=== PATIENT | female | born 1960 | race Caucasian/White ===

== ENCOUNTER 2016-10-05 22:02 | Inpatient (IN) ==
[2016-10-06] MEDS ORDERED: Naloxone 0.4 MG/ML INJ IVP PRN ×2 (00:07→14:40)
[2016-10-06] MEDS ORDERED: Pantoprazole 40 MG VIAL IVP ONE (00:10)
--- NOTE | 2016-10-06 00:15 | Internal Med History&Physical ---
Date of Encounter: 10/06/16 Time of Encounter: 00:14 Assessment and Plan (1) Acute and chronic respiratory failure Current visit: Yes Status: Acute Possibly due to COPD exacerbation versus post PRBC transfusion. Patient is on BiPAP therapy with improvement in clinical status. Monitor her in the ICU. Consider intubation mechanical ventilation, if there is deterioration in the clinical status (Pt is agreeable for intubation in case of deterioration in clinical status. Qualifiers: Respiratory failure complication: hypoxia and hypercapnia Qualified Code(s) : J96.21 - Acute and chronic respiratory failure with hypoxia; J96.22 - Acute and chronic respiratory failure with hypercapnia (2) Respiratory acidosis Current visit: Yes Status: Acute COntinue BIPAP Therepy - pt is improving (3) Acute exacerbation of chronic obstructive airways disease Current visit: Yes Status: Acute Treatment Bronchodilators. We will be cautious with steroids, in view of suspected upper GI bleed. (4) Upper GI bleed Current visit: Yes Status: Acute Pt reported coffee ground emesis (pt is on anticoagulation with xarelto). Uncertain if this is due to upper GI bleed versus epistaxis. Patient is started on pantoprazole infusion. Gastroenterology consultation (5) CAD (coronary artery disease) Current visit: Yes Status: Acute COntinue home medications Qualifiers: Coronary Disease-Associated Artery/Lesion type: [place] artery [place] vs. transplanted heart: [place] heart Associated angina: without angina Qualified Code(s): I25.10 - Atherosclerotic heart disease of [place] coronary artery without angina pectoris (6) Hypertension Current visit: Yes Status: Acute Monitor BP - consider restarting home meds Qualifiers: Hypertension type: essential hypertension Qualified Code(s): I10 - Essential (primary) hypertension (7) Anemia Current visit: No Status: Chronic Reviewed labs from Aug 2016 - Iron studies show iron deficiency; vitamin B12 and folate levels - normal Qualifiers: Anemia type: iron deficiency Iron deficiency anemia type: unspecified iron deficiency Qualified Code(s): D50.9 - Iron deficiency anemia, unspecified (8) Nicotine dependence Current visit: Yes Status: Acute Pt apparently stopped smoking about 4 days ago. Does not want nicotine patches. Qualifiers: Nicotine product type: cigarettes Substance use status: other nicotine- induced disorder Qualified Code(s): F17.218 - Nicotine dependence, cigarettes , with other nicotine-induced disorders Internal Medicine - H&P: HPI Chief complaint: Coffee-ground emesis Admitted From: Hospital to Hospital Transfer Plans for Post Hospital Care: Transfer Half-Way Facility History of present illness: Ms. De Oliveira is a 56 year old female with Past mental history significant for COPD , coronary artery disease, hyperlipidemia, hypertension, pulmonary nodule. She is on chronic anticoagulation with xarelto, but she does not know why. She was recently admitted to [facility], in Aug 2016 and was discharged to SNF for rehabilitation. She apparently had an episode of coffee-ground emesis, and was taken to the emergency department at [facility]. She was noted to have hemoglobin of 6.8. She was given 1 unit of PRBC transfusion. She apparently was hypoxic on ABG showed CO2 retention and respiratory acidosis. She was started on BiPAP therapy and repeat ABG was worsening. She did not want to be intubated. She is transferred to the hospitalist service at [facility]. Pt reports an episode of coffee-ground emesis and blood. Reports dark stool but she cannot confirm if that is black in color. Reports shortness of breath and cough and whitish sputum. She denies chest pain, fever, chills, abdominal pain, dysuria, hematuria. Denies dizziness or loss of consciousness. Past Med Surg Social Fam HX - Past Medical History Medical history: COPD, coronary artery disease, hyperlipidemia, hypertension, myocardial infarction Psychiatric history: anxiety, depression - Past Surgical History Surgical History: angioplasty/stent - Social History Smoking Status: Current every day smoker Smokeless Tobacco Status: No Alcohol use: none Drug use: none - Family History Father Living Status: Hx Family Cardiac Disorders: No Hx Family Respiratory Disorders: No Hx Family Cancer: Yes (Colon) Hx Family GI Disorders: No Hx Family Endocrine Disorder: No Hx Family Neuromuscular Disorders: No Hx Family Neurologic Disorders: No Hx Family HEENT Disorders: No Hx Family Autoimmune Disorders: No Mother Living Status: Hx Family Cardiac Disorders: Yes (bradycardia) Hx Family Respiratory Disorders: Yes (copd, emphysema) Hx Family Cancer: Yes (lung cancer) Hx Family GI Disorders: No Hx Family Endocrine Disorder: Yes (Diabetes) Hx Family Neuromuscular Disorders: No Hx Family Neurologic Disorders: No Hx Family HEENT Disorders: No Hx Family Autoimmune Disorders: No Internal Medicine - H&P: Meds Atorvastatin Calcium [Lipitor] 80 mg PO DAILY 04/28/15 [History] Budesonide/Formoterol 160/4.5 [Symbicort] 2 puff IH BIDR 04/28/15 [History] Ticagrelor [Brilinta] 90 mg PO BID 04/28/15 [History] Rivaroxaban [Xarelto] 15 mg PO DAILY 08/29/15 [History] Roflumilast [Daliresp] 500 mcg PO DAILY 08/29/15 [History] Albuterol Sulfate [Ventolin Hfa] 18 gm IH BID 08/24/16 [History] Calcium Carbonate [Calcium] 600 mg PO BID 09/24/16 [History] Guaifenesin [Mucinex] 600 mg PO BID 09/24/16 [History] Phos-NaK [Neutra-Phos] 1 each PO AD 09/24/16 [History] Aspirin [Lo-Dose Aspirin EC] 81 mg PO DAILY 10/05/16 [History] Allergies codeine Allergy (Verified 08/24/16 14:49) unknown All Systems PM: A 10-system review of systems was performed and is negative for pertinent findings except as documented above in the HPI. - Constitutional Vitals: Temp Pulse Resp BP Pulse Ox 97.5 F L 85 20 99/57 100 10/05/16 23:40 10/05/16 23:41 10/05/16 23:41 10/05/16 23:41 10/05/16 23:41 Exam: General: Not in acute distress at the time of my evaluation HEENT: BiPAP in place. No scleral icterus. conjunctival palor present Neck: No obvious neck swellings Lungs: Diminished breath sounds bilaterally Cardiac: Regular rate and rhythm. No significant murmurs Abdomen: Soft, non tender. Bowel sounds present Neurological: Alert and oriented. No gross localizing deficits Psych: Not aggressive or agitated Extremities: no significant leg edema Skin: No generalized rash Internal Med - H&P Results - Labs CBC & Chem 7: 10/06/16 00:40 10/06/16 00:40 - VTE Reasons for not Prescribing Prophylaxis: Not indicated-Anticoagulated or INR therapeutic
[2016-10-06] MEDS: Ipratropium/Albuterol Neb 3 ML IH SCH ×6 (00:21→22:42)
[2016-10-06 00:25] LABS: ABG Base Excess 22.5 mEq/L (-2.0 to 3.0); ABG HCO3 52.4 mEQ/L (21-27); ABG Oxygen Saturation 98 % (95-98); ABG PH 7.31 pH Units (7.32-7.45); ABG PO2 112 mmHg (85-104); ABG TCO2 55.6 mEq/L (20-26)
[2016-10-06 00:26] LABS: Blood Gas FiO2 50 %
[2016-10-06 00:27] LABS: ABG PCO2 104 mmHg (35-45)
[2016-10-06] MEDS: Pantoprazole 40 MG in 0.9 % Sodium Chloride Mini Bag 100 ML IVC SCH ×3 (00:31→10:08)
[2016-10-06 01:06] LABS: Hemoglobin 8.3 g/dL (11.5-15.4); Red Cell Distribution Width 20.1 % (11.5-14.5)
[2016-10-06 01:08] LABS: Hematocrit 28.9 % (35.3-44.9); Mean Corpuscular HGB Conc 28.7 g/dL (31.6-35.5); Mean Corpuscular Hemoglobin 27.2 pg (28.0-33.3); Mean Corpuscular Volume 94.8 fL (83.0-100.0); Platelet Count 201 K/mcL (140-400); Red Blood Count 3.05 M/mcL (3.82-4.97)
[2016-10-06 01:23] LABS: BUN/Creatinine Ratio 21 (6-26); Blood Urea Nitrogen 10 mg/dL (7-20); Calcium 8.7 mg/dL (8.6-10.8); Chloride 94 mEq/L (98-109); Glucose 128 mg/dL (70-99); Magnesium 1.5 mg/dL (1.6-2.6); Osmolality,Calculated 289 (280-300); Sodium 139 mEq/L (136-145); eGFR For African Americans > 60 (> 60); eGFR For Non-African Americans > 60 (> 60)
[2016-10-06 01:25] LABS: Potassium 5.1 mEq/L (3.5-4.5)
[2016-10-06 01:26] LABS: Carbon Dioxide 41 mEq/L (19-29)
[2016-10-06] MEDS ORDERED: Furosemide 20 MG/2 ML VIAL IVP ONE ×3 (07:12→08:01)
[2016-10-06] MEDS ORDERED: Magnesium Sulfate 2 GM in D5% in Water 100 ML IVPB ONE (07:13)
--- NOTE | 2016-10-06 07:20 | Pulmonology Consult Note ---
<Oskar Kay W - Last Filed: 10/06/16 12:04> Medications and Allergies Atorvastatin Calcium [Lipitor] 80 mg PO DAILY 04/28/15 [History] Budesonide/Formoterol 160/4.5 [Symbicort] 2 puff IH BIDR 04/28/15 [History] Ticagrelor [Brilinta] 90 mg PO BID 04/28/15 [History] Rivaroxaban [Xarelto] 15 mg PO DAILY 08/29/15 [History] Roflumilast [Daliresp] 500 mcg PO DAILY 08/29/15 [History] Albuterol Sulfate [Ventolin Hfa] 18 gm IH BID 08/24/16 [History] Calcium Carbonate [Calcium] 600 mg PO BID 09/24/16 [History] Guaifenesin [Mucinex] 600 mg PO BID 09/24/16 [History] Phos-NaK [Neutra-Phos] 1 each PO AD 09/24/16 [History] Aspirin [Lo-Dose Aspirin EC] 81 mg PO DAILY 10/05/16 [History] Allergies codeine Allergy (Verified 08/24/16 14:49) unknown All Systems: A 10-system review of systems was performed and is negative for pertinent findings except as documented above in the HPI. Physical Examination Vital Signs: Vital Signs, Last 4 Hours Temp Pulse Resp BP Pulse Ox 10/06/16 07:59 97.7 F 10/06/16 07:00 97.7 F 86 19 90/59 97 10/06/16 05:56 78 30 94/59 94 L Results - Laboratory Findings CBC and BMP: 10/06/16 10:40 10/06/16 10:40 ABG ABG pH 7.31 pH Units (7.32-7.45) L D 10/06/16 00:17 ABG pCO2 104 mmHg (35-45) H* D 10/06/16 00:17 ABG pO2 112 mmHg (85-104) H 10/06/16 00:17 ABG O2 Saturation 98 % (95-98) 10/06/16 00:17 Abnormal lab findings: Abnormal lab results WBC 3.9 K/mcL (4.3-11.1) L 10/06/16 00:40 RBC 3.05 M/mcL (3.82-4.97) L 10/06/16 00:40 Hgb 8.3 g/dL (11.5-15.4) L 10/06/16 00:40 Hct 28.9 % (35.3-44.9) L 10/06/16 00:40 MCH 27.2 pg (28.0-33.3) L 10/06/16 00:40 MCHC 28.7 g/dL (31.6-35.5) L 10/06/16 00:40 RDW 20.1 % (11.5-14.5) H 10/06/16 00:40 ABG pH 7.31 pH Units (7.32-7.45) L D 10/06/16 00:17 ABG pCO2 104 mmHg (35-45) H* D 10/06/16 00:17 ABG pO2 112 mmHg (85-104) H 10/06/16 00:17 ABG HCO3 52.4 mEQ/L (21-27) H 10/06/16 00:17 ABG Total CO2 55.6 mEq/L (20-26) H 10/06/16 00:17 ABG Base Excess 22.5 mEq/L (-2.0 to 3.0) H 10/06/16 00:17 Potassium 5.1 mEq/L (3.5-4.5) H D 10/06/16 00:40 Chloride 94 mEq/L (98-109) L 10/06/16 00:40 Carbon Dioxide 41 mEq/L (19-29) H* 10/06/16 00:40 Creatinine 0.47 mg/dL (0.57-1.11) L 10/06/16 00:40 Glucose 128 mg/dL (70-99) H 10/06/16 00:40 POC Glucose 147 (58-89) H 10/05/16 23:45 Magnesium 1.5 mg/dL (1.6-2.6) L 10/06/16 00:40 - Clinical Findings Intake & Output: Intake & Output 10/05/16 10/06/16 10/06/16 23:59 07:59 15:59 Intake Total 0 / 0 100 / 100 Output Total 900 / 900 Balance 0 / 0 -800 / -800 Weight 47 kg Consult Discharge Plan - Plan Referrals: Larry Chanel MD [Primary Care Provider] - - Attending Attestation I examined this patient and my medical decision-making was reviewed with the [employer] SUPERVISOR/PA/Advanced Practice Nurse/Resident Physician. I agree with the documented findings, disposition and treatment plan as described except to the extent set forth below. Patient seen and examined at bedside Labs, radiology, chart personally reviewed. All lines examined without evidence of infection. Neuropsych: Alert an Oriented follows all commands Pulm: Acute on chronic hypoxic and hypercarbic respiratory failure likely secondary to pulmonary edema with severe underlying COPD continue diuresis bilevel positive airway pressure support recheck ABG Cards: ECG without STEMI Trope within normal limits with atrial fibrillation on Plavix, ASA and NOAC being held for concern of GI hemorrhage FEN-GI: Possible upper GI be bleed was considered for coffee-ground emesis no H& H is stable no further evidence of bleeding today continue twice a day dosing of PPI -GI consulted. Cont NPO status Renal: No AK continue to monitor urine output checked twice daily renal function panel while actively diuresing ID: No evidence of acute infection continue to monitor Heme/Onc: Mechanical SCDs for DVT prophylaxis Endo: Glucose monitor Integ/MSK: Skin Care Per ICU protocol CODE: Full code <Kevin Wyatt - Last Filed: 10/06/16 12:22> Date of Encounter: 10/06/16 Time of Encounter: 07:20 Assessment and Plan (1) Upper GI bleed Current Visit: Yes Status: Suspected Patient with subjective melena admittedly over the last few months one episode of coffee ground emesis she is currently anticoagulated on Xarelto, Brilinta, and aspirin for a fib and coronary artery disease with a stent in the RCA her hemoglobin was 6.8 on arrival at [facility]. She received 1 unit packed PRBC with appropriate response of increase hemoglobin to 8.3. Repeat hemoglobin this morning was 7.6. plan -hold anticoagulation -type and screen -Protonix IV BID -PRBC transfusions to maintain hemoglobin greater than 7 -Doroteo has been consulted, appreciate the recommendations. Spoke with Doroteo CHAPA this morning and they were planned to do and EGD Sunday. -Blood cultures and sputum cultures pending -CBC, BMP BID (2) Acute and chronic respiratory failure Current Visit: Yes Status: Acute Patient with history of COPD, lifelong smoker, still smoking she currently uses 4 L of oxygen at home all the time she is currently oxygenating appropriately on noninvasive bilevel ventilation set to 35% FI02 with saturations in the mid-90s she may require intubation if her clinical status deteriorates initially she had a significant respiratory acidosis while at [facility]. pH was 7.17, PCO2 125, HCO3 45.1 most recent ABG shows pH of 7.49, PCO2 of 68, HCO3 of 51.8 plan -one-time dose of Diamox -noninvasive ventilation with bilevel -maintain oxygen saturations greater than 88% -bronchodilators -Solu-Medrol 40 mg BID -serial ABGs Qualifiers: Respiratory failure complication: hypoxia and hypercapnia Qualified Code(s) : J96.21 - Acute and chronic respiratory failure with hypoxia; J96.22 - Acute and chronic respiratory failure with hypercapnia (3) Hyperkalemia Current Visit: Yes Status: Acute Initial potassium of 5.1. Patient received 1 dose of Kayexelate repeat potassium 4.0. Recheck chemistry panel this afternoon and in the morning. (4) CAD (coronary artery disease) Current Visit: Yes Status: Chronic History of an NSTEMI in 2013. Had one stent placed in the RCA. On Brilinta and aspirin. Hold For now due to possible G.I. bleed patient not complaining of any chest pain. Initial troponins 0.[address] wave abnormality Qualifiers: Coronary Disease-Associated Artery/Lesion type: [place] artery [place] vs. transplanted heart: [place] heart Associated angina: without angina Qualified Code(s): I25.10 - Atherosclerotic heart disease of [place] coronary artery without angina pectoris (5) Anemia Current Visit: No Status: Suspected Hemoglobin of 6.7 on admission to [facility]. Transfused 1 unit PRBC, repeat hemoglobin 8.3 hemoglobin this morning 7.6 her hemoglobin the last 2 years baselines about 10. G.I. on board, plan for EGD on Sunday. Transfuse as necessary to keep hemoglobin above 7 Qualifiers: Anemia type: iron deficiency Iron deficiency anemia type: unspecified iron deficiency Qualified Code(s): D50.9 - Iron deficiency anemia, unspecified (6) Afib Current Visit: Yes Status: Chronic Medical records search revealed history of a fib. Currently she is a normal sinus rhythm She does not take any rate control medication, or antiarrhythmic's. Anticoagulated on Xarelto. Will hold at this time due to possible G.I. bleed. Consider adding IV beta simon for rate control if she becomes tachycardic Qualifiers: Atrial fibrillation type: paroxysmal Qualified Code(s): I48.0 - Paroxysmal atrial fibrillation History of Present Illness Consult date: 10/06/16 Requesting physician: Param Cheng Reason for consult: hypoxemia Chief complaint: coffee ground emesis History of present illness: Ms. De Oliveira is a 56 year old female with Past mental history significant for COPD , coronary artery disease, ischemic cardiomyopathy S/P stent in RCA in 2013 (on Brilinta and ASA), PVD, hyperlipidemia, hypertension, pulmonary nodule, paroxysmal a fib anticoagulated on Xarelto. She lives in a [place] and had one episode of coffee ground emesis. Nursing staff at the facility sent her to the emergency room at [facility]. She also states that she has had occasional dark tarry stools. She was noted to have hemoglobin of 6.8. She was given 1 unit of PRBC transfusion. She was hypoxic on ABG showed CO2 retention and respiratory acidosis. She was started on BiPAP therapy and repeat ABG was worsening. Pt reports an episode of coffee-ground emesis and blood. Reports dark stool but she cannot confirm if that is black in color. Reports shortness of breath and cough and whitish sputum. She denies chest pain, fever, chills, abdominal pain, dysuria, hematuria. Denies dizziness or loss of consciousnes Past Med Surg Social Fam HX - Past Medical History Medical history: COPD, coronary artery disease, hyperlipidemia, hypertension, myocardial infarction Psychiatric history: anxiety, depression - Past Surgical History Surgical History: angioplasty/stent - Social History Smoking Status: Current every day smoker Smokeless Tobacco Status: No Alcohol use: none Drug use: none - Family History Father Living Status: Hx Family Cardiac Disorders: No Hx Family Respiratory Disorders: No Hx Family Cancer: Yes (Colon) Hx Family GI Disorders: No Hx Family Endocrine Disorder: No Hx Family Neuromuscular Disorders: No Hx Family Neurologic Disorders: No Hx Family HEENT Disorders: No Hx Family Autoimmune Disorders: No Mother Living Status: Hx Family Cardiac Disorders: Yes (bradycardia) Hx Family Respiratory Disorders: Yes (copd, emphysema) Hx Family Cancer: Yes (lung cancer) Hx Family GI Disorders: No Hx Family Endocrine Disorder: Yes (Diabetes) Hx Family Neuromuscular Disorders: No Hx Family Neurologic Disorders: No Hx Family HEENT Disorders: No Hx Family Autoimmune Disorders: No All Systems: A 10-system review of systems was performed and is negative for pertinent findings except as documented above in the HPI. - Constitutional Constitutional: fatigue, lethargy - EENT Nose, mouth and throat: epistaxis - Cardiovascular Cardiovascular: dyspnea, dyspnea on exertion, no chest pain, no diaphoresis, no radiating jaw, neck or arm pain - Respiratory Respiratory: cough, dyspnea, dyspnea on exertion, no hemoptysis - Gastrointestinal Gastrointestinal: melena, nausea, vomiting, no abdominal pain, no cramping, no diarrhea, no hematemesis, no hematochezia - Neurological Neurological: no confusion, no convulsions, no focal weakness, no headache(s), no syncope - Psychiatric Psychiatric: anxiety Physical Examination Vital Signs: Vital Signs, Last 4 Hours Temp Pulse Resp BP Pulse Ox 10/06/16 05:56 78 30 94/59 94 L 10/06/16 05:00 77 30 90/59 94 L 10/06/16 04:49 97.3 F L 10/06/16 04:30 26 94 L 10/06/16 04:01 79 27 87/50 93 L General appearance: appears uncomfortable Eyes: nonicteric ENT: oropharynx dry Neck: supple Effort: mildly labored Auscultation: bilateral: wheezes, rhonchi Cardiovascular: regular rate and rhythm Gastrointestinal: normoactive bowel sounds, tender, non-distended, guarding Extremities: no cyanosis, no edema, no clubbing normal mental status, non-focal exam Results - Laboratory Findings CBC and BMP: 10/06/16 10:40 10/06/16 10:40 ABG ABG pH 7.31 pH Units (7.32-7.45) L D 10/06/16 00:17 ABG pCO2 104 mmHg (35-45) H* D 10/06/16 00:17 ABG pO2 112 mmHg (85-104) H 10/06/16 00:17 ABG O2 Saturation 98 % (95-98) 10/06/16 00:17 Abnormal lab findings: Abnormal lab results WBC 3.9 K/mcL (4.3-11.1) L 10/06/16 00:40 RBC 3.05 M/mcL (3.82-4.97) L 10/06/16 00:40 Hgb 8.3 g/dL (11.5-15.4) L 10/06/16 00:40 Hct 28.9 % (35.3-44.9) L 10/06/16 00:40 MCH 27.2 pg (28.0-33.3) L 10/06/16 00:40 MCHC 28.7 g/dL (31.6-35.5) L 10/06/16 00:40 RDW 20.1 % (11.5-14.5) H 10/06/16 00:40 ABG pH 7.31 pH Units (7.32-7.45) L D 10/06/16 00:17 ABG pCO2 104 mmHg (35-45) H* D 10/06/16 00:17 ABG pO2 112 mmHg (85-104) H 10/06/16 00:17 ABG HCO3 52.4 mEQ/L (21-27) H 10/06/16 00:17 ABG Total CO2 55.6 mEq/L (20-26) H 10/06/16 00:17 ABG Base Excess 22.5 mEq/L (-2.0 to 3.0) H 10/06/16 00:17 Potassium 5.1 mEq/L (3.5-4.5) H D 10/06/16 00:40 Chloride 94 mEq/L (98-109) L 10/06/16 00:40 Carbon Dioxide 41 mEq/L (19-29) H* 10/06/16 00:40 Creatinine 0.47 mg/dL (0.57-1.11) L 10/06/16 00:40 Glucose 128 mg/dL (70-99) H 10/06/16 00:40 POC Glucose 147 (58-89) H 10/05/16 23:45 Magnesium 1.5 mg/dL (1.6-2.6) L 10/06/16 00:40 - Clinical Findings Intake & Output: Intake & Output 10/05/16 10/05/16 10/06/16 15:59 23:59 07:59 Intake Total 0 / 0 100 / 100 Output Total 900 / 900 Balance 0 / 0 -800 / -800 Weight 47 kg
[2016-10-06 10:55] LABS: Hematocrit 25.9 % (35.3-44.9); Hemoglobin 7.6 g/dL (11.5-15.4); Mean Corpuscular HGB Conc 29.3 g/dL (31.6-35.5); Mean Corpuscular Hemoglobin 27.2 pg (28.0-33.3); Mean Corpuscular Volume 92.8 fL (83.0-100.0); Mean Platelet Volume 11.6 fL (9.4-12.4); Platelet Count 208 K/mcL (140-400); Red Blood Count 2.79 M/mcL (3.82-4.97)
--- NOTE | 2016-10-06 10:55 | Gastroenterology Consult Note ---
<CarsonJose Baez - Last Filed: 10/06/16 11:10> Date of Encounter: 10/06/16 Time of Encounter: 09:50 - Assessment and plan (1) Acute and chronic respiratory failure Current Visit: Yes Status: Acute Assessment and plan: Likely secondary to COPD exacerbation. Pt currently on BiPAP. ABG pH 7.31, CO2 104, O2 112, HCO3 52.4. Management per ICU team Qualifiers: Respiratory failure complication: hypoxia and hypercapnia Qualified Code(s) : J96.21 - Acute and chronic respiratory failure with hypoxia; J96.22 - Acute and chronic respiratory failure with hypercapnia (2) Upper GI bleed Current Visit: Yes Status: Acute Assessment and plan: Pt with coffee-ground emesis and bright red blood. She is on Xarelto. Continue Protonix drip. Plan for EGD once respiratory status is stabilized. (3) Anemia Current Visit: No Status: Chronic Assessment and plan: Iron 8 with ferritin 8 on 09/19/2016. Continue to monitor CBC and transfuse PRBC as indicated. Plan for EGD once respiratory status is stabilized. Qualifiers: Anemia type: iron deficiency Iron deficiency anemia type: unspecified iron deficiency Qualified Code(s): D50.9 - Iron deficiency anemia, unspecified - Time Spent With Patient Total time spent is greater than 50% in coordination of care (as documented) at patient's floor/unit and/or counseling patient: GI History of Present Illness - Data of Consult Patient: new to practice Consult date: 10/06/16 Requesting Physician: Gavino Lancaster MD - Consult Narrative Reason for consult: hematemesis History of present illness: Ms. De Oliveira is a 56 year old female with PMHx of COPD, CAD, HLD, HTN, [place] who presented to [facility] ED with episode of coffee-ground emesis and bright red blood. She also reports dark stool, but unsure if it was black. She c/o shortness of breath. She denies chest pain, fever, abdominal pain, hematuria, dizziness, or loss of consciousness. On presentation to the ED, Hgb was 6.8 and was transfused 1 unit PRBC. Pt was also hypoxic with CO2 retention and was placed on BiPAP. Procedures: None NSAIDs: ASA Anticoagulation: Xarelto Past Med Surg Social Fam HX - Past Medical History Medical history: COPD, coronary artery disease, hyperlipidemia, hypertension, myocardial infarction Psychiatric history: anxiety, depression - Past Surgical History Surgical History: angioplasty/stent - Social History Smoking Status: Current every day smoker Smokeless Tobacco Status: No Alcohol use: none Drug use: none - Family History Father Living Status: Hx Family Cardiac Disorders: No Hx Family Respiratory Disorders: No Hx Family Cancer: Yes (Colon) Hx Family GI Disorders: No Hx Family Endocrine Disorder: No Hx Family Neuromuscular Disorders: No Hx Family Neurologic Disorders: No Hx Family HEENT Disorders: No Hx Family Autoimmune Disorders: No Mother Living Status: Hx Family Cardiac Disorders: Yes (bradycardia) Hx Family Respiratory Disorders: Yes (copd, emphysema) Hx Family Cancer: Yes (lung cancer) Hx Family GI Disorders: No Hx Family Endocrine Disorder: Yes (Diabetes) Hx Family Neuromuscular Disorders: No Hx Family Neurologic Disorders: No Hx Family HEENT Disorders: No Hx Family Autoimmune Disorders: No - Gastrointestinal Gastrointestinal: Present: as per HPI - Constitutional Constitutional: as per HPI - EENT Eyes: as per HPI Ears: Present: as per HPI Nose, mouth and throat: Present: as per HPI - Cardiovascular Cardiovascular ROS: Present: as per HPI - Respiratory Respiratory IM: Present: as per HPI - Genitourinary Genitourinary: Absent: change in color, Urinary frequency - Neurological ROS Neurological GI: Present: as per HPI - Hematologic/Lymphatic Hematologic/Lymphatic pediatric: Present: as per HPI - Musculoskeletal Musculoskeletal ROS GI: Present: as per HPI - Integumentary Integumentary GI: Present: as per HPI - Psychiatric ROS Psychiatric GI: Present: as per HPI - Endocrine Endocrine IM: Present: as per HPI - Constitutional Vitals: Temp Pulse Resp BP Pulse Ox 97.7 F 93 23 101/70 95 10/06/16 07:59 10/06/16 10:01 10/06/16 10:01 10/06/16 10:01 10/06/16 10:01 General appearance: Present: cooperative, A&O X 3, no acute distress, answers questions appropriately - Head Head exam: Present: atraumatic, normocephalic - Eye Eye exam: Present: normal appearance, sclera anicteric - ENT ENT exam: Present: mucous membranes dry - Neck Neck exam general surgery: Present: normal inspection, trachea midline - Respiratory Respiratory exam: Present: decreased breath sounds, CTAB. Absent: rales, rhonchi - Cardiovascular Cardiovascular exam: Present: RRR, +S1, +S2 - GI/Abdominal GI/Abdominal exam: Present: soft, no peritoneal signs. Absent: distended, firm , guarding, tenderness - Rectal Rectal exam: Present: deferred - Extremities Exam Extremities exam: Present: warm - Neurological Exam Neurological exam: Present: no focal deficits - Psychiatric Psychiatric exam: Present: normal affect, normal mood - Skin Skin exam: Present: dry, intact, normal color, warm Results - Labs CBC & Chem 7: 10/06/16 10:40 10/06/16 00:40 Labs: Last Result Calcium 8.7 mg/dL (8.6-10.8) 10/06/16 00:40 Entire Visit Hgb 8.3 g/dL (11.5-15.4) L 10/06/16 00:40 Hct 28.9 % (35.3-44.9) L 10/06/16 00:40 - ABG ABG results: ABG ABG pH 7.31 pH Units (7.32-7.45) L D 10/06/16 00:17 ABG pCO2 104 mmHg (35-45) H* D 10/06/16 00:17 ABG pO2 112 mmHg (85-104) H 10/06/16 00:17 ABG O2 Saturation 98 % (95-98) 10/06/16 00:17 Consult Discharge Plan - Plan Referrals: Larry Chanel MD [Primary Care Provider] - <Tk Anthony - Last Filed: 10/06/16 12:41> Time of Encounter: 13:00 - Time Spent With Patient Total time spent is greater than 50% in coordination of care (as documented) at patient's floor/unit and/or counseling patient: GI History of Present Illness - Data of Consult Requesting Physician: Gavino Lancaster MD - Consult Narrative History of present illness: Ms. De Oliveira is a 56 year old female - Constitutional Vitals: Temp Pulse Resp BP Pulse Ox 97.7 F 93 23 101/70 95 10/06/16 07:59 10/06/16 10:01 10/06/16 10:01 10/06/16 10:01 10/06/16 10:01 Results - Labs CBC & Chem 7: 10/06/16 10:40 10/06/16 10:40 Labs: Last Result Calcium 8.5 mg/dL (8.6-10.8) L 10/06/16 10:40 Troponin I 0.00 ng/mL (0-0.03) 10/06/16 10:40 Entire Visit Hgb 7.6 g/dL (11.5-15.4) L 10/06/16 10:40 Hct 25.9 % (35.3-44.9) L 10/06/16 10:40 PT 12.3 Seconds (9.4-12.1) H 10/06/16 10:40 - ABG ABG results: ABG ABG pH 7.49 pH Units (7.32-7.45) H 10/06/16 11:20 ABG pCO2 68 mmHg (35-45) H 10/06/16 11:20 ABG pO2 58 mmHg (85-104) L 10/06/16 11:20 ABG O2 Saturation 92 % (95-98) L 10/06/16 11:20 PT/INR, D-dimer PT 12.3 Seconds (9.4-12.1) H 10/06/16 10:40 - Attending Attestation I examined this patient and my medical decision-making was reviewed with the CATTLE ALLEY WORKER/PA/Advanced Practice Nurse/Resident Physician. I agree with the documented findings, disposition and treatment plan as described except to the extent set forth below. Patient seen coffee-ground emesis is most probably due to some gastritis. Patient does has bad lungs and there is no active GI bleed there is no acute indication for scope at this point
[2016-10-06 10:59] LABS: INR 1.1; Prothrombin Time 12.3 Seconds (9.4-12.1)
[2016-10-06 11:01] LABS: Activated Partial Thrombo Time 24.2 Seconds (26.0-36.0)
[2016-10-06 11:04] LABS: BUN/Creatinine Ratio 26 (6-26); Blood Urea Nitrogen 13 mg/dL (7-20); Calcium 8.5 mg/dL (8.6-10.8); Chloride 93 mEq/L (98-109); Glucose 110 mg/dL (70-99); Osmolality,Calculated 297 (280-300); Sodium 143 mEq/L (136-145); eGFR For African Americans > 60 (> 60); eGFR For Non-African Americans > 60 (> 60)
[2016-10-06 11:18] LABS: Carbon Dioxide 43 mEq/L (19-29)
[2016-10-06 11:25] LABS: ABG Base Excess 25.5 mEq/L (-2.0 to 3.0); ABG HCO3 51.8 mEQ/L (21-27); ABG Oxygen Saturation 92 % (95-98); ABG PCO2 68 mmHg (35-45); ABG PH 7.49 pH Units (7.32-7.45); ABG PO2 58 mmHg (85-104); ABG TCO2 53.9 mEq/L (20-26)
[2016-10-06 11:31] LABS: Blood Gas FiO2 35 %
[2016-10-06 11:34] LABS: Lymphocytes # 0.6 K/mcL (0.6-4.6); Monocytes # 0.6 K/mcL (0.0-1.3); Neutrophils # 3.2 K/mcL (1.6-8.9)
[2016-10-06 11:35] LABS: Anisocytosis 1+ (Not Present); Polychromasia 1+ (Not Present)
[2016-10-06] MEDS: MethylPREDNISolone 40 MG/ML VIAL IVP SCH (17:46)
[2016-10-06] MEDS ORDERED: MethylPREDNISolone 40 MG/ML VIAL IVP SCH (18:00)
[2016-10-06 18:07] LABS: Hemoglobin 7.7 g/dL (11.5-15.4)
[2016-10-06] MEDS: Pantoprazole 40 MG VIAL IVP SCH (20:32)
[2016-10-06] MEDS ORDERED: Pantoprazole 40 MG VIAL IVP SCH (21:00)
[2016-10-07] MEDS: Ipratropium/Albuterol Neb 3 ML IH SCH ×7 (00:21→23:30)
[2016-10-07] MEDS: Budesonide/Formoterol 160/4.5 MDI IH SCH ×3 (00:22→19:54)
[2016-10-07 01:04] LABS: Hematocrit 26.3 % (35.3-44.9)
[2016-10-07 04:50] LABS: Hematocrit 26.4 % (35.3-44.9); Hemoglobin 8.1 g/dL (11.5-15.4); Immature Granulocytes % 0.5 % (0-4); Lymphocytes # 0.6 K/mcL (0.6-4.6); Lymphocytes % 7.2 %; Mean Corpuscular HGB Conc 30.7 g/dL (31.6-35.5); Mean Corpuscular Hemoglobin 27.6 pg (28.0-33.3); Mean Corpuscular Volume 90.1 fL (83.0-100.0); Mean Platelet Volume 11.3 fL (9.4-12.4); Monocytes # 0.3 K/mcL (0.0-1.3); Neutrophils # 7.3 K/mcL (1.6-8.9); Platelet Count 256 K/mcL (140-400); Red Blood Count 2.93 M/mcL (3.82-4.97); Red Cell Distribution Width 20.9 % (11.5-14.5); Segmented Neutrophils % 88.3 %
[2016-10-07 04:59] LABS: BUN/Creatinine Ratio 34 (6-26); Blood Urea Nitrogen 18 mg/dL (7-20); Calcium 8.2 mg/dL (8.6-10.8); Carbon Dioxide 38 mEq/L (19-29); Chloride 90 mEq/L (98-109); Glucose 115 mg/dL (70-99); Magnesium 1.3 mg/dL (1.6-2.6); Osmolality,Calculated 287 (280-300); Potassium 3.2 mEq/L (3.5-4.5); Sodium 137 mEq/L (136-145); eGFR For African Americans > 60 (> 60); eGFR For Non-African Americans > 60 (> 60)
[2016-10-07] MEDS: MethylPREDNISolone 40 MG/ML VIAL IVP SCH ×2 (05:52→17:11)
[2016-10-07] MEDS ORDERED: Potassium Chloride 20 MEQ, Lidocaine 1% 2 ML in D5% in Water 250 ML IVPB ONE (07:45)
[2016-10-07] MEDS ORDERED: Magnesium Sulfate 2 GM in D5% in Water 100 ML IVPB ONE (07:45)
[2016-10-07] MEDS: Pantoprazole 40 MG VIAL IVP SCH ×2 (08:47→20:05)
[2016-10-07] MEDS: DALIRESP 500 MCG PO SCH (09:09)
[2016-10-07] MEDS ORDERED: Ipratropium/Albuterol Neb 3 ML IH PRN (10:31)
--- NOTE | 2016-10-07 10:36 | Internal Med Progress Note ---
Date of Encounter: 10/07/16 Time of Encounter: 10:34 - Assessment and plan (1) Anemia Current Visit: No Status: Suspected Assessment and plan: Acute blood loss anemia secondary to UGIB No acute episodes reported since hospitalization H&H low but acceptable Will continue to closely monitor and will transfuse to maintain hgb>7 GI on board, awaiting follow up for EGD as patient's respiratory status is improved continue to hold anticoagulation Qualifiers: Anemia type: iron deficiency Iron deficiency anemia type: unspecified iron deficiency Qualified Code(s): D50.9 - Iron deficiency anemia, unspecified (2) Upper GI bleed Current Visit: Yes Status: Suspected Assessment and plan: Plan as listed above Continue PPI BID (3) Acute and chronic respiratory failure Current Visit: Yes Status: Acute Assessment and plan: History of COPD and an everyday smoker. On home oxygen History of chronic respiratory failure with hypercapnia Currently saturating well on nasal cannula will continue systemic steroids and bronchodilator support O2 supplementation Bipap at bedtime serial ABG as needed continue to monitor O2 sat, goal O2 sat: 89-92% GI ppx for high steroid therapy Qualifiers: Respiratory failure complication: hypoxia and hypercapnia Qualified Code(s) : J96.21 - Acute and chronic respiratory failure with hypoxia; J96.22 - Acute and chronic respiratory failure with hypercapnia (4) Acute exacerbation of chronic obstructive airways disease Current Visit: Yes Status: Acute Assessment and plan: Plan as listed above (5) Electrolyte abnormality Current Visit: Yes Status: Acute Assessment and plan: Hypomagnesemia and Hypophosphatemia Mg and Phos supplemented continue to monitor electrolytes and replace as needed (6) Afib Current Visit: Yes Status: Chronic Assessment and plan: Reported history of Afib but not on any rate control medications Currently rate controlled and in sinus rhythm Holding anticoagulation due to GI bleed continue to closely monitor Add BB if needed for rate control Qualifiers: Atrial fibrillation type: paroxysmal Qualified Code(s): I48.0 - Paroxysmal atrial fibrillation (7) Tobacco abuse Current Visit: Yes Status: Acute Assessment and plan: Smoking cessation counseling provided patient not ready to quit at this time refused nicotine replacement therapy (8) DVT prophylaxis Current Visit: Yes Status: Acute Assessment and plan: IPCD - Subjective Interval history: Patient is a 56y/o female who was admitted to the ICU for acute respiratory distress and Upper GI bleed. Patient was transferred to overnight. Patient seen and examined at bedside. Resting in bed. Denies any episodes of hemetemesis since hospitalization. Breathing comfortably on nasal cannula. Denies any discomfort at this time. - Constitutional Vitals: Temp Pulse Resp BP Pulse Ox 97.7 F 90 19 113/63 97 10/07/16 06:49 10/07/16 08:50 10/07/16 07:56 10/07/16 06:49 10/07/16 07:58 General appearance: Present: A&O X 3, no acute distress - Head Head exam: Present: atraumatic, normocephalic - Eye Eye exam: Present: normal appearance, conjuntiva pink, sclera anicteric - Respiratory Respiratory exam: Present: CTAB. Absent: respiratory distress, wheezes - Cardiovascular Cardiovascular exam: Present: RRR, +S1, +S2 - GI/Abdominal GI/Abdominal exam: Present: normal bowel sounds, soft. Absent: distended, tenderness - Extremities Exam Extremities exam: Present: warm, radial pulses palpable and symetrical. Absent : calf tenderness, pedal edema, tenderness - Neurological Exam Neurological exam: Present: alert, oriented X3 - Psychiatric Psychiatric exam: Present: normal affect, normal mood Internal Medicine: Result - Labs CBC & Chem 7: 10/07/16 04:40 10/07/16 04:40 Labs: Short CBC 10/06/16 10/06/16 10/07/16 Range/Units 10:40 17:40 00:50 WBC 4.4 (4.3-11.1) K/mcL Hgb 7.6 L 7.7 L 8.0 L (11.5-15.4) g/dL Hct 25.9 L 26.0 L 26.3 L (35.3-44.9) % Plt Count 208 (140-400) K/mcL Neutrophils # 3.2 (1.6-8.9) K/mcL 10/07/16 Range/Units 04:40 WBC 8.3 D (4.3-11.1) K/mcL Hgb 8.1 L (11.5-15.4) g/dL Hct 26.4 L (35.3-44.9) % Plt Count 256 (140-400) K/mcL Neutrophils # 7.3 (1.6-8.9) K/mcL BMP 10/06/16 10/07/16 10:40 04:40 Sodium 143 137 Potassium 4.0 D 3.2 L Chloride 93 L 90 L Carbon Dioxide 43 H* 38 H BUN 13 18 Creatinine 0.50 L 0.53 L Glucose 110 H 115 H Calcium 8.5 L 8.2 L Cardiac Enzymes 10/06/16 Range/Units 10:40 Troponin I 0.00 (0-0.03) ng/mL - ABG Interpretation ABG results: ABG ABG pH 7.49 pH Units (7.32-7.45) H 10/06/16 11:20 ABG pCO2 68 mmHg (35-45) H 10/06/16 11:20 ABG pO2 58 mmHg (85-104) L 10/06/16 11:20 ABG O2 Saturation 92 % (95-98) L 10/06/16 11:20 PT/INR, D-dimer PT 12.3 Seconds (9.4-12.1) H 10/06/16 10:40 - VTE Reasons for not Prescribing Prophylaxis: Not indicated-Anticoagulated or INR therapeutic Documentation of Mechanical Device: Intermittent pneumatic compression device Consult Discharge Plan - Plan Referrals: Larry Chanel MD [Primary Care Provider] -
[2016-10-08] MEDS: Ipratropium/Albuterol Neb 3 ML IH SCH ×6 (04:18→23:34)
[2016-10-08 04:50] LABS: Basophils % 0.1 %; Hematocrit 25.8 % (35.3-44.9); Hemoglobin 7.9 g/dL (11.5-15.4); Immature Granulocytes % 0.6 % (0-4); Lymphocytes # 0.6 K/mcL (0.6-4.6); Lymphocytes % 5.1 %; Mean Corpuscular HGB Conc 30.6 g/dL (31.6-35.5); Mean Corpuscular Hemoglobin 27.7 pg (28.0-33.3); Mean Corpuscular Volume 90.5 fL (83.0-100.0); Mean Platelet Volume 11.3 fL (9.4-12.4); Monocytes # 0.4 K/mcL (0.0-1.3); Monocytes % 3.8 %; Neutrophils # 9.7 K/mcL (1.6-8.9); Platelet Count 279 K/mcL (140-400); Red Blood Count 2.85 M/mcL (3.82-4.97); Red Cell Distribution Width 20.7 % (11.5-14.5); Segmented Neutrophils % 90.4 %
[2016-10-08 05:00] LABS: BUN/Creatinine Ratio 24 (6-26); Blood Urea Nitrogen 12 mg/dL (7-20); Calcium 8.2 mg/dL (8.6-10.8); Carbon Dioxide 37 mEq/L (19-29); Chloride 92 mEq/L (98-109); Glucose 132 mg/dL (70-99); Magnesium 1.6 mg/dL (1.6-2.6); Osmolality,Calculated 288 (280-300); Phosphorous 3.2 mg/dL (2.3-4.7); Potassium 3.7 mEq/L (3.5-4.5); Sodium 138 mEq/L (136-145); eGFR For African Americans > 60 (> 60); eGFR For Non-African Americans > 60 (> 60)
[2016-10-08] MEDS: MethylPREDNISolone 40 MG/ML VIAL IVP SCH ×2 (06:27→18:23)
[2016-10-08] MEDS: Pantoprazole 40 MG VIAL IVP SCH ×2 (08:48→20:32)
[2016-10-08] MEDS: DALIRESP 500 MCG PO SCH (09:08)
[2016-10-08] MEDS: Budesonide/Formoterol 160/4.5 MDI IH SCH ×2 (09:22→19:45)
--- NOTE | 2016-10-08 09:26 | Internal Med Progress Note ---
Date of Encounter: 10/08/16 Time of Encounter: 09:17 - Assessment and plan (1) Anemia Current Visit: No Status: Suspected Assessment and plan: Acute blood loss anemia secondary to UGIB No acute episodes reported since hospitalization H&H low but acceptable Will continue to closely monitor and will transfuse to maintain hgb>7. Repeat H& H this evening. GI on board, awaiting follow up for EGD as patient's respiratory status has improved Message left with 's office for possible EGD in am(10/09/16) NPO after midnight continue to hold anticoagulation Qualifiers: Anemia type: iron deficiency Iron deficiency anemia type: unspecified iron deficiency Qualified Code(s): D50.9 - Iron deficiency anemia, unspecified (2) Upper GI bleed Current Visit: Yes Status: Suspected Assessment and plan: Plan as listed above Continue PPI BID (3) Acute and chronic respiratory failure Current Visit: Yes Status: Acute Assessment and plan: History of COPD and an everyday smoker. On home oxygen History of chronic respiratory failure with hypercapnia Currently saturating well on nasal cannula will continue systemic steroids and bronchodilator support O2 supplementation Bipap at bedtime serial ABG as needed continue to monitor O2 sat, goal O2 sat: 89-92% GI ppx for high steroid therapy Qualifiers: Respiratory failure complication: hypoxia and hypercapnia Qualified Code(s) : J96.21 - Acute and chronic respiratory failure with hypoxia; J96.22 - Acute and chronic respiratory failure with hypercapnia (4) Acute exacerbation of chronic obstructive airways disease Current Visit: Yes Status: Acute Assessment and plan: Plan as listed above (5) Electrolyte abnormality Current Visit: Yes Status: Resolved Assessment and plan: continue to monitor electrolytes and replace as needed (6) Afib Current Visit: Yes Status: Chronic Assessment and plan: Reported history of Afib but not on any rate control medications Currently rate controlled and in sinus rhythm Holding anticoagulation due to GI bleed continue to closely monitor Add BB if needed for rate control Qualifiers: Atrial fibrillation type: paroxysmal Qualified Code(s): I48.0 - Paroxysmal atrial fibrillation (7) Tobacco abuse Current Visit: Yes Status: Acute Assessment and plan: Smoking cessation counseling provided patient not ready to quit at this time refused nicotine replacement therapy (8) DVT prophylaxis Current Visit: Yes Status: Acute Assessment and plan: IPCD - Subjective Interval history: Patient is a 56y/o female who was admitted to the ICU for acute respiratory distress and Upper GI bleed. Patient was transferred to on 10/07/16. Patient seen and examined at bedside. Resting in bed. Denies any episodes of hemetemesis since hospitalization. Breathing comfortably on nasal cannula. Denies any discomfort at this time. Drop in H&H noted but no acute bleeding reported. Will closely monitor Awaiting GI follow up. patient will need EGD, message left with Dr. Anthony's office for EGD in am. Will keep patient NPO after midnight. - Constitutional Vitals: Temp Pulse Resp BP Pulse Ox 98.3 F 85 20 113/56 93 L 10/08/16 04:41 10/08/16 05:49 10/08/16 05:49 10/08/16 04:41 10/08/16 05:49 General appearance: Present: A&O X 3, no acute distress, answers questions appropriately - Head Head exam: Present: atraumatic, normocephalic - Eye Eye exam: Present: conjuntiva pink, sclera anicteric - Respiratory Respiratory exam: Present: CTAB. Absent: respiratory distress, wheezes - Cardiovascular Cardiovascular exam: Present: RRR, +S1, +S2 - GI/Abdominal GI/Abdominal exam: Present: normal bowel sounds, soft. Absent: distended, tenderness - Extremities Exam Extremities exam: Present: warm, radial pulses palpable and symetrical. Absent : calf tenderness, pedal edema - Neurological Exam Neurological exam: Present: alert, oriented X3 - Psychiatric Psychiatric exam: Present: normal affect, normal mood Internal Medicine: Result - Labs CBC & Chem 7: 10/08/16 04:40 10/08/16 04:40 Labs: Short CBC 10/08/16 Range/Units 04:40 WBC 10.7 (4.3-11.1) K/mcL Hgb 7.9 L (11.5-15.4) g/dL Hct 25.8 L (35.3-44.9) % Plt Count 279 (140-400) K/mcL Neutrophils # 9.7 H (1.6-8.9) K/mcL BMP 10/08/16 04:40 Sodium 138 Potassium 3.7 Chloride 92 L Carbon Dioxide 37 H BUN 12 Creatinine 0.51 L Glucose 132 H Calcium 8.2 L - ABG Interpretation ABG results: ABG ABG pH 7.49 pH Units (7.32-7.45) H 10/06/16 11:20 ABG pCO2 68 mmHg (35-45) H 10/06/16 11:20 ABG pO2 58 mmHg (85-104) L 10/06/16 11:20 ABG O2 Saturation 92 % (95-98) L 10/06/16 11:20 PT/INR, D-dimer PT 12.3 Seconds (9.4-12.1) H 10/06/16 10:40 - VTE Reasons for not Prescribing Prophylaxis: Not indicated-Anticoagulated or INR therapeutic Documentation of Mechanical Device: Intermittent pneumatic compression device Consult Discharge Plan - Plan Referrals: Larry Chanel MD [Primary Care Provider] -
[2016-10-08 18:42] LABS: Hematocrit 25.5 % (35.3-44.9); Hemoglobin 7.6 g/dL (11.5-15.4); Immature Granulocytes % 0.6 % (0-4); Immature Platelets 6.3 % (1.1-6.1); Lymphocytes # 0.5 K/mcL (0.6-4.6); Lymphocytes % 4.1 %; Mean Corpuscular HGB Conc 29.8 g/dL (31.6-35.5); Mean Corpuscular Hemoglobin 27.2 pg (28.0-33.3); Mean Corpuscular Volume 91.4 fL (83.0-100.0); Mean Platelet Volume 10.7 fL (9.4-12.4); Monocytes # 0.5 K/mcL (0.0-1.3); Monocytes % 4.2 %; Neutrophils # 9.9 K/mcL (1.6-8.9); Platelet Count 278 K/mcL (140-400); Red Blood Count 2.79 M/mcL (3.82-4.97); Red Cell Distribution Width 20.8 % (11.5-14.5); Segmented Neutrophils % 91.1 %
[2016-10-08 19:09] LABS: Hypochromasia Present (Not Present); Polychromasia 1+ (Not Present)
[2016-10-09] MEDS: Ipratropium/Albuterol Neb 3 ML IH SCH ×5 (03:55→19:33)
[2016-10-09 05:22] LABS: Hematocrit 25.1 % (35.3-44.9); Hemoglobin 7.5 g/dL (11.5-15.4); Immature Granulocytes % 0.9 % (0-4); Lymphocytes # 0.5 K/mcL (0.6-4.6); Lymphocytes % 5.7 %; Mean Corpuscular HGB Conc 29.9 g/dL (31.6-35.5); Mean Corpuscular Hemoglobin 27.5 pg (28.0-33.3); Mean Corpuscular Volume 91.9 fL (83.0-100.0); Mean Platelet Volume 10.9 fL (9.4-12.4); Monocytes # 0.4 K/mcL (0.0-1.3); Monocytes % 4.2 %; Neutrophils # 7.9 K/mcL (1.6-8.9); Platelet Count 278 K/mcL (140-400); Red Blood Count 2.73 M/mcL (3.82-4.97); Red Cell Distribution Width 20.9 % (11.5-14.5); Segmented Neutrophils % 89.2 %
[2016-10-09 05:39] LABS: BUN/Creatinine Ratio 21 (6-26); Blood Urea Nitrogen 10 mg/dL (7-20); Calcium 8.4 mg/dL (8.6-10.8); Chloride 93 mEq/L (98-109); Glucose 123 mg/dL (70-99); Magnesium 1.7 mg/dL (1.6-2.6); Osmolality,Calculated 292 (280-300); Phosphorous 3.6 mg/dL (2.3-4.7); Potassium 3.2 mEq/L (3.5-4.5); Sodium 141 mEq/L (136-145); eGFR For African Americans > 60 (> 60); eGFR For Non-African Americans > 60 (> 60)
[2016-10-09 05:49] LABS: Carbon Dioxide 41 mEq/L (19-29)
[2016-10-09] MEDS: MethylPREDNISolone 40 MG/ML VIAL IVP SCH ×2 (06:00→17:46)
[2016-10-09] MEDS: Pantoprazole 40 MG VIAL IVP SCH ×2 (07:29→21:16)
[2016-10-09] MEDS: DALIRESP 500 MCG PO SCH (07:29)
[2016-10-09] MEDS: Budesonide/Formoterol 160/4.5 MDI IH SCH ×2 (08:02→19:33)
--- NOTE | 2016-10-09 08:40 | Internal Med Progress Note ---
Date of Encounter: 10/09/16 Time of Encounter: 08:50 - Constitutional Vitals: Temp Pulse Resp BP Pulse Ox 98.2 F 73 16 100/53 92 L 10/09/16 07:26 10/09/16 07:26 10/09/16 08:05 10/09/16 07:26 10/09/16 08:05 General appearance: Present: A&O X 3, no acute distress, answers questions appropriately Internal Medicine: Result - Labs CBC & Chem 7: 10/09/16 05:10 10/09/16 05:10 Labs: Short CBC 10/08/16 10/09/16 Range/Units 18:28 05:10 WBC 10.9 8.8 (4.3-11.1) K/mcL Hgb 7.6 L 7.5 L (11.5-15.4) g/dL Hct 25.5 L 25.1 L (35.3-44.9) % Plt Count 278 278 (140-400) K/mcL Neutrophils # 9.9 H 7.9 (1.6-8.9) K/mcL BMP 10/09/16 05:10 Sodium 141 Potassium 3.2 L Chloride 93 L Carbon Dioxide 41 H* BUN 10 Creatinine 0.48 L Glucose 123 H Calcium 8.4 L - ABG Interpretation ABG results: ABG ABG pH 7.49 pH Units (7.32-7.45) H 10/06/16 11:20 ABG pCO2 68 mmHg (35-45) H 10/06/16 11:20 ABG pO2 58 mmHg (85-104) L 10/06/16 11:20 ABG O2 Saturation 92 % (95-98) L 10/06/16 11:20 PT/INR, D-dimer PT 12.3 Seconds (9.4-12.1) H 10/06/16 10:40 - VTE Reasons for not Prescribing Prophylaxis: Not indicated-Anticoagulated or INR therapeutic Documentation of Mechanical Device: Intermittent pneumatic compression device Consult Discharge Plan - Plan Referrals: Larry Chanel MD [Primary Care Provider] -
[2016-10-09] MEDS ORDERED: *HR* Propofol 200 MG/20 ML VIAL IVP ONE (10:49)
[2016-10-09] MEDS ORDERED: Lidocaine -MPF 2% 5 ML VIAL INFILT ONE (10:49)
--- NOTE | 2016-10-09 12:59 | Anesthesia Evaluation PreOp ---
Date of Encounter: 10/09/16 Time of Encounter: 12:57 - Past History Planned Operation: EGD Cardiac History: CA (multiple), HTN, Arrhythmia (hx chronic Afib), Cardiac Stent (x1 3 years ago), Other (anemia) Pulmonary History: Smoker, COPD (Severe COPD), Other (acute and Chronic Resp. Failure, Resp acidosis) ALARM SIGNAL OPERATOR History: Denies Any Significant HX Other Medical History: Other (Hematemasis) Anesthesia History: No Prior Anesthetic Complications : No Alcohol Use: none Drug use: none Medications and Allergies Atorvastatin Calcium [Lipitor] 80 mg PO DAILY 04/28/15 [History] Budesonide/Formoterol 160/4.5 [Symbicort] 2 puff IH BIDR 04/28/15 [History] Ticagrelor [Brilinta] 90 mg PO BID 04/28/15 [History] Rivaroxaban [Xarelto] 15 mg PO DAILY 08/29/15 [History] Roflumilast [Daliresp] 500 mcg PO DAILY 08/29/15 [History] Albuterol Sulfate [Ventolin Hfa] 1 puff IH BID 08/24/16 [History] Calcium Carbonate [Calcium] 600 mg PO BID 09/24/16 [History] Guaifenesin [Mucinex] 600 mg PO BID 09/24/16 [History] Phos-NaK [Neutra-Phos] 1 each PO DAILY 09/24/16 [History] Ipratropium/Albuterol Neb [Duoneb] 3 ml IH Q4HR 10/06/16 [History] Allergies codeine Allergy (Verified 10/06/16 14:34) Hives - Meds/Allergy Pre-op Review Medications Reviewed: Yes Allergies Reviewed: Yes Beta Blockers on Current Med List: No Anesthesia Results - Labs 10/09/16 05:10 10/09/16 05:10 Echo 06/11/14 EF - 45% Apical inf and mid inf wall hypokinetic Mod diastolic dysfunction - Imaging EKG: image reviewed (ST, short SD interval, occasional premature ectopic complexes) Anesthesia Exam O2 Sat Weight 48.8 kg O2 Sat by Pulse Oximetry 98 O2 Sat by Pulse Oximetry 95 O2 Sat by Pulse Oximetry 92 O2 Sat by Pulse Oximetry 96 O2 Sat by Pulse Oximetry 97 O2 Sat by Pulse Oximetry 100 O2 Sat by Pulse Oximetry 95 O2 Sat by Pulse Oximetry 95 O2 Sat by Pulse Oximetry 98 O2 Sat by Pulse Oximetry 95 O2 Sat by Pulse Oximetry 95 O2 Sat by Pulse Oximetry 93 O2 Sat by Pulse Oximetry 98 O2 Sat by Pulse Oximetry 99 Vital Signs Resp Pulse Ox 22 100 10/05/16 23:30 10/05/16 23:30 Vital Signs/O2 Sat, Most Current Temp Pulse Resp BP Pulse Ox 98.3 F 83 16 102/55 98 10/09/16 11:17 10/09/16 11:20 10/09/16 11:17 10/09/16 11:17 10/09/16 11:17 Height: 5'3'' Weight: 107# NPO (# of Hours): > 8 hrs Pain Scale: 0 Pain Scale Used: Numeric (1 - 10) - HEENT Pupil (Motor): Pupils equal, EOMI - ALARM SIGNAL OPERATOR LOC: Oriented ALARM SIGNAL OPERATOR Motor: Normal RUE, Normal LUE, Normal RLE, Normal LLE, Normal Face ALARM SIGNAL OPERATOR Sensory: Normal: RUE, LUE, RLE, LLE, Face - Cardiac Rhythm: Regular Murmur: None JVD: No Carotid Bruit: No - Pulmonary Breath Sounds: bilateral Clear Respiratory Effort: Symmetrical Anesthesia Assess/Plan ASA Score: 4 Modified Elmore Scale for Level of Consciousness: Cooperative, oriented, and tranquil Anesthetic Plan: MAC Autologous Blood: Yes Monitoring Plan: Standard Monitors Recovery Plan: Other
--- NOTE | 2016-10-09 13:40 | Electrocardiograph Report ---
[place] [id number] Test Date: 2016-10-06 Pat Name: Tatum De Oliveira Department: 109 Room: 2N05 Gender: F [employer] Tester: : [id number] Requested By: Gavino Lancaster Order Number: [id number] Reading MD: Félix Chavez MD Measurements Intervals [place] Rate: 105 P: 72 [place]: 126 QRS: 81 QRSD: 86 T: 75 QT: 332 QTc: 393 Interpretive Statements SINUS TACHYCARDIA WITH OCCASIONAL SUPRAVENTRICULAR PREMATURE COMPLEXES Poor R wave progression Electronically Signed On 10-09-2016 13:38:55 EDT by Félix Chavez MD
--- NOTE | 2016-10-09 14:04 | Anesthesia Evaluation Post Op ---
Date of Encounter: 10/09/16 Time of Encounter: 14:02 - Vital Signs Vital Signs: 113/65, HR 82, RR18, SpO2 95% - Lungs Lungs: Rhonchi - Airway Airway: Non-obstructed - Cardiovascular Regular Rate - Mental Status Mental Status: Alert & Oriented, Answers Appropriately - Pain Pain Scale: 0 Pain Scale used: Numeric (1 - 10) - Nausea Vomiting Nausea Vomiting: Not Present - Hydration Hydration: NPO, Has not voided - Discharge PostOp Status: Transfer Patient to floor
[2016-10-10] MEDS: Ipratropium/Albuterol Neb 3 ML IH SCH ×7 (00:02→22:57)
[2016-10-10] MEDS: MethylPREDNISolone 40 MG/ML VIAL IVP SCH (05:00)
[2016-10-10 05:05] LABS: Hematocrit 25.5 % (35.3-44.9); Hemoglobin 7.4 g/dL (11.5-15.4); Immature Granulocytes % 0.9 % (0-4); Lymphocytes # 0.7 K/mcL (0.6-4.6); Lymphocytes % 8.8 %; Mean Corpuscular Hemoglobin 27.4 pg (28.0-33.3); Mean Corpuscular Volume 94.4 fL (83.0-100.0); Monocytes # 0.4 K/mcL (0.0-1.3); Monocytes % 5.2 %; Neutrophils # 6.7 K/mcL (1.6-8.9); Platelet Count 312 K/mcL (140-400); Red Cell Distribution Width 20.8 % (11.5-14.5); Segmented Neutrophils % 85.1 %
[2016-10-10 05:16] LABS: BUN/Creatinine Ratio 31 (6-26); Blood Urea Nitrogen 16 mg/dL (7-20); Calcium 8.3 mg/dL (8.6-10.8); Carbon Dioxide 39 mEq/L (19-29); Chloride 98 mEq/L (98-109); Glucose 116 mg/dL (70-99); Magnesium 1.5 mg/dL (1.6-2.6); Osmolality,Calculated 296 (280-300); Phosphorous 3.5 mg/dL (2.3-4.7); Sodium 142 mEq/L (136-145); eGFR For African Americans > 60 (> 60); eGFR For Non-African Americans > 60 (> 60)
[2016-10-10] MEDS: Budesonide/Formoterol 160/4.5 MDI IH SCH ×2 (08:03→20:40)
[2016-10-10] MEDS ORDERED: Magnesium Sulfate 2 GM in D5% in Water 100 ML IVPB ONE (08:31)
--- NOTE | 2016-10-10 08:47 | Internal Med Progress Note ---
Date of Encounter: 10/10/16 Time of Encounter: 08:43 - Assessment and plan (1) Anemia Current Visit: Yes Status: Chronic Assessment and plan: Review of previous lab values show that patient has had hemoglobin at around 8 for the last few months and is noted to be on ferrous sulfate supplements. Iron profile from August 2016 shows extremely low iron stores. Continue to monitor hemoglobin as it is noted to be dropping during this hospitalization with goal to transfuse if hemoglobin is less than 7. Qualifiers: Anemia type: iron deficiency Iron deficiency anemia type: unspecified iron deficiency Qualified Code(s): D50.9 - Iron deficiency anemia, unspecified (2) Upper GI bleed Current Visit: Yes Status: Suspected Assessment and plan: Also patient presented with reported hematemesis, EGD from yesterday showed no evidence of active bleeding/gastritis/peptic ulcers. Follow-up biopsies as outpatient. Change PPI to oral omeprazole. Continue diet as tolerated. Continue to hold anticoagulation until hemoglobin stabilizes. (3) Acute exacerbation of chronic obstructive airways disease Current Visit: Yes Status: Acute Assessment and plan: Improving. Continue bronchodilators. Oxygen requirements currently at baseline , at 4 L/m via nasal cannula. Change steroids to oral prednisone 40 mg daily. Continue home medications. (4) Hypertension Current Visit: Yes Status: Chronic Qualifiers: Hypertension type: essential hypertension Qualified Code(s): I10 - Essential (primary) hypertension (5) Nicotine dependence Current Visit: Yes Status: Chronic Assessment and plan: Continue nicotine transdermal patch. Patient is not motivated to stop smoking at this time. Qualifiers: Nicotine product type: cigarettes Substance use status: other nicotine- induced disorder Qualified Code(s): F17.218 - Nicotine dependence, cigarettes , with other nicotine-induced disorders (6) Respiratory acidosis Current Visit: Yes Status: Resolved (7) Afib Current Visit: Yes Status: Chronic Assessment and plan: Rate controlled. Noted to be on long-term anticoagulation with Xarelto, which is currently on hold due to acute on chronic anemia. Will restart tomorrow if hemoglobin stabilizes. Qualifiers: Atrial fibrillation type: paroxysmal Qualified Code(s): I48.0 - Paroxysmal atrial fibrillation (8) CAD (coronary artery disease) Current Visit: Yes Status: Chronic Assessment and plan: Patient reportedly is on aspirin and Brilinta for the last 3 years, which will be stopped at this time. Continue remaining home medications. Qualifiers: Coronary Disease-Associated Artery/Lesion type: [place] artery [place] vs. transplanted heart: [place] heart Associated angina: without angina Qualified Code(s): I25.10 - Atherosclerotic heart disease of [place] coronary artery without angina pectoris - Subjective Interval history: Reports feeling better. No vomiting or diarrhea. No hematemesis, hematochezia or melena. No chest pain or shortness of breath. - Constitutional Vitals: Temp Pulse Resp BP Pulse Ox 98 F 79 16 100/53 99 10/10/16 07:51 10/10/16 07:51 10/10/16 08:03 10/10/16 07:51 10/10/16 08:03 General appearance: Present: cachectic, A&O X 3, answers questions appropriately - Respiratory Respiratory exam: Present: decreased breath sounds (Decreased air entry bilaterally, no active wheezing or rhonchi). Absent: accessory muscle use, rales, rhonchi, wheezes - Cardiovascular Cardiovascular exam: Present: RRR, +S1, +S2. Absent: diastolic murmur, gallop, rubs, systolic murmur - GI/Abdominal GI/Abdominal exam: Present: normal bowel sounds, soft, no peritoneal signs. Absent: distended, tenderness - Extremities Exam Extremities exam: Present: warm, radial pulses palpable and symetrical. Absent : calf tenderness, cyanotic, pedal edema Internal Medicine: Result - Labs CBC & Chem 7: 10/10/16 04:55 10/10/16 04:55 Labs: Short CBC 10/10/16 Range/Units 04:55 WBC 7.9 (4.3-11.1) K/mcL Hgb 7.4 L (11.5-15.4) g/dL Hct 25.5 L (35.3-44.9) % Plt Count 312 (140-400) K/mcL Neutrophils # 6.7 (1.6-8.9) K/mcL BMP 10/10/16 04:55 Sodium 142 Potassium 4.0 Chloride 98 Carbon Dioxide 39 H BUN 16 Creatinine 0.52 L Glucose 116 H Calcium 8.3 L - ABG Interpretation ABG results: ABG ABG pH 7.49 pH Units (7.32-7.45) H 10/06/16 11:20 ABG pCO2 68 mmHg (35-45) H 10/06/16 11:20 ABG pO2 58 mmHg (85-104) L 10/06/16 11:20 ABG O2 Saturation 92 % (95-98) L 10/06/16 11:20 PT/INR, D-dimer PT 12.3 Seconds (9.4-12.1) H 10/06/16 10:40 - VTE Reasons for not Prescribing Prophylaxis: Not indicated-Anticoagulated or INR therapeutic Documentation of Mechanical Device: Intermittent pneumatic compression device Consult Discharge Plan - Plan Referrals: Larry Chanel MD [Primary Care Provider] -
[2016-10-10] MEDS: DALIRESP 500 MCG PO SCH (08:48)
[2016-10-10] MEDS: predniSONE 20 MG TABLET PO SCH (08:50)
[2016-10-11] MEDS: Ipratropium/Albuterol Neb 3 ML IH SCH ×6 (03:47→23:16)
[2016-10-11 04:56] LABS: Basophils % 0.1 %; Eosinophils % 0.1 %; Hemoglobin 7.8 g/dL (11.5-15.4); Immature Granulocytes % 2.2 % (0-4); Nucleated Red Blood Cells 0.4 /100 WBC (0)
[2016-10-11 04:58] LABS: Hematocrit 27.3 % (35.3-44.9); Lymphocytes % 13.1 %; Mean Corpuscular HGB Conc 28.6 g/dL (31.6-35.5); Mean Corpuscular Hemoglobin 27.7 pg (28.0-33.3); Mean Corpuscular Volume 96.8 fL (83.0-100.0); Mean Platelet Volume 11.1 fL (9.4-12.4); Monocytes # 0.7 K/mcL (0.0-1.3); Neutrophils # 5.5 K/mcL (1.6-8.9); Platelet Count 348 K/mcL (140-400); Red Blood Count 2.82 M/mcL (3.82-4.97); Red Cell Distribution Width 20.8 % (11.5-14.5); Segmented Neutrophils % 75.5 %
[2016-10-11 06:02] LABS: Anisocytosis 2+ (Not Present); Hypochromasia Present (Not Present); Macrocytosis Present (Not Present); Microcytosis Present (Not Present); Platelet Estimate Normal (Normal); Polychromasia 1+ (Not Present); Reactive Lymphocytes Present (Not Present)
[2016-10-11] MEDS: Budesonide/Formoterol 160/4.5 MDI IH SCH ×2 (07:44→20:08)
[2016-10-11] MEDS: predniSONE 20 MG TABLET PO SCH (08:24)
[2016-10-11] MEDS: DALIRESP 500 MCG PO SCH (08:25)
--- NOTE | 2016-10-11 12:44 | Discharge Summary ---
Date of Encounter: 10/11/16 Time of Encounter: 08:45 - Discharge Diagnosis (1) Anemia Priority: Secondary Status: Chronic Qualifiers: Anemia type: iron deficiency Iron deficiency anemia type: unspecified iron deficiency Qualified Code(s): D50.9 - Iron deficiency anemia, unspecified (2) Upper GI bleed Priority: Primary Status: Ruled-out (3) Acute exacerbation of chronic obstructive airways disease Priority: Primary Status: Acute (4) Hypertension Priority: Secondary Status: Chronic Qualifiers: Hypertension type: essential hypertension Qualified Code(s): I10 - Essential (primary) hypertension (5) Nicotine dependence Priority: Secondary Status: Chronic Qualifiers: Nicotine product type: cigarettes Substance use status: other nicotine- induced disorder Qualified Code(s): F17.218 - Nicotine dependence, cigarettes , with other nicotine-induced disorders (6) Respiratory acidosis Priority: Primary Status: Resolved (7) Afib Priority: Secondary Status: Chronic Qualifiers: Atrial fibrillation type: paroxysmal Qualified Code(s): I48.0 - Paroxysmal atrial fibrillation (8) CAD (coronary artery disease) Priority: Secondary Status: Chronic Qualifiers: Coronary Disease-Associated Artery/Lesion type: [place] artery [place] vs. transplanted heart: [place] heart Associated angina: without angina Qualified Code(s): I25.10 - Atherosclerotic heart disease of [place] coronary artery without angina pectoris - Discharge Medications Prescriptions: PredniSONE 40 mg PO DAILY #10 tablet Home Medications: Atorvastatin Calcium [Lipitor] 80 mg PO DAILY 04/28/15 [History] Budesonide/Formoterol 160/4.5 [Symbicort] 2 puff IH BIDR 04/28/15 [History] Rivaroxaban [Xarelto] 15 mg PO DAILY 08/29/15 [History] Roflumilast [Daliresp] 500 mcg PO DAILY 08/29/15 [History] Albuterol Sulfate [Ventolin Hfa] 1 puff IH BID 08/24/16 [History] Calcium Carbonate [Calcium] 600 mg PO BID 09/24/16 [History] Guaifenesin [Mucinex] 600 mg PO BID 09/24/16 [History] Phos-NaK [Neutra-Phos] 1 each PO DAILY 09/24/16 [History] Ipratropium/Albuterol Neb [Duoneb] 3 ml IH Q4HR 10/06/16 [History] PredniSONE 40 mg PO DAILY #10 tablet 10/11/16 [Rx] Allergies/Adverse Reactions: Allergies codeine Allergy (Verified 10/06/16 14:34) Hives Date of admission: 10/06/16 00:07 Primary care physician: Larry Chanel MD Consults: 10/06/16 07:10 Consult to Gastroenterology [CONS] Routine Consulting Provider: Trinh Bautista Reason for Consult: Hematemesis Call Completed: No 10/06/16 09:28 Consult to Invasive Line Access Team [CONS] Routine Reason for Consult: poor access Line Type: EPIV 10/09/16 09:24 Consult to Occupational Therapy [CONS] Routine Comment: Evaluate, develop and implement POC Consult to Physical Therapy [CONS] Routine Comment: Evaluate, develop and implement POC Discharging clinician: Meche Carolina Anticipated date of discharge: 10/11/16 - Patient Status Disposition: Transfer SNF Condition: Fair Functional capacity at discharge: uses cane/walker Overall status at discharge: patient is progressing back to baseline - Discharge Instructions Follow Up With: Larry Chanel MD [Primary Care Provider] - - Diet and Activity Activity: as per physical therapy, wear oxygen at all times Diet: low fat, low cholesterol, low salt diet Hospital course: Ms. De Oliveira is a 56 year old female with the above medical problems, admitted with worsening shortness of breath with suspected coffee-ground emesis/upper GI bleed. She was noted to have respiratory acidosis with elevated PCO2 along with an acute exacerbation of COPD. She initially required noninvasive positive pressure ventilation along with IV steroids, bronchodilators and her respiratory status gradually improved. She is currently at her baseline oxygen requirement of 4 L/m nasal cannula oxygen and oral steroids. Blood cultures remain negative and sputum culture did grow pseudomonas, however questionable if this is colonization given her severe COPD. Patient has not been started on antibiotics until my evaluation, at which time she was doing well and so antibiotics were held. GI was consulted and she underwent EGD for upper GI bleed. EGD showed a 1 cm area of salmon-colored mucosa, suggestive of Francois's esophagitis but no evidence of active bleeding/gastritis/peptic ulcers. Physical and occupational therapy evaluation was done and patient is recommended to be placed in extended care facility for continued rehabilitation and she would benefit from just given her severe cardiopulmonary symptoms. She is medically stable for discharge today. Time spent discussing smoking cessation with patient: 3 to 10 minutes - Time Spent with Patient Total time spent providing and/or coordinating discharge services: Greater than 30 minutes (50 min) - Constitutional Vitals: Temp Pulse Resp BP Pulse Ox 98.3 F 88 18 94/55 95 10/11/16 11:55 10/11/16 11:55 10/11/16 11:55 10/11/16 11:55 10/11/16 11:55 General appearance: Present: cachectic, A&O X 3, answers questions appropriately - Respiratory Respiratory exam: Present: decreased breath sounds (B/L), CTAB. Absent: accessory muscle use, rales, rhonchi, wheezes - Cardiovascular Cardiovascular exam: Present: RRR, +S1, +S2. Absent: diastolic murmur, gallop, rubs, systolic murmur - VTE Reasons for not Prescribing Prophylaxis: Not indicated-Anticoagulated or INR therapeutic Documentation of Mechanical Device: Intermittent pneumatic compression device
--- NOTE | 2016-10-11 12:46 | Physician Discharge Referral ---
ExtendedCare Referral Info Transfer To: Early Provider in Charge: Meche Carolnia Provider in Charge after Transfer: PCP Institutional Level of Care: Intermediate - MR - Diagnosis (1) Anemia Priority: Secondary Status: Chronic (2) Upper GI bleed Priority: Primary Status: Ruled-out (3) Acute exacerbation of chronic obstructive airways disease Priority: Primary Status: Acute (4) Hypertension Priority: Secondary Status: Chronic (5) Nicotine dependence Priority: Secondary Status: Chronic (6) Respiratory acidosis Priority: Primary Status: Resolved (7) Afib Priority: Secondary Status: Chronic (8) CAD (coronary artery disease) Priority: Secondary Status: Chronic Expected Duration of Placement: 3 weeks Prognosis: Fair Aware of Diagnosis: Patient Aware of Prognosis: Patient - Transfer Medications Prescriptions: PredniSONE 40 mg PO DAILY #10 tablet Home Medications: Atorvastatin Calcium [Lipitor] 80 mg PO DAILY 04/28/15 [History] Budesonide/Formoterol 160/4.5 [Symbicort] 2 puff IH BIDR 04/28/15 [History] Rivaroxaban [Xarelto] 15 mg PO DAILY 08/29/15 [History] Roflumilast [Daliresp] 500 mcg PO DAILY 08/29/15 [History] Albuterol Sulfate [Ventolin Hfa] 1 puff IH BID 08/24/16 [History] Calcium Carbonate [Calcium] 600 mg PO BID 09/24/16 [History] Guaifenesin [Mucinex] 600 mg PO BID 09/24/16 [History] Phos-NaK [Neutra-Phos] 1 each PO DAILY 09/24/16 [History] Ipratropium/Albuterol Neb [Duoneb] 3 ml IH Q4HR 10/06/16 [History] PredniSONE 40 mg PO DAILY #10 tablet 10/11/16 [Rx] Allergies/Adverse Reactions: Allergies codeine Allergy (Verified 10/06/16 14:34) Hives - Respiratory Orders Oxygen / L per min (4L/min) Smoking Cessation: Smoking cessation has been advised. For more information, call the [place] Tobacco Quit Line at 7-207-TXGG-NOW. - Advance Directives Code Status: Full Code - Mobility Orders Ambulate - Rehabiliation Orders Rehab Potential: Fair Rehab Orders: ROM Exercises, Evaluation for Physical Therapy, Evaluation for Occupational Therapy - Diet Orders Cardiac CERTIFICATION: I certify that the transfer of the above named patient to an Extended Care Facility is necessary for the continuing treatment of the diagnosis listed. The above information is true and accurate reflection of patient's current condition. Confidential - Redisclosure prohibited without a patient's written consent.
[2016-10-12] MEDS: Ipratropium/Albuterol Neb 3 ML IH SCH ×3 (05:26→11:08)
[2016-10-12] MEDS: Budesonide/Formoterol 160/4.5 MDI IH SCH (07:38)
[2016-10-12] MEDS: predniSONE 20 MG TABLET PO SCH (08:37)
--- NOTE | 2016-10-12 09:08 | Internal Med Progress Note ---
Date of Encounter: 10/12/16 Time of Encounter: 09:06 - Assessment and plan (1) Anemia Current Visit: Yes Status: Chronic Qualifiers: Anemia type: iron deficiency Iron deficiency anemia type: unspecified iron deficiency Qualified Code(s): D50.9 - Iron deficiency anemia, unspecified (2) Upper GI bleed Current Visit: Yes Status: Ruled-out (3) Acute exacerbation of chronic obstructive airways disease Current Visit: Yes Status: Acute Assessment and plan: Improving. Continue bronchodilators. Oxygen requirements currently at baseline , at 4 L/m via nasal cannula. Continue oral prednisone for 10 days. Continue home medications. Pending placement. Medically stable for discharge today. (4) Hypertension Current Visit: Yes Status: Chronic Assessment and plan: Blood pressure well controlled. Continue current medications. Qualifiers: Hypertension type: essential hypertension Qualified Code(s): I10 - Essential (primary) hypertension (5) Nicotine dependence Current Visit: Yes Status: Chronic Qualifiers: Nicotine product type: cigarettes Substance use status: other nicotine- induced disorder Qualified Code(s): F17.218 - Nicotine dependence, cigarettes , with other nicotine-induced disorders (6) Respiratory acidosis Current Visit: Yes Status: Resolved (7) Afib Current Visit: Yes Status: Chronic Qualifiers: Atrial fibrillation type: paroxysmal Qualified Code(s): I48.0 - Paroxysmal atrial fibrillation (8) CAD (coronary artery disease) Current Visit: Yes Status: Chronic Qualifiers: Coronary Disease-Associated Artery/Lesion type: [place] artery [place] vs. transplanted heart: [place] heart Associated angina: without angina Qualified Code(s): I25.10 - Atherosclerotic heart disease of [place] coronary artery without angina pectoris - Subjective Interval history: No new complaints. No chest pain or shortness of breath. Awaiting placement in rehabilitation. - Constitutional Vitals: Temp Pulse Resp BP Pulse Ox 98.5 F 79 16 95/53 99 10/12/16 00:05 10/12/16 07:50 10/12/16 07:50 10/12/16 07:50 10/12/16 07:50 General appearance: Present: cachectic, A&O X 3, answers questions appropriately - Respiratory Respiratory exam: Present: CTAB. Absent: accessory muscle use, rales, rhonchi, wheezes - Cardiovascular Cardiovascular exam: Present: RRR, +S1, +S2. Absent: diastolic murmur, gallop, rubs, systolic murmur Internal Medicine: Result - Labs CBC & Chem 7: 10/11/16 04:25 10/10/16 04:55 - ABG Interpretation ABG results: ABG ABG pH 7.49 pH Units (7.32-7.45) H 10/06/16 11:20 ABG pCO2 68 mmHg (35-45) H 10/06/16 11:20 ABG pO2 58 mmHg (85-104) L 10/06/16 11:20 ABG O2 Saturation 92 % (95-98) L 10/06/16 11:20 PT/INR, D-dimer PT 12.3 Seconds (9.4-12.1) H 10/06/16 10:40 - VTE Reasons for not Prescribing Prophylaxis: Not indicated-Anticoagulated or INR therapeutic Documentation of Mechanical Device: Intermittent pneumatic compression device Consult Discharge Plan - Plan Referrals: Larry Chanel MD [Primary Care Provider] - Prescriptions: PredniSONE 40 mg PO DAILY #10 tablet
[2016-10-12] MEDS: DALIRESP 500 MCG PO SCH (10:52)
[2016-10-12 11:58] VITALS: BP 104/61
== END 2016-10-12 12:25 | DRG 133 ==
LOC: ICNU → SUATTDRO 10-06 00:07 → 2NNU 10-06 15:52
PROVIDERS: ADMIT Hospitalist; ATTEND Internal Medicine
PROC: ENDOEBX (2016-10-09 13:00)

== ENCOUNTER 2017-06-20 01:44 | Inpatient (IN) ==
[2017-06-20] MEDS ORDERED: Ondansetron 4 MG/2 ML VIAL IVP PRN (03:43)
[2017-06-20] MEDS ORDERED: Naloxone 0.4 MG/ML INJ IVP PRN (03:43)
[2017-06-20] MEDS ORDERED: *HR* Morphine 2 MG/ML SYRINGE IVP PRN (03:43)
[2017-06-20] MEDS ORDERED: Acetaminophen 325 MG TABLET PO PRN (03:43)
[2017-06-20 04:18] LABS: ABG Base Excess 17 mEq/L (-2 to 3); ABG HCO3 48 mEq/L (21-27); ABG Oxygen Saturation 82 % (95-98); ABG PCO2 99 mmHg (35-45); ABG PO2 56 mmHg (85-104); ABG TCO2 51 mEq/L (20-26)
[2017-06-20] MEDS ORDERED: *HR* LORazepam 2 MG/ML VIAL IVP PRN (04:21)
--- NOTE | 2017-06-20 04:24 | Internal Med History&Physical ---
Date of Encounter: 06/20/17 Time of Encounter: 04:00 Assessment and Plan (1) Acute on chronic respiratory failure with hypoxia and hypercapnia Current visit: Yes Status: Acute Acute on chronic hypoxic and hypercapnic respiratory failure - secondary to acute exacerbation of end stage COPD, with acute encephalopathy likely due to CO2 narcosis Continue BiPAP 16/03 at 40% DuoNeb breathing treatment, Solu-Medrol, empiric IV Rocephin, Symbicort, Spiriva , O2 Chest x-ray - severe emphysema, no acute cardiopulmonary process Troponin - 0.14, cycle troponin EKG - sinus tachycardia, repeat in a.m. BNP - pending Pulmonology consult Palliative care consult as patient has been on hospice at the nursing facility - patient agrees with intubation and mechanical ventilation if required at this time Continuous pulse ox, cardiac telemetry, labs in a.m., monitor closely, guarded condition (2) CAD (coronary artery disease) Current visit: Yes Status: Chronic Coronary artery disease status post stent - no anginal symptoms at present Continue Lipitor, Xarelto Troponin - 0.14, cycle troponin EKG - sinus tachycardia BNP - pending Qualifiers: Coronary Disease-Associated Artery/Lesion type: [place] artery [place] vs. transplanted heart: [place] heart Associated angina: without angina Qualified Code(s): I25.10 - Atherosclerotic heart disease of [place] coronary artery without angina pectoris (3) Hypertension Current visit: No Status: Chronic Essential hypertension, controlled, monitor Qualifiers: Hypertension type: essential hypertension Qualified Code(s): I10 - Essential (primary) hypertension (4) Afib Current visit: Yes Status: Chronic Chronic A. fib, with tachycardia Continue anticoagulation with Xarelto Patient is not on any medication at home for rate control Qualifiers: Atrial fibrillation type: paroxysmal Qualified Code(s): I48.0 - Paroxysmal atrial fibrillation (5) DVT prophylaxis Current visit: Yes Status: Acute Continue dose of Xarelto Internal Medicine - H&P: HPI Chief complaint: Altered mental status Admitted From: Emergency Dept Plans for Post Hospital Care: Home History of present illness: Ms. De Oliveira is a 57 year old female with past medical history of end-stage COPD, atrial fibrillation, coronary artery disease, hyperlipidemia, hypertension, history of GI bleed, anxiety and depression. She presents as a transfer from [facility]. [facility] for altered mental status. Examined in the ICU. Patient is awake and alert. She is able to answer some questions. It is difficult to obtain history from her due to medical condition. She is able to verbalize and follows simple verbal commands. ER physician requested transfer due to COPD exacerbation and elevated troponin. Patient was initially found to be hypoxic on arrival to the ED. She was placed on BiPAP, and her sats had improved. Patient does have a history of end-stage COPD and has been on hospice at the nursing facility. She initially did not want intubation in the ED, but now states she wants everything to be done. Patient is a full code. She denies chest pain or palpitations. Patient does complain of shortness of breath, which seems to be improving. Patient does seem to be confused, which is likely due to hypercapnia. No family members present at the time of admission. No other pertinent history can be obtained at this time. Initial workup in the ED is significant for hypoxic hypercapnic respiratory failure. Patient also has severe emphysema seen on chest x-ray with no acute disease. Troponin is elevated. We will trend troponins. EKG shows sinus tachycardia with no acute changes. patient is being admitted for respiratory failure secondary to exacerbation of end-stage COPD. CODE STATUS full code. Past Med Surg Social Fam HX - Past Medical History Medical history: atrial fibrillation, COPD, coronary artery disease, GI bleed, hyperlipidemia, hypertension, myocardial infarction, other (History of encephalopathy, "cognitive communication deficit", anemia) Psychiatric history: anxiety, depression - Past Surgical History Surgical History: angioplasty/stent - Social History Smoking Status: Current every day smoker Smokeless Tobacco Status: No Alcohol use: none Drug use: none - Family History Father Living Status: Hx Family Cardiac Disorders: No Hx Family Respiratory Disorders: No Hx Family Cancer: Yes (Colon) Hx Family GI Disorders: No Hx Family Endocrine Disorder: No Hx Family Neuromuscular Disorders: No Hx Family Neurologic Disorders: No Hx Family HEENT Disorders: No Hx Family Autoimmune Disorders: No Mother Living Status: Hx Family Cardiac Disorders: Yes (bradycardia) Hx Family Respiratory Disorders: Yes (copd, emphysema) Hx Family Cancer: Yes (lung cancer) Hx Family GI Disorders: No Hx Family Endocrine Disorder: Yes (Diabetes) Hx Family Neuromuscular Disorders: No Hx Family Neurologic Disorders: No Hx Family HEENT Disorders: No Hx Family Autoimmune Disorders: No Internal Medicine - H&P: Meds Albuterol Sulfate 2.5 mg IH Q2H PRN 06/19/17 [History] Atorvastatin [Lipitor] 80 mg PO HS 06/19/17 [History] Fluticasone/Vilanterol [Breo Ellipta 100-25 Mcg INH] 1 each IH DAILY 06/19/17 [ History] Guaifenesin [Mucinex] 600 mg PO BID 06/19/17 [History] Haloperidol Lactate [Haldol] 2 mg SL Q2H PRN 06/19/17 [History] Hyoscyamine SL [Levsin SL] 0.125 mg SL Q2H PRN 06/19/17 [History] LORazepam [Lorazepam] 4 mg PO Q4H PRN 06/19/17 [History] Oxycodone HCl [Oxaydo] 5 mg PO Q4H PRN 06/19/17 [History] Promethazine HCl 25 mg PO Q6H PRN 06/19/17 [History] Promethazine HCl [Phenadoz] 25 mg RC Q6H PRN 06/19/17 [History] Rivaroxaban [Xarelto] 20 mg PO DAILY 06/19/17 [History] Tiotropium [Spiriva] 18 mcg IH DAILY 06/19/17 [History] Ventolin Hfa 1 puff IH Q6H PRN 06/19/17 [History] predniSONE [PredniSONE] 10 mg PO DAILY 06/19/17 [History] 3 Allergy/AdvReac Type Severity Reaction Status Date / Time codeine Allergy Hives Verified 10/06/16 14:34 All Systems PM: A 10-system review of systems was performed and is negative for pertinent findings except as documented above in the HPI. - Constitutional Constitutional: fatigue, weakness - Cardiovascular Cardiovascular ROS IM: dyspnea, orthopnea, no chest pain, no syncope - Respiratory Respiratory: cough, dyspnea - Gastrointestinal Gastrointestinal: no abdominal pain, no cramping, no loose stools, no vomiting - Neurological Neurological ROS: confusion, no convulsions - Constitutional Vitals: Temp Pulse Resp BP Pulse Ox 99.9 F H 114 34 103/67 88 06/20/17 03:43 06/20/17 03:54 06/20/17 03:43 06/20/17 03:43 06/20/17 03:43 General appearance: Present: cachectic, A&O X 1, mild distress, underweight Exam: Patient is awake and alert. Able to answer some questions. She is able to verbalize and follow simple verbal commands. Unable to obtain good history from her. - Head Head exam: Present: atraumatic - Eye Eye exam: Present: EOMI - ENT ENT exam: Present: mucous membranes dry - Respiratory Respiratory exam: Present: accessory muscle use, respiratory distress, tachypnea Additional comments: Bilateral diminished breath sounds. - Cardiovascular Cardiovascular exam: Present: +S1, +S2, tachycardia - GI/Abdominal GI/Abdominal exam: Present: soft. Absent: distended, firm, guarding, tenderness - Extremities Exam Extremities exam: Present: radial pulses palpable and symmetrical. Absent: calf tenderness, cyanotic, pedal edema - Neurological Exam Neurological exam: Present: no focal deficits. Absent: facial droop Additional comments: Awake and alert. Able to answer some questions. Follows simple verbal commands and able to verbalize. No focal neurological deficits. Internal Med - H&P Results - ABG Interpretation ABG results: 06/20/17 04:12 ABG pH 7.30 L D ABG pCO2 99 H* D ABG pO2 56 L ABG HCO3 48 H ABG Total CO2 51 H ABG O2 Saturation 82 L ABG Base Excess 17 H
[2017-06-20] MEDS: Ipratropium/Albuterol Neb 3 ML IH SCH ×5 (04:25→19:59)
[2017-06-20] MEDS: cefTRIAXone 1,000 MG in Water for inj. (sterile) 10 ML IVP SCH (05:17)
[2017-06-20] MEDS: Famotidine 20 MG/2 ML VIAL IVP SCH ×2 (05:18→18:11)
[2017-06-20 05:58] LABS: Hemoglobin 9.9 g/dL (11.5-15.4)
[2017-06-20 05:59] LABS: Hematocrit 34.8 % (35.3-44.9); Immature Granulocytes % 0.5 % (0-4); Lymphocytes # 0.3 K/mcL (0.6-4.6); Lymphocytes % 6.6 %; Mean Corpuscular HGB Conc 28.4 g/dL (31.6-35.5); Mean Corpuscular Hemoglobin 28.3 pg (28.0-33.3); Mean Corpuscular Volume 99.4 fL (83.0-100.0); Mean Platelet Volume 10.6 fL (9.4-12.4); Monocytes # 0.1 K/mcL (0.0-1.3); Monocytes % 2.2 %; Neutrophils # 3.7 K/mcL (1.6-8.9); Platelet Count 156 K/mcL (140-400); Segmented Neutrophils % 90.7 %
[2017-06-20] MEDS ORDERED: *HR* Heparin 5,000 UNIT/ML VIAL SQ SCH (06:00)
[2017-06-20 06:15] LABS: BUN/Creatinine Ratio 40 (6-26); Blood Urea Nitrogen 19 mg/dL (7-20); Calcium 8.7 mg/dL (8.6-10.8); Chloride 91 mEq/L (98-109); Glucose 126 mg/dL (70-99); Magnesium 1.5 mg/dL (1.6-2.6); Osmolality,Calculated 292 (280-300); Potassium 4.7 mEq/L (3.5-4.5); Sodium 139 mEq/L (136-145); eGFR For African Americans > 60 (> 60); eGFR For Non-African Americans > 60 (> 60)
[2017-06-20 06:22] LABS: Carbon Dioxide 42 mEq/L (19-29)
[2017-06-20 06:23] LABS: Platelet Estimate Normal (Normal)
[2017-06-20 06:25] LABS: Anisocytosis 1+ (Not Present); Hypochromasia Present (Not Present)
[2017-06-20] MEDS: methylPREDNISolone 125 MG/2 ML VIAL IVP SCH ×2 (07:53→16:15)
[2017-06-20] MEDS ORDERED: *HR* Rivaroxaban 10 MG TABLET PO SCH (09:00)
[2017-06-20] MEDS ORDERED: Tiotropium 18 MCG inhalation IH SCH (09:00)
--- NOTE | 2017-06-20 09:01 | Pulmonology Consult Note ---
<Lucien Garcia M - Last Filed: 06/20/17 11:23> Date of Encounter: 06/20/17 Medications and Allergies Albuterol Sulfate [Ventolin Hfa] 1 puff IH Q6H PRN 06/19/17 [History] Atorvastatin [Lipitor] 80 mg PO HS 06/19/17 [History] Fluticasone/Vilanterol [Breo Ellipta 100-25 Mcg INH] 1 each IH DAILY 06/19/17 [ History] Guaifenesin [Mucinex] 600 mg PO BID 06/19/17 [History] Hyoscyamine SL [Levsin SL] 0.125 mg SL Q2H PRN 06/19/17 [History] Oxycodone HCl [Oxaydo] 5 mg PO Q4H PRN 06/19/17 [History] Promethazine HCl 25 mg PO Q6H PRN 06/19/17 [History] Promethazine HCl [Phenadoz] 25 mg RC Q6H PRN 06/19/17 [History] Rivaroxaban [Xarelto] 20 mg PO DAILY 06/19/17 [History] Tiotropium [Spiriva] 18 mcg IH DAILY 06/19/17 [History] predniSONE [PredniSONE] 10 mg PO DAILY 06/19/17 [History] Acetaminophen [Tylenol 650mg SUPP] 650 mg RC Q4H PRN 06/20/17 [History] Ibuprofen [Motrin] 400 mg PO Q6HR PRN 06/20/17 [History] LORazepam [Ativan] 0.5 mg PO Q4HR PRN 06/20/17 [History] Lactobacillus Acidophilus [Acidophilus] 1 cap PO BID 06/20/17 [History] 3 Allergy/AdvReac Type Severity Reaction Status Date / Time codeine Allergy Hives Verified 06/20/17 08:23 All Systems: A 10-system review of systems was performed and is negative for pertinent findings except as documented above in the HPI. Physical Examination Vital Signs: Vital Signs, Last 4 Hours Temp Pulse Resp BP Pulse Ox 06/20/17 10:00 97 20 98/58 98 06/20/17 09:00 106 16 116/67 97 06/20/17 08:00 101 16 122/66 96 06/20/17 07:45 107 06/20/17 07:40 20 96 06/20/17 07:38 97.8 F Results - Laboratory Findings CBC and BMP: 06/20/17 05:51 06/20/17 05:51 ABG ABG pH 7.30 pH Units (7.32-7.45) L D 06/20/17 04:12 ABG pCO2 99 mmHg (35-45) H* D 06/20/17 04:12 ABG pO2 56 mmHg (85-104) L 06/20/17 04:12 ABG O2 Saturation 82 % (95-98) L 06/20/17 04:12 Abnormal lab findings: Abnormal lab results WBC 4.1 K/mcL (4.3-11.1) L 06/20/17 05:51 RBC 3.50 M/mcL (3.82-4.97) L 06/20/17 05:51 Hgb 9.9 g/dL (11.5-15.4) L 06/20/17 05:51 Hct 34.8 % (35.3-44.9) L 06/20/17 05:51 MCHC 28.4 g/dL (31.6-35.5) L 06/20/17 05:51 Lymphocytes # 0.3 K/mcL (0.6-4.6) L 06/20/17 05:51 Hypochromasia Present (Not Present) A 06/20/17 05:51 Anisocytosis 1+ (Not Present) A 06/20/17 05:51 ABG pH 7.30 pH Units (7.32-7.45) L D 06/20/17 04:12 ABG pCO2 99 mmHg (35-45) H* D 06/20/17 04:12 ABG pO2 56 mmHg (85-104) L 06/20/17 04:12 ABG HCO3 48 mEq/L (21-27) H 06/20/17 04:12 ABG Total CO2 51 mEq/L (20-26) H 06/20/17 04:12 ABG O2 Saturation 82 % (95-98) L 06/20/17 04:12 ABG Base Excess 17 mEq/L (-2 to 3) H 06/20/17 04:12 Potassium 4.7 mEq/L (3.5-4.5) H 06/20/17 05:51 Chloride 91 mEq/L (98-109) L 06/20/17 05:51 Carbon Dioxide 42 mEq/L (19-29) H* 06/20/17 05:51 Creatinine 0.48 mg/dL (0.57-1.11) L 06/20/17 05:51 BUN/Creatinine Ratio 40 (6-26) H 06/20/17 05:51 Glucose 126 mg/dL (70-99) H 06/20/17 05:51 POC Glucose 117 (58-89) H 06/20/17 03:34 Magnesium 1.5 mg/dL (1.6-2.6) L 06/20/17 05:51 Troponin I 0.20 ng/mL (0-0.03) H* 06/20/17 09:31 B-Natriuretic Peptide 257 pg/mL (0-100) H 06/20/17 05:51 - Clinical Findings Intake & Output: Intake & Output 06/19/17 06/20/17 06/20/17 23:59 07:59 15:59 Intake Total 60 / 60 Output Total 0 / 0 Balance 60 / 60 Weight 52.6 kg Consult Discharge Plan - Plan Referrals: Larry Chanel MD [Primary Care Provider] - - Attending Attestation I examined this patient and my medical decision-making was reviewed with the Resident Physician. I agree with the documented findings, disposition and treatment plan as described except to the extent set forth below. Patient seen and examined. Labs, radiology, chart personally reviewed. Agree with resident's history and physical, assessment, plan with following comments: [employer]: Patient follows commands, Pulmonary: Acceptable oxygenation and ventilation. Patient with advanced lung disease and due to her poor prognosis palliative was consulted. She is compensating more appropriately on noninvasive ventilation and to continue on and off as tolerated. Treat patient for COPD exacerbation Cardiovascular: stable GI: Nutrition per dietary and GI prophylaxis per routine Heme: DVT prophylaxis per routine ID: Continue antibiotics and plan to de-escalation Renal; urine out put and renal funtion reviewed Endorcine: blood glucose is monitored Lines: all lines checked and no evidence of infections Skin: skin care to prevent pressure ulcers per nursing routine care Overall prognosis is poor <Clarence Perales - Last Filed: 06/20/17 13:59> Date of Encounter: 06/20/17 Time of Encounter: 08:45 Assessment and Plan (1) Acute on chronic respiratory failure with hypoxia and hypercapnia Current Visit: Yes Status: Acute - Respiratory distress with first ABG showing pH 7.19, pCO2 123, pO2 88, HCO3 47. - Likely secondary to acute exacerbation of end-stage COPD. - Patient's respiratory status improves with BiPAP use as her latest ABG showing pH 7.30, pCO2 99, pO2 56, HCO3 48 on BiPAP. - Patient was weaned off from BiPAP and seems to tolerate 4L NC well this morning. - Continue Solu-Medrol, Symbicort, Duoneb, antibiotic and supplemental oxygen for AE COPD. - Continue to monitor patient's respiratory status closely. Possible transfer out of ICU once patient's goal of care is clarified. (2) Acute exacerbation of chronic obstructive airways disease Current Visit: No Status: Acute - Acute exacerbation of end-stage COPD - Continue Solu-Medrol, Symbicort, Duoneb, antibiotic and supplemental oxygen. (3) Acute encephalopathy Current Visit: Yes Status: Resolved - Patient was initially sent to [facility] ED for altered mental status. - Likely secondary to hypercapnia. - UA does not indicate UTI. UDS negative. - Improves as patient is aware and orient this morning. - Continue to monitor. (4) Elevated troponin Current Visit: Yes Status: Acute - Elevated troponin 0.14 initially, peaked at 0.23 but then stable at 0.20. - Patient reports no chest pain/discomfort. - No significant ischemic change on EKG. - Likely demand ischemia in the setting of acute respiratory failure, anemia and A-fib. - Continue to monitor. (5) Afib Current Visit: Yes Status: Chronic - Rate of 90s at this time. - Continue Xarelto. Qualifiers: Atrial fibrillation type: paroxysmal Qualified Code(s): I48.0 - Paroxysmal atrial fibrillation (6) Goals of care, counseling/discussion Current Visit: Yes Status: Acute - Patient was on [facility] for end-stage COPD. - Patient states she is okay to have intubation if it's medically necessary. - Palliative care is consulted and appreciate assistance regarding patient's goals of care at this time. (7) CAD (coronary artery disease) Current Visit: Yes Status: Chronic - Continue Lipitor and Xarelto. Qualifiers: Coronary Disease-Associated Artery/Lesion type: [place] artery [place] vs. transplanted heart: northway heart Associated angina: without angina Qualified Code(s): I25.10 - Atherosclerotic heart disease of [place] coronary artery without angina pectoris (8) DVT prophylaxis Current Visit: Yes Status: Acute - Continue Xarelto. History of Present Illness Consult date: 06/20/17 Requesting physician: Deniz Lewis Reason for consult: COPD (End-stage COPD) Chief complaint: Altered mental status and respiratory failure History of present illness: Ms. De Oliveira is a 57 yo female with PMH of A-fib, CAD, HTN, HLD and end-stage COPD , for which patient was on [facility]. Patient was sent from SNF to [facility] ED for altered mental status. In ED, patient was noted to have O2 sat drop to 86 % on 4L NC and ABG showed pH 7.19, pCO2 123, pO2 88, HCO3 47. Patient was started on BiPAP, steroid and antibiotic and then admitted to [facility] ICU for acute on chronic respiratory failure with hypoxia and hypercapnia. Critical care /pulmonology was consulted for end stage COPD. Patient was seen and examined this morning. Patient was weaned off from BiPAP to 4L NC which is her home oxygen dose. Patient still has some cough but reports breathing okay. Patient denies chest pain, abdomina pain, fever, chills. Past Med Surg Social Fam HX - Past Medical History Medical history: atrial fibrillation, COPD, coronary artery disease, GI bleed, hyperlipidemia, hypertension, myocardial infarction, other (History of encephalopathy, "cognitive communication deficit", anemia) Psychiatric history: anxiety, depression - Past Surgical History Surgical History: angioplasty/stent - Social History Smoking Status: Current every day smoker Smokeless Tobacco Status: No Alcohol use: none Drug use: none - Family History Father Living Status: Hx Family Cardiac Disorders: No Hx Family Respiratory Disorders: No Hx Family Cancer: Yes (Colon) Hx Family GI Disorders: No Hx Family Endocrine Disorder: No Hx Family Neuromuscular Disorders: No Hx Family Neurologic Disorders: No Hx Family HEENT Disorders: No Hx Family Autoimmune Disorders: No Mother History Unknown: Yes Living Status: Hx Family Cardiac Disorders: Yes (bradycardia) Hx Family Respiratory Disorders: Yes (copd, emphysema) Hx Family Cancer: Yes (lung cancer) Hx Family GI Disorders: No Hx Family Endocrine Disorder: Yes (Diabetes) Hx Family Neuromuscular Disorders: No Hx Family Neurologic Disorders: No Hx Family HEENT Disorders: No Hx Family Autoimmune Disorders: No All Systems: A 10-system review of systems was performed and is negative for pertinent findings except as documented above in the HPI. - Constitutional Constitutional: fatigue, weakness, no chills, no fever(s) - EENT Nose, mouth and throat: no dysphagia - Cardiovascular Cardiovascular: no chest pain - Respiratory Respiratory: cough, dyspnea - Gastrointestinal Gastrointestinal: no abdominal pain Physical Examination Vital Signs: Vital Signs, Last 4 Hours Temp Pulse Resp BP Pulse Ox 06/20/17 08:00 101 16 122/66 96 06/20/17 07:45 107 06/20/17 07:40 20 96 06/20/17 07:38 97.8 F 06/20/17 07:00 111 17 103/66 95 06/20/17 06:02 113 15 101/69 94 06/20/17 05:02 115 15 99/71 93 General appearance: no acute distress Eyes: nonicteric ENT: oropharynx moist Neck: supple Effort: normal Inspection: normal Cardiovascular: regular rate and rhythm Gastrointestinal: normoactive bowel sounds, soft, non-tender, non-distended Integumentary: normal Extremities: no cyanosis Musculoskeletal: no deformities normal mental status, non-focal exam Results - Laboratory Findings CBC and BMP: 06/20/17 05:51 06/20/17 05:51 ABG ABG pH 7.30 pH Units (7.32-7.45) L D 06/20/17 04:12 ABG pCO2 99 mmHg (35-45) H* D 06/20/17 04:12 ABG pO2 56 mmHg (85-104) L 06/20/17 04:12 ABG O2 Saturation 82 % (95-98) L 06/20/17 04:12 Abnormal lab findings: Abnormal lab results WBC 4.1 K/mcL (4.3-11.1) L 06/20/17 05:51 RBC 3.50 M/mcL (3.82-4.97) L 06/20/17 05:51 Hgb 9.9 g/dL (11.5-15.4) L 06/20/17 05:51 Hct 34.8 % (35.3-44.9) L 06/20/17 05:51 MCHC 28.4 g/dL (31.6-35.5) L 06/20/17 05:51 Lymphocytes # 0.3 K/mcL (0.6-4.6) L 06/20/17 05:51 Hypochromasia Present (Not Present) A 06/20/17 05:51 Anisocytosis 1+ (Not Present) A 06/20/17 05:51 ABG pH 7.30 pH Units (7.32-7.45) L D 06/20/17 04:12 ABG pCO2 99 mmHg (35-45) H* D 06/20/17 04:12 ABG pO2 56 mmHg (85-104) L 06/20/17 04:12 ABG HCO3 48 mEq/L (21-27) H 06/20/17 04:12 ABG Total CO2 51 mEq/L (20-26) H 06/20/17 04:12 ABG O2 Saturation 82 % (95-98) L 06/20/17 04:12 ABG Base Excess 17 mEq/L (-2 to 3) H 06/20/17 04:12 Potassium 4.7 mEq/L (3.5-4.5) H 06/20/17 05:51 Chloride 91 mEq/L (98-109) L 06/20/17 05:51 Carbon Dioxide 42 mEq/L (19-29) H* 06/20/17 05:51 Creatinine 0.48 mg/dL (0.57-1.11) L 06/20/17 05:51 BUN/Creatinine Ratio 40 (6-26) H 06/20/17 05:51 Glucose 126 mg/dL (70-99) H 06/20/17 05:51 POC Glucose 117 (58-89) H 06/20/17 03:34 Magnesium 1.5 mg/dL (1.6-2.6) L 06/20/17 05:51 Troponin I 0.23 ng/mL (0-0.03) H* 06/20/17 05:51 B-Natriuretic Peptide 257 pg/mL (0-100) H 06/20/17 05:51 - Diagnostic Findings Chest x-ray: report reviewed - Clinical Findings Intake & Output: Intake & Output 06/19/17 06/20/17 06/20/17 23:59 07:59 15:59 Intake Total 0 / 0 Balance 0 / 0 Weight 52.6 kg
[2017-06-20] MEDS: Budesonide/Formoterol 160/4.5 MDI IH SCH ×2 (11:38→19:59)
--- NOTE | 2017-06-20 13:59 | Palliative - Consult Note ---
Date of Encounter: 06/20/17 Time of Encounter: 11:00 - Assessment and Plan (1) Goals of care, counseling/discussion Current Visit: Yes Status: Acute Assessment and plan: Patient alert, calm and tolerating NC at 4L. Patient alone in the room. Discussed patients desires for intubation, mechanical ventilation and CPR. Patient states that she has always wanted everything done for her breathing. She agreed to intubation and CPR as well as vasopressors and ACLS protocols. She reports being enrolled in [facility]. I called the [facility] and obtained patients documents. Patient was transferred to [facility] from [facility] but forms never arrived with patient. ECF forms indicate that patient was FULL CODE and patient still desires this. Reviewed DPOA forms and Sister and niece are listed as agents. Called kassidy Mckenna and she reported that they were not notified of patients admit. I informed them of patients desires for FULL CODE and she stated that she was aware of it. Clarisa reports that they will attempt to visit later today. Code status clarified and we appreciate the consult and will sign-off for now. Please call with any additional needs. (2) Dyspnea Current Visit: No Status: Acute Assessment and plan: Tolerating NC 4L of O2. Bipap at bedside and being used PRN. Solumedrol, Symbicort, and Duonebs as needed. Position for comfort. Qualifiers: Dyspnea type: unspecified Qualified Code(s): R06.00 - Dyspnea, unspecified (3) Acute on chronic respiratory failure with hypoxia and hypercapnia Current Visit: Yes Status: Acute (4) Acute exacerbation of chronic obstructive airways disease Current Visit: No Status: Acute Palliative-CN HPI - Data of Consult Patient: new to practice Consult date: 06/20/17 Requesting Physician: Deniz Lewis Primary Care Provider: Larry Chanel MD - Consult Narrative Palliative Care/Comfort Measures: Palliative care Reason for consult: Code status clarification History of present illness: Ms. De Oliveira is a 57 year old female with past medical history of end-stage COPD, atrial fibrillation, coronary artery disease, hyperlipidemia, hypertension, history of GI bleed, anxiety and depression. She presents as a transfer from [facility]. Patient presented to the ED from [facility] for altered mental status. Upon this consult, the patient is awake but falls asleep easily. She is able to answer a few questions. It is difficult to obtain history from her due to medical condition. The patient is now on 4L NC oxygen. Patient was initially found to be hypoxic on arrival to the ED. She was placed on BiPAP, and her sats had improved. Patient does have a history of end-stage COPD and has been enrolled in [facility] at the [facility] with her terminal illness of end-stage COPD. This palliative care consult is for code status clarification. Current CODE STATUS full code. CC: Yolis Yap, ANICETO Past Med Surg Social Fam HX - Past Medical History Source: old records reviewed, obtained from family, nursing notes reviewed Medical history: atrial fibrillation, COPD, coronary artery disease, GI bleed, hyperlipidemia, hypertension, myocardial infarction, other (History of encephalopathy, "cognitive communication deficit", anemia) Psychiatric history: anxiety, depression - Past Surgical History Surgical History: angioplasty/stent - Social History Smoking Status: Current every day smoker Smokeless Tobacco Status: No Alcohol use: none Drug use: none Occupational status: unemployed Current living situation: [facility]) Activity Level: Mostly sedentary Recent Out of Country Travel Within the Last 8 Weeks: No Exposure or Possible Exposure to Illness During Travel: No - Family History Father Living Status: Hx Family Cardiac Disorders: No Hx Family Respiratory Disorders: No Hx Family Cancer: Yes (Colon) Hx Family GI Disorders: No Hx Family Endocrine Disorder: No Hx Family Neuromuscular Disorders: No Hx Family Neurologic Disorders: No Hx Family HEENT Disorders: No Hx Family Autoimmune Disorders: No Mother History Unknown: Yes Living Status: Hx Family Cardiac Disorders: Yes (bradycardia) Hx Family Respiratory Disorders: Yes (copd, emphysema) Hx Family Cancer: Yes (lung cancer) Hx Family GI Disorders: No Hx Family Endocrine Disorder: Yes (Diabetes) Hx Family Neuromuscular Disorders: No Hx Family Neurologic Disorders: No Hx Family HEENT Disorders: No Hx Family Autoimmune Disorders: No Medications and Allergies Albuterol Sulfate [Ventolin Hfa] 1 puff IH Q6H PRN 06/19/17 [History] Atorvastatin [Lipitor] 80 mg PO HS 06/19/17 [History] Fluticasone/Vilanterol [Breo Ellipta 100-25 Mcg INH] 1 each IH DAILY 06/19/17 [ History] Guaifenesin [Mucinex] 600 mg PO BID 06/19/17 [History] Hyoscyamine SL [Levsin SL] 0.125 mg SL Q2H PRN 06/19/17 [History] Oxycodone HCl [Oxaydo] 5 mg PO Q4H PRN 06/19/17 [History] Promethazine HCl 25 mg PO Q6H PRN 06/19/17 [History] Promethazine HCl [Phenadoz] 25 mg RC Q6H PRN 06/19/17 [History] Rivaroxaban [Xarelto] 20 mg PO DAILY 06/19/17 [History] Tiotropium [Spiriva] 18 mcg IH DAILY 06/19/17 [History] predniSONE [PredniSONE] 10 mg PO DAILY 06/19/17 [History] Acetaminophen [Tylenol 650mg SUPP] 650 mg RC Q4H PRN 06/20/17 [History] Ibuprofen [Motrin] 400 mg PO Q6HR PRN 06/20/17 [History] LORazepam [Ativan] 0.5 mg PO Q4HR PRN 06/20/17 [History] Lactobacillus Acidophilus [Acidophilus] 1 cap PO BID 06/20/17 [History] 3 Allergy/AdvReac Type Severity Reaction Status Date / Time codeine Allergy Hives Verified 06/20/17 08:23 ROS unobtainable: due to mental status (patient unable to provide detailed account of history) - Constitutional Constitutional ROS PAL: fatigue - Respiratory Respiratory: dyspnea - Musculoskeletal Musculoskeletal ROS IM: muscle weakness - Neurological Neurological ROS: weakness - Psychiatric Psychiatric general PM: anxiety Palliative Care-Exam - Constitutional Vitals: Temp Pulse Resp BP Pulse Ox 97.8 F 89 18 98/61 98 06/20/17 07:38 06/20/17 13:00 06/20/17 13:00 06/20/17 13:00 06/20/17 13:00 General appearance: Present: cooperative - Head Head Exam: Present: atraumatic - Eye Eye exam: Present: PERRL - ENT ENT exam: Present: mucous membranes moist - Expanded ENT Exam Mouth Exam: Present: moist - Respiratory Respiratory exam: Present: decreased breath sounds - Expanded Respiratory Exam Location: decreased breath sounds: Left, Right, Lower - Cardiovascular Cardiovascular exam: Present: RRR, +S1, +S2 - Expanded Cardiovascular Exam Peripheral pulses: 1+: Femoral (L) PM, Femoral (R) PM, Posterior Tibialis (L), Posterior Tibialis (R), 2+: Carotid (L) PM, Carotid (R) PM, Radial (L), Radial ( R), Dorsalis Pedis (L) PM, Dorsalis Pedis (R) PM - GI/Abdominal Exam GI/Abdominal exam: Present: normal bowel sounds, soft - Rectal Rectal exam: Present: deferred - Catheter Type: Urethral (Alanis) - Neurological Exam Neurological exam: Present: alert - Psychiatric Psychiatric exam: Present: normal affect - Skin Skin exam: Present: pallor, warm Internal Medicine - CN: Reslt - Labs CBC & Chem 7: 06/20/17 05:51 06/20/17 05:51 Labs: Short CBC 06/20/17 Range/Units 05:51 WBC 4.1 L (4.3-11.1) K/mcL Hgb 9.9 L (11.5-15.4) g/dL Hct 34.8 L (35.3-44.9) % Plt Count 156 (140-400) K/mcL Neutrophils # 3.7 (1.6-8.9) K/mcL BMP 06/20/17 05:51 Sodium 139 Potassium 4.7 H Chloride 91 L Carbon Dioxide 42 H* BUN 19 Creatinine 0.48 L Glucose 126 H Calcium 8.7 Cardiac Enzymes 06/20/17 06/20/17 Range/Units 05:51 09:31 Troponin I 0.23 H* 0.20 H* (0-0.03) ng/mL - ABG Interpretation ABG results: ABG ABG pH 7.30 pH Units (7.32-7.45) L D 06/20/17 04:12 ABG pCO2 99 mmHg (35-45) H* D 06/20/17 04:12 ABG pO2 56 mmHg (85-104) L 06/20/17 04:12 ABG O2 Saturation 82 % (95-98) L 06/20/17 04:12 Consult Discharge Plan - Plan Referrals: Larry Chanel MD [Primary Care Provider] - Palliative Quality Palliative Quality: Screen for Code Status: Yes, Screen for Goals of Care: Yes, Screen for Pain: Yes, If Pain Regimen Started, Initiate Bowel Regimen: Yes, Screen for Nausea/Vomitting: Yes Code Status: 06/20/17 03:43 Resuscitation Status: Active [RES] Routine Comment: Resuscitation Status: Full Code
--- NOTE | 2017-06-20 16:36 | Event Note ---
Date of Encounter: 06/20/17 Time of Encounter: 15:40 Patients sister and POA arrived and discussed DPOA forms. New advanced directive form sent from ECF via fax received and indicated that patient had changed daughter Rose Royal as DPOA. Formed reviewed with Giselle Ramos REGISTERED NURSE [employer]LEMETRY and Wayne BECKFORD and found to be not valid as it lacked a date and signature. Current document indicating DPOA Ijeoma patients sister is complete document and will be followed as contact DPOA. Documents filed in patients folder. Clarified with Ijeoma and patient verbalized understanding. Patient desires Full Code status.
[2017-06-21] MEDS: methylPREDNISolone 125 MG/2 ML VIAL IVP SCH ×3 (00:29→17:34)
[2017-06-21] MEDS: Ipratropium/Albuterol Neb 3 ML IH SCH ×6 (00:51→20:37)
[2017-06-21 03:32] LABS: Hematocrit 33.6 % (35.3-44.9); Hemoglobin 9.8 g/dL (11.5-15.4); Immature Granulocytes % 0.4 % (0-4); Lymphocytes # 0.3 K/mcL (0.6-4.6); Lymphocytes % 4.2 %; Mean Corpuscular HGB Conc 29.2 g/dL (31.6-35.5); Mean Corpuscular Hemoglobin 28.7 pg (28.0-33.3); Mean Corpuscular Volume 98.2 fL (83.0-100.0); Mean Platelet Volume 10.5 fL (9.4-12.4); Monocytes # 0.2 K/mcL (0.0-1.3); Monocytes % 2.5 %; Neutrophils # 7.2 K/mcL (1.6-8.9); Platelet Count 167 K/mcL (140-400); Red Blood Count 3.42 M/mcL (3.82-4.97); Red Cell Distribution Width 14.3 % (11.5-14.5); Segmented Neutrophils % 92.9 %
[2017-06-21 03:51] LABS: Alanine Aminotransferase 21 Units/L (0-55); Albumin 3.1 g/dL (3.5-5.0); Alkaline Phosphatase 72 Units/L (38-126); Aspartate Amino Transferase 21 Units/L (5-34); BUN/Creatinine Ratio 23 (6-26); Bilirubin,Total 0.3 mg/dL (0.2-1.2); Blood Urea Nitrogen 12 mg/dL (7-20); Chloride 90 mEq/L (98-109); Glucose 109 mg/dL (70-99); Osmolality,Calculated 290 (280-300); Phosphorous 2.2 mg/dL (2.3-4.7); Potassium 4.1 mEq/L (3.5-4.5); Sodium 140 mEq/L (136-145); Total Protein 6.1 g/dL (6.0-8.3); eGFR For African Americans > 60 (> 60); eGFR For Non-African Americans > 60 (> 60)
[2017-06-21 04:03] LABS: Carbon Dioxide 46 mEq/L (19-29)
[2017-06-21] MEDS: Famotidine 20 MG/2 ML VIAL IVP SCH ×2 (06:11→17:34)
[2017-06-21] MEDS: Budesonide/Formoterol 160/4.5 MDI IH SCH ×2 (07:34→20:37)
[2017-06-21] MEDS: cefTRIAXone 1,000 MG in Water for inj. (sterile) 10 ML IVP SCH (07:47)
--- NOTE | 2017-06-21 08:09 | Pulmonology Progress Note ---
<Lucien Garcia M - Last Filed: 06/21/17 10:48> Date of Encounter: 06/21/17 Objective PUL Vital signs: Last Vital Signs Temp 98.4 F 06/21/17 07:29 Pulse 114 06/21/17 08:00 Resp 26 06/21/17 08:00 BP 149/74 06/21/17 08:00 Pulse Ox 87 06/21/17 08:00 Results - Laboratory Findings CBC and BMP: 06/21/17 03:24 06/21/17 03:24 ABG ABG pH 7.30 pH Units (7.32-7.45) L D 06/20/17 04:12 ABG pCO2 99 mmHg (35-45) H* D 06/20/17 04:12 ABG pO2 56 mmHg (85-104) L 06/20/17 04:12 ABG O2 Saturation 82 % (95-98) L 06/20/17 04:12 Abnormal lab findings: Abnormal lab results RBC 3.42 M/mcL (3.82-4.97) L 06/21/17 03:24 Hgb 9.8 g/dL (11.5-15.4) L 06/21/17 03:24 Hct 33.6 % (35.3-44.9) L 06/21/17 03:24 MCHC 29.2 g/dL (31.6-35.5) L 06/21/17 03:24 Lymphocytes # 0.3 K/mcL (0.6-4.6) L 06/21/17 03:24 Hypochromasia Present (Not Present) A 06/20/17 05:51 Anisocytosis 1+ (Not Present) A 06/20/17 05:51 ABG pH 7.30 pH Units (7.32-7.45) L D 06/20/17 04:12 ABG pCO2 99 mmHg (35-45) H* D 06/20/17 04:12 ABG pO2 56 mmHg (85-104) L 06/20/17 04:12 ABG HCO3 48 mEq/L (21-27) H 06/20/17 04:12 ABG Total CO2 51 mEq/L (20-26) H 06/20/17 04:12 ABG O2 Saturation 82 % (95-98) L 06/20/17 04:12 ABG Base Excess 17 mEq/L (-2 to 3) H 06/20/17 04:12 Chloride 90 mEq/L (98-109) L 06/21/17 03:24 Carbon Dioxide 46 mEq/L (19-29) H* 06/21/17 03:24 Creatinine 0.52 mg/dL (0.57-1.11) L 06/21/17 03:24 Glucose 109 mg/dL (70-99) H 06/21/17 03:24 POC Glucose 117 (58-89) H 06/20/17 03:34 Phosphorus 2.2 mg/dL (2.3-4.7) L 06/21/17 03:24 Troponin I 0.14 ng/mL (0-0.03) H* 06/20/17 14:20 B-Natriuretic Peptide 257 pg/mL (0-100) H 06/20/17 05:51 Albumin 3.1 g/dL (3.5-5.0) L 06/21/17 03:24 Albumin/Globulin Ratio 1.0 (1.1-2.2) L 06/21/17 03:24 - Clinical Findings Intake & Output: Intake & Output 06/20/17 06/21/17 06/21/17 23:59 07:59 15:59 Intake Total 290 / 290 850 / 850 360 / 360 Output Total 1100 / 1100 1400 / 1400 Balance -810 / -810 -550 / -550 360 / 360 Weight 53.2 kg Consult Discharge Plan - Plan Referrals: Larry Chanel MD [Primary Care Provider] - - Attending Attestation I examined this patient and my medical decision-making was reviewed with the Resident Physician. I agree with the documented findings, disposition and treatment plan as described except to the extent set forth below. Patient seen and examined. Labs, radiology, chart personally reviewed. 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 Continue noninvasive ventilation. Patient has advance disease and expected her CO2 and bicarbonate to be intact range. Cardiovascular: stable GI: Nutrition per dietary and GI prophylaxis per routine Heme: DVT prophylaxis per routine Renal; urine out put and renal funtion reviewed Endorcine: blood glucose is monitored Lines: all lines checked and no evidence of infections Skin: skin care to prevent pressure ulcers per nursing routine care Patient can be transferred to the floor. <Maribel Daigle - Last Filed: 06/21/17 12:13> Date of Encounter: 06/21/17 Time of Encounter: 08:08 Assessment and Plan (1) Acute on chronic respiratory failure with hypoxia and hypercapnia Current Visit: Yes Status: Acute 57 yo female with PMH of A-fib, CAD, HTN, HLD and end-stage COPD, for which patient was on [facility], admitted to [place] ICU for acute on chronic respiratory failure with hypoxia and hypercapnia. Critical care/pulmonology was consulted for end stage COPD. - Adequate oxygenation this AM. Continue Solu-Medrol, Symbicort, Duoneb, antibiotic and supplemental oxygen for AE COPD. BIPAP overnight. -Palliative on consult and has clarified goals of care with patient's POA and patient, and clinically appropriate for transfer. (2) Acute exacerbation of chronic obstructive airways disease Current Visit: No Status: Acute Continue Solu-Medrol, Symbicort, Duoneb, antibiotic and supplemental oxygen, in line with GOLD guidelines (3) Acute encephalopathy Current Visit: Yes Status: Resolved Resolved. (4) CAD (coronary artery disease) Current Visit: Yes Status: Chronic Continue management Qualifiers: Coronary Disease-Associated Artery/Lesion type: [place] artery [place] vs. transplanted heart: [place] heart Associated angina: without angina Qualified Code(s): I25.10 - Atherosclerotic heart disease of [place] coronary artery without angina pectoris (5) Afib Current Visit: Yes Status: Chronic Continue management Qualifiers: Atrial fibrillation type: unspecified Qualified Code(s): I48.91 - Unspecified atrial fibrillation (6) DVT prophylaxis Current Visit: Yes Status: Acute will continue Xarelto (7) Goals of care, counseling/discussion Current Visit: Yes Status: Acute Palliative care on consult, appreciate recs Code Status: Full Code (8) Elevated troponin Current Visit: Yes Status: Acute -Likely secondary to demand ischemia d/t acute respiratory failure, anemia and A-fib. Pt on Tele. Continue to monitor. Subjective Principal diagnosis: AE of COPD Interval history: No acute events overnight. Pt exhibiting coherent speech and goal-directed thought, with no difficult in speech. No laboared respirations. Sitting comfortably and eating without difficulty. Objective PUL Vital signs: Last Vital Signs Temp 98.4 F 06/21/17 07:29 Pulse 114 06/21/17 08:00 Resp 26 06/21/17 08:00 BP 149/74 06/21/17 08:00 Pulse Ox 87 06/21/17 08:00 General appearance: no acute distress Eyes: nonicteric Neck: supple Effort: normal Auscultation: bilateral: wheezes Cardiovascular: irregular rhythm Gastrointestinal: normoactive bowel sounds, soft, non-tender Extremities: no edema pupils equal and round mood appropriate Results - Laboratory Findings CBC and BMP: 06/21/17 03:24 06/21/17 03:24 ABG ABG pH 7.30 pH Units (7.32-7.45) L D 06/20/17 04:12 ABG pCO2 99 mmHg (35-45) H* D 06/20/17 04:12 ABG pO2 56 mmHg (85-104) L 06/20/17 04:12 ABG O2 Saturation 82 % (95-98) L 06/20/17 04:12 Abnormal lab findings: Abnormal lab results RBC 3.42 M/mcL (3.82-4.97) L 06/21/17 03:24 Hgb 9.8 g/dL (11.5-15.4) L 06/21/17 03:24 Hct 33.6 % (35.3-44.9) L 06/21/17 03:24 MCHC 29.2 g/dL (31.6-35.5) L 06/21/17 03:24 Lymphocytes # 0.3 K/mcL (0.6-4.6) L 06/21/17 03:24 Hypochromasia Present (Not Present) A 06/20/17 05:51 Anisocytosis 1+ (Not Present) A 06/20/17 05:51 ABG pH 7.30 pH Units (7.32-7.45) L D 06/20/17 04:12 ABG pCO2 99 mmHg (35-45) H* D 06/20/17 04:12 ABG pO2 56 mmHg (85-104) L 06/20/17 04:12 ABG HCO3 48 mEq/L (21-27) H 06/20/17 04:12 ABG Total CO2 51 mEq/L (20-26) H 06/20/17 04:12 ABG O2 Saturation 82 % (95-98) L 06/20/17 04:12 ABG Base Excess 17 mEq/L (-2 to 3) H 06/20/17 04:12 Chloride 90 mEq/L (98-109) L 06/21/17 03:24 Carbon Dioxide 46 mEq/L (19-29) H* 06/21/17 03:24 Creatinine 0.52 mg/dL (0.57-1.11) L 06/21/17 03:24 Glucose 109 mg/dL (70-99) H 06/21/17 03:24 POC Glucose 117 (58-89) H 06/20/17 03:34 Phosphorus 2.2 mg/dL (2.3-4.7) L 06/21/17 03:24 Troponin I 0.14 ng/mL (0-0.03) H* 06/20/17 14:20 B-Natriuretic Peptide 257 pg/mL (0-100) H 06/20/17 05:51 Albumin 3.1 g/dL (3.5-5.0) L 06/21/17 03:24 Albumin/Globulin Ratio 1.0 (1.1-2.2) L 06/21/17 03:24 - Clinical Findings Intake & Output: Intake & Output 06/20/17 06/21/17 06/21/17 23:59 07:59 15:59 Intake Total 290 / 290 840 / 840 Output Total 1100 / 1100 1400 / 1400 Balance -810 / -810 -560 / -560 Weight 53.2 kg
[2017-06-21] MEDS ORDERED: *HR* LORazepam 2 MG/ML VIAL IVP PRN (12:34)
[2017-06-21] MEDS ORDERED: Acetaminophen 325 MG TABLET PO PRN (12:34)
[2017-06-21] MEDS ORDERED: Naloxone 0.4 MG/ML INJ IVP PRN (12:34)
[2017-06-21] MEDS ORDERED: Ondansetron 4 MG/2 ML VIAL IVP PRN (12:34)
--- NOTE | 2017-06-21 12:56 | Event Note ---
Date of Encounter: 06/21/17 Time of Encounter: 12:55 Sign out provided to admitting hospitalist Dr. Cao, who accepted the patient for transfer.
[2017-06-21] MEDS: *HR* Rivaroxaban 10 MG TABLET PO SCH (17:34)
[2017-06-21] MEDS ORDERED: *HR* Rivaroxaban 10 MG TABLET PO SCH (18:00)
[2017-06-22] MEDS: methylPREDNISolone 125 MG/2 ML VIAL IVP SCH ×3 (00:07→15:58)
[2017-06-22] MEDS: Ipratropium/Albuterol Neb 3 ML IH SCH ×8 (00:25→20:14)
[2017-06-22 06:14] LABS: Red Cell Distribution Width 14.4 % (11.5-14.5)
[2017-06-22 06:15] LABS: Hematocrit 32.8 % (35.3-44.9); Hemoglobin 9.3 g/dL (11.5-15.4); Immature Granulocytes % 0.3 % (0-4); Lymphocytes # 0.4 K/mcL (0.6-4.6); Lymphocytes % 7.5 %; Mean Corpuscular HGB Conc 28.4 g/dL (31.6-35.5); Mean Corpuscular Hemoglobin 28.3 pg (28.0-33.3); Mean Corpuscular Volume 99.7 fL (83.0-100.0); Mean Platelet Volume 10.4 fL (9.4-12.4); Monocytes # 0.2 K/mcL (0.0-1.3); Monocytes % 2.7 %; Neutrophils # 5.3 K/mcL (1.6-8.9); Platelet Count 168 K/mcL (140-400); Red Blood Count 3.29 M/mcL (3.82-4.97); Segmented Neutrophils % 89.5 %
[2017-06-22] MEDS: Famotidine 20 MG/2 ML VIAL IVP SCH ×2 (06:23→17:37)
[2017-06-22 06:34] LABS: BUN/Creatinine Ratio 31 (6-26); Blood Urea Nitrogen 15 mg/dL (7-20); Calcium 8.5 mg/dL (8.6-10.8); Chloride 93 mEq/L (98-109); Glucose 141 mg/dL (70-99); Osmolality,Calculated 297 (280-300); Potassium 4.6 mEq/L (3.5-4.5); Sodium 142 mEq/L (136-145); eGFR For African Americans > 60 (> 60); eGFR For Non-African Americans > 60 (> 60)
[2017-06-22 06:35] LABS: Carbon Dioxide 47 mEq/L (19-29)
[2017-06-22 06:46] LABS: Anisocytosis 1+ (Not Present); Hypochromasia Present (Not Present); Platelet Estimate Normal (Normal)
[2017-06-22] MEDS: Budesonide/Formoterol 160/4.5 MDI IH SCH ×2 (07:31→20:14)
[2017-06-22] MEDS: cefTRIAXone 1,000 MG in Water for inj. (sterile) 10 ML IVP SCH (08:34)
--- NOTE | 2017-06-22 10:20 | Internal Med Progress Note ---
Date of Encounter: 06/22/17 Time of Encounter: 10:15 - Assessment and plan (1) Acute exacerbation of chronic obstructive airways disease Current Visit: No Status: Acute Assessment and plan: Patient was admitted with the acute exacerbation of COPD. Presently on appropriate therapy for COPD exacerbation. She is on antibiotics: Ceftriaxone Steroids: Salmeterol bronchodilators: DuoNeb. Patient still has mild wheezing on examination. We will continue present treatment for now. We will follow the respiratory status (2) CAD (coronary artery disease) Current Visit: Yes Status: Chronic Assessment and plan: Presently patient denies any chest pain. We will continue home medications per Qualifiers: Coronary Disease-Associated Artery/Lesion type: [place] artery [place] vs. transplanted heart: [place] heart Associated angina: without angina Qualified Code(s): I25.10 - Atherosclerotic heart disease of [place] coronary artery without angina pectoris (3) Hypertension Current Visit: No Status: Chronic Assessment and plan: Patient blood pressure is within acceptable limits. will continue the same medications. Qualifiers: Hypertension type: essential hypertension Qualified Code(s): I10 - Essential (primary) hypertension (4) Nicotine dependence Current Visit: No Status: Chronic Assessment and plan: Discussed at length regarding smoking cessation Qualifiers: Nicotine product type: cigarettes Substance use status: other nicotine- induced disorder Qualified Code(s): F17.218 - Nicotine dependence, cigarettes , with other nicotine-induced disorders (5) Afib Current Visit: Yes Status: Chronic Assessment and plan: Patient is known to have a chronic atrial fibrillation. Anticoagulation:Xarelto Rate is well controlled. Qualifiers: Atrial fibrillation type: unspecified Qualified Code(s): I48.91 - Unspecified atrial fibrillation (6) DVT prophylaxis Current Visit: Yes Status: Acute Assessment and plan: Xarelto - Subjective Interval history: Patient seen and examined. Chart reviewed. Patient is comfortably lying in the bed. Patient denies any chest pain, nausea, vomiting, abdominal pain, dizziness or diarrhea. Patient does have occasional shortness of breath. Patient does have cough. Patient claims that her wheezing is much better as compared to the stay in the ICU. Patient is keen to go home. We had a long discussion regarding the plan of care. After the discussion patient agreed to participate in her care and would like to stay and cooperate in the workup. - Constitutional Vitals: Temp Pulse Resp BP Pulse Ox 97.5 F L 93 21 122/71 97 11/24/17 08:00 06/22/17 08:00 06/22/17 08:00 06/22/17 08:00 06/22/17 08:00 General appearance: Present: cachectic, A&O X 3, pleasant, no acute distress, underweight, answers questions appropriately - Head Head exam: Present: atraumatic, normocephalic - Eye Eye exam: Present: PERRL, conjuntiva pink, sclera anicteric Pupils: Present: PERRL - Neck Neck exam general surgery: Present: supple, trachea midline. Absent: lymphadenopathy - Respiratory Respiratory exam: Present: CTAB. Absent: accessory muscle use, rales, rhonchi, wheezes - Cardiovascular Cardiovascular exam: Present: RRR, +S1, +S2. Absent: diastolic murmur, gallop, rubs, systolic murmur - GI/Abdominal GI/Abdominal exam: Present: normal bowel sounds, soft, no peritoneal signs. Absent: distended, tenderness - Extremities Exam Extremities exam: Present: warm, radial pulses palpable and symmetrical. Absent : calf tenderness, cyanotic, pedal edema - Neurological Exam Neurological exam: Present: CN II-XII intact, oriented X3, no focal deficits. Absent: pronater drift, facial droop, speech deficit - Skin Skin exam: Present: dry, intact Internal Medicine: Result - Labs CBC & Chem 7: 06/22/17 06:04 06/22/17 06:04 Labs: Short CBC 06/22/17 Range/Units 06:04 WBC 5.9 (4.3-11.1) K/mcL Hgb 9.3 L (11.5-15.4) g/dL Hct 32.8 L (35.3-44.9) % Plt Count 168 (140-400) K/mcL Neutrophils # 5.3 (1.6-8.9) K/mcL BMP 06/22/17 06:04 Sodium 142 Potassium 4.6 H Chloride 93 L Carbon Dioxide 47 H* BUN 15 Creatinine 0.49 L Glucose 141 H Calcium 8.5 L - ABG Interpretation ABG results: ABG ABG pH 7.30 pH Units (7.32-7.45) L D 06/20/17 04:12 ABG pCO2 99 mmHg (35-45) H* D 06/20/17 04:12 ABG pO2 56 mmHg (85-104) L 06/20/17 04:12 ABG O2 Saturation 82 % (95-98) L 06/20/17 04:12 Consult Discharge Plan - Plan Referrals: Larry Chanel MD [Primary Care Provider] -
--- NOTE | 2017-06-22 13:58 | Electrocardiograph Report ---
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
[2017-06-22] MEDS: *HR* Rivaroxaban 10 MG TABLET PO SCH (17:37)
[2017-06-23] MEDS: methylPREDNISolone 125 MG/2 ML VIAL IVP SCH ×3 (00:06→16:48)
[2017-06-23] MEDS: Ipratropium/Albuterol Neb 3 ML IH SCH ×7 (00:20→23:11)
[2017-06-23] MEDS: Famotidine 20 MG/2 ML VIAL IVP SCH ×2 (07:25→16:48)
--- NOTE | 2017-06-23 08:00 | Internal Med Progress Note ---
Date of Encounter: 06/23/17 Time of Encounter: 07:58 - Assessment and plan (1) Acute exacerbation of chronic obstructive airways disease Current Visit: No Status: Acute Assessment and plan: Patient was admitted with the acute exacerbation of COPD. Presently on appropriate therapy for COPD exacerbation. She is on antibiotics: Ceftriaxone Steroids: Salmeterol bronchodilators: DuoNeb. Patient still has mild wheezing and diminished breath sounds on examination, continue IV ceftriaxone. We will continue present treatment for now. We will follow the respiratory status (2) CAD (coronary artery disease) Current Visit: Yes Status: Chronic Assessment and plan: Presently patient denies any chest pain. We will continue Lipitor Qualifiers: Coronary Disease-Associated Artery/Lesion type: [place] artery [place] vs. transplanted heart: [place] heart Associated angina: without angina Qualified Code(s): I25.10 - Atherosclerotic heart disease of [place] coronary artery without angina pectoris (3) Hypertension Current Visit: No Status: Chronic Assessment and plan: Patient blood pressure is within acceptable limits. She is not on any medications. Qualifiers: Hypertension type: essential hypertension Qualified Code(s): I10 - Essential (primary) hypertension (4) Nicotine dependence Current Visit: No Status: Chronic Assessment and plan: Discussed at length regarding smoking cessation Qualifiers: Nicotine product type: cigarettes Substance use status: other nicotine- induced disorder Qualified Code(s): F17.218 - Nicotine dependence, cigarettes , with other nicotine-induced disorders (5) Afib Current Visit: Yes Status: Chronic Assessment and plan: Patient is known to have a chronic atrial fibrillation. Anticoagulation:Xarelto Rate is well controlled. Qualifiers: Atrial fibrillation type: unspecified Qualified Code(s): I48.91 - Unspecified atrial fibrillation (6) DVT prophylaxis Current Visit: Yes Status: Acute Assessment and plan: Xarelto (7) Acute on chronic respiratory failure with hypoxia and hypercapnia Current Visit: Yes Status: Acute Assessment and plan: Patient was in the ICU improved and the moved out of ICU she was unable to tolerate the BiPAP at night currently she is alert and oriented 3 on 4 L nasal cannula. We will continue IV steroids - Time Spent With Patient 25 - 35 minutes - Subjective Interval history: Patient seen and examined. Chart reviewed. Patient is comfortably lying in the bed she reports still any shortness of breasts went up to the commode she was on 4 L nasal cannula at [facility], last night she was unable to tolerate the BiPAP. Patient denies any chest pain, nausea, vomiting, abdominal pain, dizziness or diarrhea. Patient does have cough. Patient is keen to go home. We had a long discussion regarding the plan of care. After the discussion patient agreed to participate in her care and would like to stay and cooperate in the workup. - Constitutional Vitals: Temp Pulse Resp BP Pulse Ox 98.5 F 81 16 110/54 94 06/23/17 03:51 06/23/17 03:51 06/23/17 04:35 06/23/17 03:51 06/23/17 04:35 CONSTITUTIONAL: patient appears as an age appropriate female in no acute distress. EYES Clear sclerae, bilateral pupils are equal, reactive to light. EMOI. RESPIRATORY: No accessory muscle use, bilateral deminished to auscultation, no wheezing, scant crackles/rales to right sided CARDIOVASCULAR: Regular heart rate, normal S1 and S2, no murmurs GASTROINTESTINAL: bowel sounds present, soft, no tenderness. MUSCULOSKELETAL: Joints in normal range of motion, no clubbing, no edema, no cyanosis. Bilateral peripheral pulses 2+. NEUROLOGIC: CN II to XII are grossly intact, no focal neurological deficit. General appearance: Present: cachectic, A&O X 3, pleasant, no acute distress, underweight, answers questions appropriately Internal Medicine: Result - Labs CBC & Chem 7: 06/22/17 06:04 06/22/17 06:04 - ABG Interpretation ABG results: ABG ABG pH 7.30 pH Units (7.32-7.45) L D 06/20/17 04:12 ABG pCO2 99 mmHg (35-45) H* D 06/20/17 04:12 ABG pO2 56 mmHg (85-104) L 06/20/17 04:12 ABG O2 Saturation 82 % (95-98) L 06/20/17 04:12 Consult Discharge Plan - Plan Referrals: Larry Chanel MD [Primary Care Provider] -
[2017-06-23] MEDS: Budesonide/Formoterol 160/4.5 MDI IH SCH ×2 (08:08→19:39)
[2017-06-23] MEDS: cefTRIAXone 1,000 MG in Water for inj. (sterile) 10 ML IVP SCH (09:14)
[2017-06-23] MEDS: *HR* Rivaroxaban 10 MG TABLET PO SCH (16:48)
[2017-06-24] MEDS: methylPREDNISolone 125 MG/2 ML VIAL IVP SCH ×2 (01:00→09:20)
[2017-06-24] MEDS: Ipratropium/Albuterol Neb 3 ML IH SCH ×6 (04:16→23:15)
[2017-06-24] MEDS: Famotidine 20 MG/2 ML VIAL IVP SCH ×2 (06:37→17:36)
[2017-06-24] MEDS: Budesonide/Formoterol 160/4.5 MDI IH SCH ×2 (07:47→20:11)
[2017-06-24] MEDS ORDERED: predniSONE 20 MG TABLET PO ONE (09:09)
--- NOTE | 2017-06-24 09:12 | Internal Med Progress Note ---
Date of Encounter: 06/24/17 Time of Encounter: 09:10 - Assessment and plan (1) Acute exacerbation of chronic obstructive airways disease Current Visit: No Status: Acute Assessment and plan: Patient was admitted with the acute exacerbation of COPD. Presently on appropriate therapy for COPD exacerbation. She is on antibiotics: Ceftriaxone Steroids: Salmeterol bronchodilators: DuoNeb. Patient still has mild wheezing and diminished breath sounds on examination, continue IV ceftriaxone. We will change IV steroids to oral prednisone, watch overnight Possible discharge tomorrow back to [facility], she was on 4 L nasal cannula at baseline (2) CAD (coronary artery disease) Current Visit: Yes Status: Chronic Assessment and plan: Presently patient denies any chest pain. We will continue Lipitor Qualifiers: Coronary Disease-Associated Artery/Lesion type: [place] artery [place] vs. transplanted heart: [place] heart Associated angina: without angina Qualified Code(s): I25.10 - Atherosclerotic heart disease of [place] coronary artery without angina pectoris (3) Hypertension Current Visit: No Status: Chronic Assessment and plan: Patient blood pressure is within acceptable limits. She is not on any medications. Qualifiers: Hypertension type: essential hypertension Qualified Code(s): I10 - Essential (primary) hypertension (4) Nicotine dependence Current Visit: No Status: Chronic Assessment and plan: Discussed at length regarding smoking cessation Qualifiers: Nicotine product type: cigarettes Substance use status: other nicotine- induced disorder Qualified Code(s): F17.218 - Nicotine dependence, cigarettes , with other nicotine-induced disorders (5) Afib Current Visit: Yes Status: Chronic Assessment and plan: Patient is known to have a chronic atrial fibrillation. Anticoagulation:Xarelto Rate is well controlled. Qualifiers: Atrial fibrillation type: unspecified Qualified Code(s): I48.91 - Unspecified atrial fibrillation (6) DVT prophylaxis Current Visit: Yes Status: Acute Assessment and plan: Xarelto (7) Acute on chronic respiratory failure with hypoxia and hypercapnia Current Visit: Yes Status: Acute Assessment and plan: Patient was in the ICU improved and the moved out of ICU she was unable to tolerate the BiPAP at night currently she is alert and oriented 3 on 4 L nasal cannula. We will change his steroids to oral. - Time Spent With Patient 25 - 35 minutes - Subjective Interval history: Patient seen and examined. Chart reviewed. Patient is doing ok, but still has bad cough spasm, she was on 4 L nasal cannula at [facility], last night she was unable to tolerate the BiPAP. Patient denies any chest pain, nausea, vomiting, abdominal pain, dizziness or diarrhea. Patient does have cough. Patient is keen to go home. We had a long discussion regarding the plan of care. will change IV steroids to oral and watch ON - Constitutional Vitals: Temp Pulse Resp BP Pulse Ox 98.0 F 63 14 105/62 96 06/24/17 06:07 06/24/17 06:07 06/24/17 06:07 06/24/17 06:07 06/24/17 06:07 CONSTITUTIONAL: patient appears as an age appropriate female in no acute distress. EYES Clear sclerae, bilateral pupils are equal, reactive to light. EMOI. RESPIRATORY: No accessory muscle use, bilateral diminished wheezing, no crackles /rales. CARDIOVASCULAR: Regular heart rate, normal S1 and S2, no murmurs GASTROINTESTINAL: bowel sounds present, soft, no tenderness. MUSCULOSKELETAL: Joints in normal range of motion, no clubbing, no edema, no cyanosis. Bilateral peripheral pulses 2+. NEUROLOGIC: CN II to XII are grossly intact, no focal neurological deficit. General appearance: Present: cachectic, A&O X 3, pleasant, no acute distress, underweight, answers questions appropriately Internal Medicine: Result - Labs CBC & Chem 7: 06/22/17 06:04 06/22/17 06:04 - ABG Interpretation ABG results: ABG ABG pH 7.30 pH Units (7.32-7.45) L D 06/20/17 04:12 ABG pCO2 99 mmHg (35-45) H* D 06/20/17 04:12 ABG pO2 56 mmHg (85-104) L 06/20/17 04:12 ABG O2 Saturation 82 % (95-98) L 06/20/17 04:12 Consult Discharge Plan - Plan Referrals: Larry Chanel MD [Primary Care Provider] -
[2017-06-24] MEDS: cefTRIAXone 1,000 MG in Water for inj. (sterile) 10 ML IVP SCH (09:18)
[2017-06-24 10:01] LABS: Hematocrit 37.4 % (35.3-44.9); Hemoglobin 10.6 g/dL (11.5-15.4); Mean Corpuscular HGB Conc 28.3 g/dL (31.6-35.5); Mean Corpuscular Volume 98.9 fL (83.0-100.0); Mean Platelet Volume 10.5 fL (9.4-12.4); Platelet Count 213 K/mcL (140-400); Red Blood Count 3.78 M/mcL (3.82-4.97); Red Cell Distribution Width 14.5 % (11.5-14.5)
[2017-06-24 10:03] LABS: BUN/Creatinine Ratio 17 (6-26); Blood Urea Nitrogen 9 mg/dL (7-20); Calcium 9.2 mg/dL (8.6-10.8); Chloride 90 mEq/L (98-109); Glucose 157 mg/dL (70-99); Osmolality,Calculated 292 (280-300); Potassium 4.2 mEq/L (3.5-4.5); Sodium 140 mEq/L (136-145); eGFR For African Americans > 60 (> 60); eGFR For Non-African Americans > 60 (> 60)
[2017-06-24 10:14] LABS: Carbon Dioxide 45 mEq/L (19-29)
[2017-06-24 11:10] LABS: Lymphocytes # 0.9 K/mcL (0.6-4.6); Neutrophils # 5.5 K/mcL (1.6-8.9); Reactive Lymphocytes Present (Not Present)
[2017-06-24 11:11] LABS: Platelet Estimate Normal (Normal)
[2017-06-24] MEDS: *HR* Rivaroxaban 10 MG TABLET PO SCH (17:36)
[2017-06-25] MEDS: Ipratropium/Albuterol Neb 3 ML IH SCH ×5 (04:21→20:47)
[2017-06-25] MEDS: Famotidine 20 MG/2 ML VIAL IVP SCH ×2 (05:22→17:39)
[2017-06-25] MEDS: Budesonide/Formoterol 160/4.5 MDI IH SCH ×2 (07:24→20:48)
[2017-06-25] MEDS: cefTRIAXone 1,000 MG in Water for inj. (sterile) 10 ML IVP SCH (08:50)
--- NOTE | 2017-06-25 15:30 | Internal Med Progress Note ---
Date of Encounter: 06/25/17 Time of Encounter: 15:28 - Assessment and plan (1) Acute exacerbation of chronic obstructive airways disease Current Visit: No Status: Acute Assessment and plan: Patient was admitted with the acute exacerbation of COPD. antibiotics: Ceftriaxone Steroids: Salmeterol bronchodilators: DuoNeb. Start IV steroids as dysenic. (2) Hypertension Current Visit: No Status: Chronic Assessment and plan: Stable Qualifiers: Hypertension type: essential hypertension Qualified Code(s): I10 - Essential (primary) hypertension (3) Tobacco abuse Current Visit: No Status: Acute Assessment and plan: start Nicotine patch (4) Acute on chronic respiratory failure with hypoxia and hypercapnia Current Visit: Yes Status: Acute Assessment and plan: Patient was in the ICU improved and the moved out of ICU she was unable to tolerate the BiPAP at night currently she is alert and oriented 3 on 4 L nasal cannula. - Subjective Interval history: On 4 liter oxygen , Still dyspneic. No chest pain. Transffered from ICU for Resp failure. - Constitutional Vitals: Temp Pulse Resp BP Pulse Ox 97.9 F 92 17 97/53 92 06/25/17 12:19 06/25/17 12:19 06/25/17 12:19 06/25/17 12:19 06/25/17 12:19 General appearance: Present: cachectic, A&O X 3, pleasant, no acute distress, underweight, answers questions appropriately - Head Head exam: Present: atraumatic, normocephalic - Eye Eye exam: Present: PERRL, conjuntiva pink, sclera anicteric Pupils: Present: PERRL - Neck Neck exam general surgery: Present: supple, trachea midline. Absent: lymphadenopathy - Respiratory Respiratory exam: Present: decreased breath sounds, rhonchi, wheezes. Absent: accessory muscle use, rales - Cardiovascular Cardiovascular exam: Present: RRR, +S1, +S2. Absent: diastolic murmur, gallop, rubs, systolic murmur - GI/Abdominal GI/Abdominal exam: Present: normal bowel sounds, soft, no peritoneal signs. Absent: distended, tenderness - Extremities Exam Extremities exam: Present: warm, radial pulses palpable and symmetrical. Absent : calf tenderness, cyanotic, pedal edema - Neurological Exam Neurological exam: Present: CN II-XII intact, oriented X3, no focal deficits. Absent: pronater drift, facial droop, speech deficit - Skin Skin exam: Present: dry, intact Internal Medicine: Result - Labs CBC & Chem 7: 06/24/17 09:12 06/24/17 09:12 - ABG Interpretation ABG results: ABG ABG pH 7.30 pH Units (7.32-7.45) L D 06/20/17 04:12 ABG pCO2 99 mmHg (35-45) H* D 06/20/17 04:12 ABG pO2 56 mmHg (85-104) L 06/20/17 04:12 ABG O2 Saturation 82 % (95-98) L 06/20/17 04:12 Consult Discharge Plan - Plan Referrals: Larry Chanel MD [Primary Care Provider] -
[2017-06-25] MEDS: methylPREDNISolone 125 MG/2 ML VIAL IVP SCH (16:02)
[2017-06-25] MEDS: *HR* Rivaroxaban 10 MG TABLET PO SCH (17:39)
[2017-06-26] MEDS: Ipratropium/Albuterol Neb 3 ML IH SCH ×4 (00:48→12:02)
[2017-06-26] MEDS: methylPREDNISolone 125 MG/2 ML VIAL IVP SCH ×2 (01:55→09:10)
[2017-06-26] MEDS: Famotidine 20 MG/2 ML VIAL IVP SCH (06:18)
[2017-06-26 07:29] VITALS: BP 106/66
[2017-06-26] MEDS: Budesonide/Formoterol 160/4.5 MDI IH SCH (08:06)
[2017-06-26] MEDS: cefTRIAXone 1,000 MG in Water for inj. (sterile) 10 ML IVP SCH (09:10)
--- NOTE | 2017-06-26 11:07 | Discharge Summary ---
Date of Encounter: 06/26/17 Time of Encounter: 11:02 - Discharge Diagnosis (1) Acute encephalopathy Priority: Primary Status: Resolved (2) Acute on chronic respiratory failure with hypoxia and hypercapnia Priority: Primary Status: Acute (3) Acute exacerbation of chronic obstructive airways disease Priority: Primary Status: Acute (4) Elevated troponin Priority: Primary Status: Acute (5) Afib Priority: Secondary Status: Chronic Qualifiers: Atrial fibrillation type: unspecified Qualified Code(s): I48.91 - Unspecified atrial fibrillation (6) Tobacco abuse Priority: Secondary Status: Acute - Discharge Medications Prescriptions: LORazepam [Ativan] 0.5 mg PO Q4HR PRN #20 tablet PRN Reason: Anxiety Levofloxacin [Levaquin] 500 mg PO DAILY #2 tablet Oxycodone HCl [Oxaydo] 5 mg PO Q6H PRN #20 tablet.orl PRN Reason: Pain Home Medications: Albuterol Sulfate [Ventolin Hfa] 1 puff IH Q6H PRN 06/19/17 [History] Atorvastatin [Lipitor] 80 mg PO HS 06/19/17 [History] Fluticasone/Vilanterol [Breo Ellipta 100-25 Mcg INH] 1 each IH DAILY 06/19/17 [ History] Guaifenesin [Mucinex] 600 mg PO BID 06/19/17 [History] Hyoscyamine SL [Levsin Sl] 0.125 mg SL Q2H PRN 06/19/17 [History] Promethazine HCl 25 mg PO Q6H PRN 06/19/17 [History] Promethazine HCl [Phenadoz] 25 mg RC Q6H PRN 06/19/17 [History] Rivaroxaban [Xarelto] 20 mg PO DAILY 06/19/17 [History] Tiotropium [Spiriva] 18 mcg IH DAILY 06/19/17 [History] Acetaminophen [Tylenol 650mg SUPP] 650 mg RC Q4H PRN 06/20/17 [History] Lactobacillus Acidophilus [Acidophilus] 1 cap PO BID 06/20/17 [History] LORazepam [Ativan] 0.5 mg PO Q4HR PRN #20 tablet 06/26/17 [Rx] Levofloxacin [Levaquin] 500 mg PO DAILY #2 tablet 06/26/17 [Rx] Oxycodone HCl [Oxaydo] 5 mg PO Q6H PRN #20 tablet.orl 06/26/17 [Rx] predniSONE [PredniSONE] 40 mg PO DAILY #0 06/26/17 [Rx] Allergies/Adverse Reactions: 3 Allergy/AdvReac Type Severity Reaction Status Date / Time codeine Allergy Hives Verified 06/20/17 08:23 Date of admission: 06/20/17 03:37 Primary care physician: Larry Chanel MD Consults: 06/20/17 04:40 Consult to Palliative Care [CONS] Routine Comment: Consulting Provider: Palliative Care [facility] Reason for Consult: End-stage COPD, hospice care at ECF Call Completed: No Consult to Pulmonology [CONS] Routine Consulting Provider: [facility] [place] Reason for Consult: End-stage COPD Call Completed: No 06/20/17 08:00 Consult to Food Production Manager [CONS] Routine Reason for SW Consult: return to intermediate w/ hospice after this admit 06/20/17 15:57 Consult to Food Production Manager [CONS] Routine Reason for SW Consult: POA, RETURN TO ECF - Patient Status Disposition: Transfer SNF Condition: Good Overall status at discharge: patient is back to baseline - Discharge Instructions Follow Up With: Larry Chanel MD [Primary Care Provider] - - Diet and Activity Activity: as per physical therapy, increase activity as tolerated, wear oxygen at all times (4 lit) Diet: advance to your usual diet Hospital course: Ms. De Oliveira is a 57 year old female with past medical history of end-stage COPD, atrial fibrillation, coronary artery disease, hyperlipidemia, hypertension, history of GI bleed, anxiety and depression. Patient presented to the ED from [facility] for altered mental status and severe COPD exacerbation. Pt was admitted to ICU initially and placed her on BiPAP and high dose IV steroids as well as empirical abx. Her symptoms started improving slowly. She did have severe hyper capneic resp failure, she could get benefit with BiPAP use. However pt refused to wear BiPAP. She have not used her BiPAP from last 4 days. Breathing hartley she is back to baseline with 4 lit O2 through NC, she is alert, awake and O x 3. No events over night. So will d/c her to ECF in stable condition today. She is going back to ECF under hospice care again. - Time Spent with Patient Total time spent providing and/or coordinating discharge services: - Constitutional Vitals: Temp Pulse Resp BP Pulse Ox 98.4 F 75 16 106/66 97 06/26/17 07:25 06/26/17 07:25 06/26/17 08:07 06/26/17 07:25 06/26/17 08:07 General appearance: Present: cachectic, A&O X 3, pleasant, no acute distress, underweight, answers questions appropriately - Head Head exam: Present: atraumatic, normal inspection - Respiratory Respiratory exam: Present: decreased breath sounds, wheezes (mild). Absent: rales, respiratory distress, rhonchi - Cardiovascular Cardiovascular exam: Present: irregular rhythm, +S1, +S2 - GI/Abdominal GI/Abdominal exam: Present: normal bowel sounds, soft. Absent: rebound, rigid, tenderness - Extremities Exam Extremities exam: Absent: calf tenderness, pedal edema, tenderness - Back Exam Back exam: Absent: CVA tenderness (L), CVA tenderness (R) - Neurological Exam Neurological exam: Present: alert, oriented X3 - Psychiatric Psychiatric exam: Present: normal affect, normal mood
--- NOTE | 2017-06-26 11:09 | Physician Discharge Referral ---
ExtendedCare Referral Info Transfer To: F Provider in Charge after Transfer: PCP Institutional Level of Care: Skilled - Diagnosis (1) Acute encephalopathy Status: Resolved (2) Acute on chronic respiratory failure with hypoxia and hypercapnia Status: Acute (3) Acute exacerbation of chronic obstructive airways disease Status: Acute (4) Elevated troponin Status: Acute (5) Afib Status: Chronic (6) Tobacco abuse Status: Acute - Transfer Medications Prescriptions: LORazepam [Ativan] 0.5 mg PO Q4HR PRN #20 tablet PRN Reason: Anxiety Levofloxacin [Levaquin] 500 mg PO DAILY #2 tablet Oxycodone HCl [Oxaydo] 5 mg PO Q6H PRN #20 tablet.orl PRN Reason: Pain Home Medications: Albuterol Sulfate [Ventolin Hfa] 1 puff IH Q6H PRN 06/19/17 [History] Atorvastatin [Lipitor] 80 mg PO HS 06/19/17 [History] Fluticasone/Vilanterol [Breo Ellipta 100-25 Mcg INH] 1 each IH DAILY 06/19/17 [ History] Guaifenesin [Mucinex] 600 mg PO BID 06/19/17 [History] Hyoscyamine SL [Levsin Sl] 0.125 mg SL Q2H PRN 06/19/17 [History] Promethazine HCl 25 mg PO Q6H PRN 06/19/17 [History] Promethazine HCl [Phenadoz] 25 mg RC Q6H PRN 06/19/17 [History] Rivaroxaban [Xarelto] 20 mg PO DAILY 06/19/17 [History] Tiotropium [Spiriva] 18 mcg IH DAILY 06/19/17 [History] Acetaminophen [Tylenol 650mg SUPP] 650 mg RC Q4H PRN 06/20/17 [History] Lactobacillus Acidophilus [Acidophilus] 1 cap PO BID 06/20/17 [History] LORazepam [Ativan] 0.5 mg PO Q4HR PRN #20 tablet 06/26/17 [Rx] Levofloxacin [Levaquin] 500 mg PO DAILY #2 tablet 06/26/17 [Rx] Oxycodone HCl [Oxaydo] 5 mg PO Q6H PRN #20 tablet.orl 06/26/17 [Rx] predniSONE [PredniSONE] 40 mg PO DAILY #0 06/26/17 [Rx] Allergies/Adverse Reactions: 3 Allergy/AdvReac Type Severity Reaction Status Date / Time codeine Allergy Hives Verified 06/20/17 08:23 - Respiratory Orders Smoking Cessation: Smoking cessation has been advised. For more information, call the [place] Tobacco Quit Line at 2-269-NFPG-NOW. CERTIFICATION: I certify that the transfer of the above named patient to an Extended Care Facility is necessary for the continuing treatment of the diagnosis listed. The above information is true and accurate reflection of patient's current condition. Confidential - Redisclosure prohibited without a patient's written consent.
[2017-06-26] MEDS ORDERED: Famotidine 20 MG TABLET PO SCH (21:00)
== END 2017-06-26 14:10 | DRG 133 ==
LOC: ICNU 03:37 → SUATTDRO 03:37 → 3ANU 06-21 13:09
PROVIDERS: ADMIT Internal Medicine; ATTEND Family Medicine

== ENCOUNTER 2017-11-18 08:23 | Inpatient (IN) ==
[2017-11-18] MEDS ORDERED: *HR* FentaNYL (PF) 100 MCG/2 ML VIAL IVP ONE (11:00)
[2017-11-18] MEDS ORDERED: *HR* Midazolam HCl 2 MG/2 ML VIAL ONE (11:00)
[2017-11-18] MEDS ORDERED: *HR* Midazolam HCl 2 MG/2 ML VIAL IVP ONE (11:00)
[2017-11-18] MEDS ORDERED: *HR* FentaNYL (PF) 100 MCG/2 ML VIAL ONE (11:01)
[2017-11-18 11:38] LABS: ABG Base Excess 14 mEq/L (-2 to 3); ABG HCO3 40 mEq/L (21-27); ABG Oxygen Saturation 98 % (95-98); ABG PCO2 63 mmHg (35-45); ABG PH 7.42 pH Units (7.32-7.45); ABG PO2 106 mmHg (85-104); ABG TCO2 42 mEq/L (20-26); Blood Gas Modality ASSIST CONTROL; Blood Gas PEEP 5 cm H2O; Blood Gas Respiration Rate 14; Blood Gas VT 400 cc
--- NOTE | 2017-11-18 11:52 | Pulmonology History & Physical ---
<Oskar Kay W - Last Filed: 11/18/17 11:53> Date of Encounter: 11/18/17 History of Present Illness HPI: Ms. De Oliveira is a 57 year old female Medications and Allergies Albuterol Sulfate [Ventolin Hfa] 1 puff IH Q6H PRN 06/19/17 [History] Atorvastatin [Lipitor] 80 mg PO HS 06/19/17 [History] Fluticasone/Vilanterol [Breo Ellipta 100-25 Mcg INH] 1 puff IH DAILY 06/19/17 [ History] Guaifenesin [Mucinex] 600 mg PO BID 06/19/17 [History] Hyoscyamine SL [Levsin Sl] 0.125 mg SL Q2H PRN 06/19/17 [History] Promethazine HCl 25 mg PO Q6H PRN 06/19/17 [History] Rivaroxaban [Xarelto] 20 mg PO DAILY 06/19/17 [History] Acetaminophen [Tylenol 650mg SUPP] 650 mg RC Q4H PRN 06/20/17 [History] Oxycodone HCl [Oxaydo] 5 mg PO Q6H PRN #20 tablet.orl 06/26/17 [Rx] Dextran 70/Hypromellose/Pf [Artificial Tears Drops] 1 drop OP BID PRN 11/18/17 [ History] Ibuprofen [Motrin] 400 mg PO Q6HR PRN 11/18/17 [History] Ipratropium/Albuterol Neb [Duoneb] 3 ml IH QID PRN 11/18/17 [History] predniSONE [PredniSONE] 10 mg PO DAILY 11/18/17 [History] 3 Allergy/AdvReac Type Severity Reaction Status Date / Time codeine Allergy Hives Verified 06/20/17 08:23 All Systems: The remainder of the systems were reviewed and are negative Physical Examination Vital Signs: Vital Signs, Last 4 Hours Resp BP Pulse Ox 11/18/17 11:39 10 114/88 97 11/18/17 10:50 14 114/88 98 Results - Laboratory Findings ABG ABG pH 7.42 pH Units (7.32-7.45) 11/18/17 11:29 ABG pCO2 63 mmHg (35-45) H D 11/18/17 11:29 ABG pO2 106 mmHg (85-104) H 11/18/17 11:29 ABG O2 Saturation 98 % (95-98) 11/18/17 11:29 Abnormal lab findings: Abnormal lab results ABG pCO2 63 mmHg (35-45) H D 11/18/17 11:29 ABG pO2 106 mmHg (85-104) H 11/18/17 11:29 ABG HCO3 40 mEq/L (21-27) H 11/18/17 11:29 ABG Total CO2 42 mEq/L (20-26) H 11/18/17 11:29 ABG Base Excess 14 mEq/L (-2 to 3) H 11/18/17 11:29 - Attending Attestation I examined this patient and my medical decision-making was reviewed with the Resident Physician. I agree with the documented findings, disposition and treatment plan as described except to the extent set forth below. We independently had [id number] contact with the patient I spent 34min of Critical Care time with this patient. It involved decision making of high complexity to assess, manipulate, and support vital organ system failure and/or to prevent further life threatening deterioration of the patient' s condition. The time involved in the performance of separately reportable procedures was not counted toward critical care time. Patient seen and examined at bedside Labs, radiology, chart personally reviewed. TAPING SUPERVISOR: Acute encephalopathy likely secondary to hypercarbia. Head CT pending no clear deficits on exam although patient unable to fully participate in neuro examination. We will continue sedation while on the vent including fentanyl and Precedex for goal Kenny 3 Pulm: Acute on chronic hypoxic hypercapnic respiratory failure which is secondary to likely pneumonia with COPD exacerbation the patient has essentially terminal COPD. Will give IV steroids schedule bronchodilators and antibiotics. I evaluated the vent settings and last blood gas consistent with respiratory alkalosis with underlying chronic respiratory acidosis I decreased her minute ventilation to address this. Sedation should also help. Peak pressures on vent are acceptable continue to monitor Cards: Blood pressure currently stable without indication for vasopressor support will continue to monitor this FEN-GI: Nothing by mouth for now patient has a history of GI hemorrhage in the past and has acute on chronic anemia there is no overt evidence of hemorrhage at this time but will place on proton pump infusion until clinical course dictates otherwise Renal: Urine output monitored ID: Likely acute pneumonia with exposure to hospital-acquired pathogens along with atypical pathogens broad-spectrum antimicrobial coverage has been instituted with planned to de-escalate based upon cultures and sensitivity we are checking a lactate now. Patient has received 2 L of IV crystalloid infusion Heme/Onc: DVT prophylaxis with SCDs for now. Patient has acute on chronic anemia I suspect this is likely secondary to chronic blood loss as opposed to acute given presentation however cannot fully exclude presumed GI source she has been transfused 1 unit of PRBCs with plan to recheck CBC subsequently we will trend CBC throughout the day may need CT of the abdomen does not increment appropriately and/or GI consultation Endo: Glucose Monitored Integ/MSK: Skin Care per routine ICU Nursing Protocol to prevent ulcers. Lines: All lines examined without evidence of infection : Dispo: Remain in ICU for critical illness CODE: The patient is currently full code. There is some confusion about underlying CODE STATUS when she presented to the outside hospital's ED. And question of whether not she was a hospice patient or not but reviewing her past documented conversations with palliative care appears to discussions between her family were such that she wanted to remain full code despite the fact that she has what appears to be terminal COPD. Unfortunately all the numbers of the context that we have thus far are not working and so we cannot contact the family but we will consult social services analyst to help with this matter and will likely palliative care consult in the morning. <Nicholas Davidson - Last Filed: 11/18/17 18:00> Date of Encounter: 11/18/17 Time of Encounter: 11:52 Assessment and Plan (1) Acute and chronic respiratory failure with hypercapnia Current visit: Yes Status: Acute Arterial blood gas demonstrated the following: - PH 7.42, PCO2 63, PO2 106, bicarbonate 40, total CO2 42 - Patient is currently intubated on mechanical ventilation; respiration rate 14 , inspired O2 40, tidal volume 400, PEEP 5 - Sedated on Precedex and fentanyl - Repeat ABG - Repeat morning labs (2) Pneumonia Current visit: Yes Status: Acute Patients clinical picture is likely due to pneumonia and COPD exacerbation Chest x-ray obtained on 11/18/17 demonstrated the following: RLL airspace disease could represent PNA and there is a small pleural effusion. - Patient has elevated white count of 13.7 with left shift - Blood cultures 2 - Respiratory infection panel pending - Legionella and strep pneumo urine antigen pending - Vancomycin 750 mg IV every 12 - Cefepime 2000 mg IV every 12 hours - Azithromycin 500 mg IV every 24 hours Qualifiers: Qualified Code(s): J18.9 - Pneumonia, unspecified organism (3) COPD exacerbation Current visit: Yes Status: Acute DuoNebs 3 mL inhaled every 4 scheduled - Symbicort 2 puffs inhaled BIDR - Solu-Medrol 60 mg IV every 8 (4) Anemia Current visit: No Status: Chronic Possibly secondary to chronic blood loss Patient initially presented with a low hemoglobin; received 1 unit of blood on arrival to the ICU - Subsequent CBC demonstrated a hemoglobin of 6.8; an additional unit of packed red blood cells as ordered - Trend hemoglobin 3 - CT of the abdomen and pelvis pending - Cause unknown at this time - Protonix infusion Qualifiers: Anemia type: unspecified type Qualified Code(s): D64.9 - Anemia, unspecified (5) DVT prophylaxis Current visit: Yes Status: Acute SCDs History of Present Illness Chief complaint: Altered mental status HPI: Ms. De Oliveira is a 57 year old female with PMH of end-stage COPD, atrial fibrillation, CAD, HLD, HTN, history of GI bleed, anxiety and depression. Patient presented to the ED from [facility] for AMS and severe COPD exacerbation. Pt was admitted to ICU initially and placed her on BiPAP and high dose IV steroids as well as empirical abx. Her symptoms started improving slowly. She did have severe hyper capneic resp failure; pt refused to wear BiPAP. Per chart review, patient began experiencing labored breathing. She would awaken to noxious stimuli and would answer questions, but would then drift back off to sleep. On the morning of presentation, patient was more obtunded, and the decision was made to transport her in for further evaluation. Of note, patient is on hospice for end-stage COPD. She had an elevated respiratory rate of 24, O2 sat was 93% on 4 L of oxygen via nasal cannula. Was transferred to [facility] for further management. Patient admitted to the ICU with acute encephalopathy, which is likely secondary to hypercarbia. Chest x-ray demonstrated the presence of a possible right lower lobe pneumonia. Patient was started on azithromycin, vancomycin, and cefepime. She was intubated and placed on mechanical ventilation. Currently sedated with fentanyl and Precedex. Also being treated for acute on chronic hypoxic hypercapnic respiratory failure. This is likely secondary to pneumonia. We have started antibiotics and scheduled bronchodilators. Of note, patients hemoglobin was noted to be low. Patient received 1 unit of packed red blood cells on arrival. Repeat CBC demonstrated a hemoglobin of 6.8; an additional unit of packed red blood cells has been ordered. We will trend hemoglobin 3. Possibly due to chronic blood loss anemia. Abdominal CT has been ordered; cannot rule out acute GI bleed this time. Currently on IV Protonix. May need GI consult. Past Med Surg Social Fam HX - Past Medical History Medical history: atrial fibrillation, COPD, coronary artery disease, GI bleed, hyperlipidemia, hypertension, myocardial infarction, other (Cognitive communication deficit, iron deficiency anemia) Psychiatric history: anxiety, depression - Past Surgical History Surgical History: angioplasty/stent - Social History Smoking Status: Current every day smoker Smokeless Tobacco Status: No Alcohol use: none Drug use: none - Family History Father Living Status: Hx Family Cardiac Disorders: No Hx Family Respiratory Disorders: No Hx Family Cancer: Yes (Colon) Hx Family GI Disorders: No Hx Family Endocrine Disorder: No Hx Family Neuromuscular Disorders: No Hx Family Neurologic Disorders: No Hx Family HEENT Disorders: No Hx Family Autoimmune Disorders: No Mother Living Status: Hx Family Cardiac Disorders: Yes (bradycardia) Hx Family Respiratory Disorders: Yes (copd, emphysema) Hx Family Cancer: Yes (lung cancer) Hx Family GI Disorders: No Hx Family Endocrine Disorder: Yes (Diabetes) Hx Family Neuromuscular Disorders: No Hx Family Neurologic Disorders: No Hx Family HEENT Disorders: No Hx Family Autoimmune Disorders: No ROS unobtainable: due to endotracheal tube, due to mental status All Systems: The remainder of the systems were reviewed and are negative Physical Examination Vital Signs: Vital Signs, Last 4 Hours Resp BP Pulse Ox 11/18/17 11:39 10 114/88 97 11/18/17 10:50 14 114/88 98 General appearance: asleep ENT: oropharynx moist Neck: supple Effort: normal Inspection: normal Auscultation: bilateral: diminished breath sounds, wheezes, rales Percussion: bilateral: not dull Tactile fremitus: bilateral: normal Cardiovascular: regular rate and rhythm Integumentary: normal Extremities: no cyanosis, no edema, no clubbing Musculoskeletal: no deformities, ROM normal Results - Laboratory Findings CBC and BMP: 11/18/17 13:02 ABG ABG pH 7.42 pH Units (7.32-7.45) 11/18/17 11:29 ABG pCO2 63 mmHg (35-45) H D 11/18/17 11:29 ABG pO2 106 mmHg (85-104) H 11/18/17 11:29 ABG O2 Saturation 98 % (95-98) 11/18/17 11:29 Abnormal lab findings: Abnormal lab results ABG pCO2 63 mmHg (35-45) H D 11/18/17 11:29 ABG pO2 106 mmHg (85-104) H 11/18/17 11:29 ABG HCO3 40 mEq/L (21-27) H 11/18/17 11:29 ABG Total CO2 42 mEq/L (20-26) H 11/18/17 11:29 ABG Base Excess 14 mEq/L (-2 to 3) H 11/18/17 11:29
[2017-11-18] MEDS ORDERED: Naloxone 0.4 MG/ML INJ IVP PRN (12:15)
[2017-11-18 13:11] LABS: Basophils % 0.1 %; Mean Corpuscular Hemoglobin 19.7 pg (28.0-33.3)
[2017-11-18 13:12] LABS: Hematocrit 26.3 % (35.3-44.9); Hemoglobin 6.8 g/dL (11.5-15.4); Immature Granulocytes % 0.5 % (0-4); Lymphocytes # 0.2 K/mcL (0.6-4.6); Lymphocytes % 1.2 %; Mean Corpuscular HGB Conc 25.9 g/dL (31.6-35.5); Mean Platelet Volume 10.6 fL (9.4-12.4); Monocytes # 0.2 K/mcL (0.0-1.3); Monocytes % 1.7 %; Neutrophils # 13.2 K/mcL (1.6-8.9); Platelet Count 362 K/mcL (140-400); Red Blood Count 3.46 M/mcL (3.82-4.97); Red Cell Distribution Width 19.6 % (11.5-14.5); Segmented Neutrophils % 96.5 %
[2017-11-18 13:38] LABS: Anisocytosis 2+ (Not Present); Hypochromasia Present (Not Present); Poikilocytosis 2+ (Not Present)
[2017-11-18 13:39] LABS: Ovalocytes 1+ (Not Present); Platelet Estimate Normal (Normal)
[2017-11-18] MEDS: Dexmedetomidine HCl 400 MCG/100 ML MLS IVC SCH (14:52)
[2017-11-18] MEDS: FentaNYL (PF) 1,000 MCG in 0.9 % Sodium Chloride 80 ML IVC SCH (14:53)
[2017-11-18] MEDS: Pantoprazole 40 MG in 0.9 % Sodium Chloride Mini Bag 100 ML IVC SCH ×2 (14:54→20:38)
[2017-11-18] MEDS: Azithromycin 500 MG in D5% in Water 250 ML IVPB SCH (14:56)
[2017-11-18] MEDS: Ipratropium/Albuterol Neb 3 ML IH SCH ×4 (15:08→23:51)
[2017-11-18 18:19] LABS: Adenovirus Not Detected (Not Detect); Bordetella Pertussis Not Detected (Not Detect); Chlamydophila pneumoniae Not Detected (Not Detect); Coronavirus 229E Not Detected (Not Detect); Coronavirus HKU1 Not Detected (Not Detect); Coronavirus NL63 Not Detected (Not Detect); Coronavirus OC43 Not Detected (Not Detect); Human Metapneumovirus ***DETECTED*** (Not Detect); Human Rhinovirus/Enterovirus Not Detected (Not Detect); Influenza A Subtype 2009 H1 Not Detected (Not Detect); Influenza A Untypeable Not Detected (Not Detect); Influenza B Not Detected (Not Detect); Mycoplasma pneumoniae Not Detected (Not Detect); Parainfluenza Virus 1 Not Detected (Not Detect); Parainfluenza Virus 2 Not Detected (Not Detect); Parainfluenza Virus 3 Not Detected (Not Detect); Parainfluenza Virus 4 Not Detected (Not Detect); Respiratory Syncytial Virus Not Detected (Not Detect)
[2017-11-18] MEDS: methylPREDNISolone 125 MG/2 ML VIAL IVP SCH (18:38)
[2017-11-18] MEDS: Cefepime HCl 2,000 MG in Water for inj. (sterile) 20 ML 20 ML IVP SCH (18:39)
[2017-11-18 19:12] LABS: Hemoglobin 6.6 g/dL (11.5-15.4)
[2017-11-18 19:25] LABS: BUN/Creatinine Ratio 56 (6-26); Blood Urea Nitrogen 18 mg/dL (6-20); Calcium 8.5 mg/dL (8.6-10.3); Carbon Dioxide 40 mEq/L (23-29); Chloride 94 mEq/L (98-107); Glucose 146 mg/dL (70-105); Osmolality,Calculated 287 (280-300); Potassium 4.3 mEq/L (3.5-5.1); Sodium 136 mEq/L (136-145); eGFR For African Americans > 60 (> 60); eGFR For Non-African Americans > 60 (> 60)
[2017-11-18] MEDS: Budesonide/Formoterol 160/4.5 MDI IH SCH (19:59)
[2017-11-18] MEDS ORDERED: 0.9 % Sodium Chloride 250 ML ONE (21:03)
[2017-11-19] MEDS: methylPREDNISolone 125 MG/2 ML VIAL IVP SCH ×4 (01:10→23:49)
[2017-11-19] MEDS: Pantoprazole 40 MG in 0.9 % Sodium Chloride Mini Bag 100 ML IVC SCH ×2 (03:04→07:16)
[2017-11-19] MEDS: Ipratropium/Albuterol Neb 3 ML IH SCH ×6 (03:41→23:35)
[2017-11-19 04:39] LABS: Basophils % 0.1 %; Hematocrit 34.6 % (35.3-44.9); Immature Granulocytes % 0.6 % (0-4); Lymphocytes # 0.4 K/mcL (0.6-4.6); Lymphocytes % 1.7 %; Mean Corpuscular HGB Conc 29.2 g/dL (31.6-35.5); Mean Corpuscular Hemoglobin 22.9 pg (28.0-33.3); Mean Corpuscular Volume 78.5 fL (83.0-100.0); Monocytes # 0.2 K/mcL (0.0-1.3); Monocytes % 0.9 %; Neutrophils # 19.8 K/mcL (1.6-8.9); Platelet Count 343 K/mcL (140-400); Red Blood Count 4.41 M/mcL (3.82-4.97); Red Cell Distribution Width 20.3 % (11.5-14.5); Segmented Neutrophils % 96.7 %
[2017-11-19 04:40] LABS: Hemoglobin 10.1 g/dL (11.5-15.4)
[2017-11-19 04:47] LABS: BUN/Creatinine Ratio 46 (6-26); Blood Urea Nitrogen 18 mg/dL (6-20); Calcium 8.6 mg/dL (8.6-10.3); Carbon Dioxide 38 mEq/L (23-29); Chloride 97 mEq/L (98-107); Glucose 153 mg/dL (70-105); Osmolality,Calculated 299 (280-300); Potassium 4.2 mEq/L (3.5-5.1); Sodium 142 mEq/L (136-145); eGFR For African Americans > 60 (> 60); eGFR For Non-African Americans > 60 (> 60)
[2017-11-19 05:29] LABS: ABG Base Excess 14 mEq/L (-2 to 3); ABG HCO3 41 mEq/L (21-27); ABG Oxygen Saturation 95 % (95-98); ABG PCO2 62 mmHg (35-45); ABG PH 7.43 pH Units (7.32-7.45); ABG PO2 79 mmHg (85-104); ABG TCO2 42 mEq/L (20-26); Blood Gas Modality VC; Blood Gas PEEP 5 cm H2O; Blood Gas Respiration Rate 10; Blood Gas VT 400 cc
[2017-11-19] MEDS: Cefepime HCl 2,000 MG in Water for inj. (sterile) 20 ML 20 ML IVP SCH ×2 (07:21→16:30)
[2017-11-19] MEDS: Budesonide/Formoterol 160/4.5 MDI IH SCH ×2 (07:44→19:50)
--- NOTE | 2017-11-19 08:22 | Pulmonology Progress Note ---
<JoseLaurynamisha M - Last Filed: 11/19/17 10:19> Date of Encounter: 11/19/17 Objective PUL Vital signs: Last Vital Signs Temp 97.6 F 11/19/17 07:00 Pulse 93 11/19/17 09:00 Resp 17 11/19/17 09:00 BP 109/66 11/19/17 09:00 Pulse Ox 96 11/19/17 09:00 Ventilator Settings Ventilator Settings: Ventilator Settings, Last 8 Hours Ventilator Mode CPAP Ventilator Mode CPAP Ventilator Mode VC+ Ventilator Mode VC+ Ventilator Mode VC+ Ventilator Mode VC+ Ventilator Mode VC+ Ventilator Mode VC+ Ventilator Mode VC+ Ventilator Mode VC+ Ventilator Tidal Volume 400 Setting Ventilator Tidal Volume 400 Setting Ventilator Tidal Volume 400 Setting Ventilator Tidal Volume 400 Setting Ventilator Tidal Volume 400 Setting Ventilator Tidal Volume 400 Setting Ventilator Tidal Volume 400 Setting Ventilator Tidal Volume 400 Setting Ventilator Respiratory Rate 10 Setting Ventilator Respiratory Rate 10 Setting Ventilator Respiratory Rate 10 Setting Ventilator Respiratory Rate 10 Setting Ventilator Respiratory Rate 10 Setting Ventilator Respiratory Rate 10 Setting Ventilator Respiratory Rate 10 Setting Ventilator Respiratory Rate 10 Setting Actual Respiratory Rate 17 Actual Respiratory Rate 21 Actual Respiratory Rate 16 Actual Respiratory Rate 14 Actual Respiratory Rate 13 Actual Respiratory Rate 13 Positive End Expiratory 5 Pressure Positive End Expiratory 5 Pressure Positive End Expiratory 5 Pressure Positive End Expiratory 5 Pressure Positive End Expiratory 5 Pressure Positive End Expiratory 5 Pressure Positive End Expiratory 5 Pressure Positive End Expiratory 5 Pressure Positive End Expiratory 5 Pressure Positive End Expiratory 5 Pressure Peak Inspiratory Airway 14 Pressure Peak Inspiratory Airway 14 Pressure Peak Inspiratory Airway 21 Pressure Peak Inspiratory Airway 19 Pressure Peak Inspiratory Airway 20 Pressure Peak Inspiratory Airway 21 Pressure Results - Laboratory Findings CBC and BMP: 11/19/17 04:00 11/19/17 04:00 ABG ABG pH 7.43 pH Units (7.32-7.45) 11/19/17 05:24 ABG pCO2 62 mmHg (35-45) H 11/19/17 05:24 ABG pO2 79 mmHg (85-104) L 11/19/17 05:24 ABG O2 Saturation 95 % (95-98) 11/19/17 05:24 Abnormal lab findings: Abnormal lab results WBC 20.4 K/mcL (4.3-11.1) H 11/19/17 04:00 Hgb 10.1 g/dL (11.5-15.4) L D 11/19/17 04:00 Hct 34.6 % (35.3-44.9) L 11/19/17 04:00 MCV 78.5 fL (83.0-100.0) L 11/19/17 04:00 MCH 22.9 pg (28.0-33.3) L 11/19/17 04:00 MCHC 29.2 g/dL (31.6-35.5) L 11/19/17 04:00 RDW 20.3 % (11.5-14.5) H 11/19/17 04:00 Neutrophils # 19.8 K/mcL (1.6-8.9) H 11/19/17 04:00 Lymphocytes # 0.4 K/mcL (0.6-4.6) L 11/19/17 04:00 Hypochromasia Present (Not Present) A 11/18/17 13:02 Poikilocytosis 2+ (Not Present) A 11/18/17 13:02 Anisocytosis 2+ (Not Present) A 11/18/17 13:02 Ovalocytes 1+ (Not Present) A 11/18/17 13:02 ABG pCO2 62 mmHg (35-45) H 11/19/17 05:24 ABG pO2 79 mmHg (85-104) L 11/19/17 05:24 ABG HCO3 41 mEq/L (21-27) H 11/19/17 05:24 ABG Total CO2 42 mEq/L (20-26) H 11/19/17 05:24 ABG Base Excess 14 mEq/L (-2 to 3) H 11/19/17 05:24 Chloride 97 mEq/L (98-107) L 11/19/17 04:00 Carbon Dioxide 38 mEq/L (23-29) H 11/19/17 04:00 Creatinine 0.39 mg/dL (0.60-1.20) L 11/19/17 04:00 BUN/Creatinine Ratio 46 (6-26) H 11/19/17 04:00 Glucose 153 mg/dL (70-105) H 11/19/17 04:00 POC Glucose 167 mg/dL (70-99) H 11/18/17 17:54 B-Natriuretic Peptide 175 pg/mL (Less than 100) H 11/18/17 12:41 Human Metapneumovir PCR DETECTED (Not Detect) A 11/18/17 10:55 - Microbiology Findings Microbiology Findings: Microbiology, Last 48 Hours 11/18/17 15:28 Legionella Antigen - Final Urine,[place] Streptococcus pneumoniae Antigen (M - Final 11/18/17 10:55 Sputum Culture - Preliminary Sputum - Clinical Findings Intake & Output: Intake & Output 11/18/17 11/19/17 11/19/17 23:59 07:59 15:59 Intake Total 445 / 445 850 / 850 Output Total 250 / 250 200 / 200 Balance 195 / 195 650 / 650 Weight 54.3 kg Consult Discharge Plan - Plan Referrals: Trpip Pena MD [Primary Care Provider] - - Attending Attestation I examined this patient and my medical decision-making was reviewed with the Resident Physician. I agree with the documented findings, disposition and treatment plan as described except to the extent set forth below. Patient seen and examined. Labs, radiology, chart personally reviewed. 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 Patient was extubated successfully this morning. Palliative to see patient since she was hospice by report. Lower steroid dose. Cardiovascular: stable GI: Nutrition per dietary and GI prophylaxis per routine Heme: DVT prophylaxis per routine. SCD for DVT. ID: Continue antibiotics and plan to de-escalation Renal; urine out put and renal funtion reviewed Endorcine: blood glucose is monitored. Lines: all lines checked and no evidence of infections Skin: skin care to prevent pressure ulcers per nursing routine care <Nicholas Davidson - Last Filed: 11/19/17 11:46> Date of Encounter: 11/19/17 Time of Encounter: 09:15 Assessment and Plan (1) Acute and chronic respiratory failure with hypercapnia Current Visit: Yes Status: Acute Arterial blood gas demonstrated the following: - PH 7.43, PCO2 62, PO2 79, bicarbonate 41, total CO2 42 - Patient was successfully extubated today - Continue to monitor patient's clinical status - Repeat morning labs (2) Pneumonia Current Visit: Yes Status: Acute Patients clinical picture is likely due to pneumonia and COPD exacerbation Chest x-ray obtained on 11/18/17 demonstrated the following: RLL airspace disease could represent PNA and there is a small pleural effusion. - Patient has leukocytosis - Vancomycin 750 mg IV every 12 - Cefepime 2000 mg IV every 12 hours - Azithromycin 500 mg IV every 24 hours Qualifiers: Qualified Code(s): J18.9 - Pneumonia, unspecified organism (3) COPD exacerbation Current Visit: Yes Status: Acute DuoNebs 3 mL inhaled every 4 scheduled - Symbicort 2 puffs inhaled BIDR - Solu-Medrol 40 mg IV every 8 (4) Anemia Current Visit: No Status: Inactive Possibly secondary to chronic blood loss Patient initially presented with a low hemoglobin; received 1 unit of blood on arrival to the ICU - Subsequent CBC demonstrated a hemoglobin of 6.8; an additional unit of packed red blood cells as ordered - Trend hemoglobin 3 - CT of the abdomen and pelvis pending - Cause unknown at this time - Protonix infusion Qualifiers: Anemia type: unspecified type Qualified Code(s): D64.9 - Anemia, unspecified (5) DVT prophylaxis Current Visit: Yes Status: Acute SCDs Subjective Principal diagnosis: Acute respiratory failure Interval history: Patient is positive for Metapneumovirus. We will consult palliative today. Acceptable oxygenation and ventilation; patient was successfully extubated today. We will lower steroids today from 60mg every 8 to 40mg. Plan for de- escalation of antibiotics. Objective PUL Vital signs: Last Vital Signs Temp 97.6 F 11/19/17 07:00 Pulse 75 11/19/17 07:00 Resp 17 11/19/17 07:48 BP 105/64 11/19/17 07:48 Pulse Ox 84 11/19/17 08:05 General appearance: no acute distress Eyes: nonicteric Neck: supple Effort: normal Auscultation: bilateral: diminished breath sounds Percussion: bilateral: not dull Tactile fremitus: bilateral: normal Cardiovascular: regular rate and rhythm Gastrointestinal: normoactive bowel sounds, non-distended Integumentary: normal Musculoskeletal: no deformities, ROM normal normal mental status, non-focal exam mood appropriate, affect normal Ventilator Settings Ventilator Settings: Ventilator Settings, Last 8 Hours Ventilator Mode CPAP Ventilator Mode CPAP Ventilator Mode VC+ Ventilator Mode VC+ Ventilator Mode VC+ Ventilator Mode VC+ Ventilator Mode VC+ Ventilator Mode VC+ Ventilator Mode VC+ Ventilator Mode VC+ Ventilator Mode VC+ Ventilator Tidal Volume 400 Setting Ventilator Tidal Volume 400 Setting Ventilator Tidal Volume 400 Setting Ventilator Tidal Volume 400 Setting Ventilator Tidal Volume 400 Setting Ventilator Tidal Volume 400 Setting Ventilator Tidal Volume 400 Setting Ventilator Tidal Volume 400 Setting Ventilator Tidal Volume 400 Setting Ventilator Respiratory Rate 10 Setting Ventilator Respiratory Rate 10 Setting Ventilator Respiratory Rate 10 Setting Ventilator Respiratory Rate 10 Setting Ventilator Respiratory Rate 10 Setting Ventilator Respiratory Rate 10 Setting Ventilator Respiratory Rate 10 Setting Ventilator Respiratory Rate 10 Setting Ventilator Respiratory Rate 10 Setting Actual Respiratory Rate 17 Actual Respiratory Rate 21 Actual Respiratory Rate 16 Actual Respiratory Rate 14 Actual Respiratory Rate 13 Actual Respiratory Rate 13 Actual Respiratory Rate 14 Positive End Expiratory 5 Pressure Positive End Expiratory 5 Pressure Positive End Expiratory 5 Pressure Positive End Expiratory 5 Pressure Positive End Expiratory 5 Pressure Positive End Expiratory 5 Pressure Positive End Expiratory 5 Pressure Positive End Expiratory 5 Pressure Positive End Expiratory 5 Pressure Positive End Expiratory 5 Pressure Positive End Expiratory 5 Pressure Peak Inspiratory Airway 14 Pressure Peak Inspiratory Airway 14 Pressure Peak Inspiratory Airway 21 Pressure Peak Inspiratory Airway 19 Pressure Peak Inspiratory Airway 20 Pressure Peak Inspiratory Airway 21 Pressure Peak Inspiratory Airway 19 Pressure Results - Laboratory Findings CBC and BMP: 11/19/17 04:00 11/19/17 04:00 ABG ABG pH 7.43 pH Units (7.32-7.45) 11/19/17 05:24 ABG pCO2 62 mmHg (35-45) H 11/19/17 05:24 ABG pO2 79 mmHg (85-104) L 11/19/17 05:24 ABG O2 Saturation 95 % (95-98) 11/19/17 05:24 Abnormal lab findings: Abnormal lab results WBC 20.4 K/mcL (4.3-11.1) H 11/19/17 04:00 Hgb 10.1 g/dL (11.5-15.4) L D 11/19/17 04:00 Hct 34.6 % (35.3-44.9) L 11/19/17 04:00 MCV 78.5 fL (83.0-100.0) L 11/19/17 04:00 MCH 22.9 pg (28.0-33.3) L 11/19/17 04:00 MCHC 29.2 g/dL (31.6-35.5) L 11/19/17 04:00 RDW 20.3 % (11.5-14.5) H 11/19/17 04:00 Neutrophils # 19.8 K/mcL (1.6-8.9) H 11/19/17 04:00 Lymphocytes # 0.4 K/mcL (0.6-4.6) L 11/19/17 04:00 Hypochromasia Present (Not Present) A 11/18/17 13:02 Poikilocytosis 2+ (Not Present) A 11/18/17 13:02 Anisocytosis 2+ (Not Present) A 11/18/17 13:02 Ovalocytes 1+ (Not Present) A 11/18/17 13:02 ABG pCO2 62 mmHg (35-45) H 11/19/17 05:24 ABG pO2 79 mmHg (85-104) L 11/19/17 05:24 ABG HCO3 41 mEq/L (21-27) H 11/19/17 05:24 ABG Total CO2 42 mEq/L (20-26) H 11/19/17 05:24 ABG Base Excess 14 mEq/L (-2 to 3) H 11/19/17 05:24 Chloride 97 mEq/L (98-107) L 11/19/17 04:00 Carbon Dioxide 38 mEq/L (23-29) H 11/19/17 04:00 Creatinine 0.39 mg/dL (0.60-1.20) L 11/19/17 04:00 BUN/Creatinine Ratio 46 (6-26) H 11/19/17 04:00 Glucose 153 mg/dL (70-105) H 11/19/17 04:00 POC Glucose 167 mg/dL (70-99) H 11/18/17 17:54 B-Natriuretic Peptide 175 pg/mL (Less than 100) H 11/18/17 12:41 Human Metapneumovir PCR DETECTED (Not Detect) A 11/18/17 10:55 - Microbiology Findings Microbiology Findings: Microbiology, Last 48 Hours 11/18/17 15:28 Legionella Antigen - Final Urine,[place] Streptococcus pneumoniae Antigen (M - Final 11/18/17 10:55 Sputum Culture - Preliminary Sputum - Clinical Findings Intake & Output: Intake & Output 11/18/17 11/19/17 11/19/17 23:59 07:59 15:59 Intake Total 445 / 445 850 / 850 Output Total 250 / 250 200 / 200 Balance 195 / 195 650 / 650 Weight 54.3 kg
[2017-11-19] MEDS ORDERED: Aminoglycoside Consult 1 EACH MC ONE (08:23)
[2017-11-19] MEDS: FentaNYL (PF) 1,000 MCG in 0.9 % Sodium Chloride 80 ML IVC SCH (13:27)
[2017-11-19] MEDS: Azithromycin 500 MG in D5% in Water 250 ML IVPB SCH (13:31)
--- NOTE | 2017-11-19 14:33 | Palliative - Consult Note ---
Date of Encounter: 11/19/17 Time of Encounter: 13:30 - Assessment and Plan (1) Nausea Current Visit: Yes Status: Acute Assessment and plan: Patient reports recent history of some nausea, believes linked to still hungry. Reports vomited some during extubation. Will order Zofran 4 mg ODT PRN. (2) Acute and chronic respiratory failure with hypercapnia Current Visit: Yes Status: Acute Assessment and plan: Patient having acute exacerbation of chronic respiratory failure. Lung sounds CTAB anteriorly. Rub noted to lung sounds posteriorly. Patient receiving Duonebs and Symbicort; Continue as ordered. (3) COPD exacerbation Current Visit: Yes Status: Acute Assessment and plan: Patient having severe exacerbation of COPD. Patient being treated with Duonebs and Solu-Medrol, continue as ordered. (4) Dyspnea Current Visit: No Status: Chronic Assessment and plan: Patient reports chronic dyspnea. Continue Duonebs and oxygen therapy. Qualifiers: Dyspnea type: unspecified Qualified Code(s): R06.00 - Dyspnea, unspecified (5) Goals of care, counseling/discussion Current Visit: No Status: Acute Assessment and plan: Met with patient to confirm code status and goals of care. Patient confirms she wants to be a FULL CODE and is ok with short term intubation. Patient does not want to have a tracheostomy. Patient identified Daughter Noelle Porter ( [phone] as MPOA; verbalizes that it is ok to discuss medical care with her. Patient plans to return to [facility] with [facility]. Spoke with with [facility] for updated MPOA form to be faxed to hospital for updating medical record. Once received will send copy to medical records. Palliative-CN HPI - Data of Consult Patient: known to practice within the last 3 years Consult date: 11/19/17 Requesting Physician: Oskar Kay MD Primary Care Provider: Tripp Pena MD - Consult Narrative Palliative Care/Comfort Measures: Palliative care Reason for consult: Code Status, Clarification of MPOA History of present illness: Ms. De Oliveira is a 57 year old female arrived to [facility] from [facility] with AMS and COPDE. PMH: End stage COPD, Atrial Fibrillation, CAD, HTN, and Hyperlipidemia. Patient is a current patient of [facility]. Was found to have AMS at custodial, who notified [facility] and had Hospice nurse en route when decided to not wait and sent patient to ER. Patient was admitted to ICU and placed on BiPAP. Found to be sever hypercapneic respiratory failure and refused to wear BiPAP. Patient was admitted as a full code per wishes established during previous admissions and on documentation attained from custodial. Patient experienced increased labored breathing and would only awaken to noxious stimulation. Patient was transferred to [facility] for medical management. Patient admitted to [facility] for acute encephalopathy, likely contributed form hypercarbia. Chest X-ray performed showing: The lungs are without acute focal process, no effusion or pneumothorax. Patient was intubated and confirmation of placement established. Head CT performed showing: No acute intracranial abnormality. KUB performed showing positive NG tube placement. CT of abdomen performed showing: No acute abdominopelvic abnormality, with no evidence of retroperitoneal hemorrhage, Bilateral nonobstructing nephrolithiasis, Cholelithiasis, and Sigmoid diverticulosis. Patient was treated for acute on chronic hypoxic hypercapnic respiratory failure secondary to pneumonia with azithromycin, vancomycin, and cefepime. Initial labwork showed hgb to be 6.8 and replaced with unit of PRBC. Patient extubated and tolerating well. Sitting in bed quietly upon entry for assessment. Patient is alert and oriented times two. Patient remains disoriented to time. No family present at bedside. Patient denies pain during assessment. Patient reports some nausea, but reports it's probably because she is hungry. Denies difficulty voiding or with bowel movements, reports last bowel movement yesterday. As patient is currently a hospice patient, clarification was requested in palliative care consult for code status and delineation of MPOA. CODE STATUS confirmed as FULL Code with agreement for short term intubation. Patient identifies Noelle Porter, daughter, with phone number as MPOA. Plan for patient to return to [facility] with [facility]. CC: Oskar Kay MD Past Med Surg Social Fam HX - Past Medical History Medical history: atrial fibrillation, COPD, coronary artery disease, GI bleed, hyperlipidemia, hypertension, myocardial infarction, other (Cognitive communication deficit, iron deficiency anemia) Psychiatric history: anxiety, depression - Past Surgical History Surgical History: angioplasty/stent - Social History Smoking Status: Current every day smoker Smokeless Tobacco Status: No Alcohol use: none Drug use: none - Family History Father Living Status: Hx Family Cardiac Disorders: No Hx Family Respiratory Disorders: No Hx Family Cancer: Yes (Colon) Hx Family GI Disorders: No Hx Family Endocrine Disorder: No Hx Family Neuromuscular Disorders: No Hx Family Neurologic Disorders: No Hx Family HEENT Disorders: No Hx Family Autoimmune Disorders: No Mother Living Status: Hx Family Cardiac Disorders: Yes (bradycardia) Hx Family Respiratory Disorders: Yes (copd, emphysema) Hx Family Cancer: Yes (lung cancer) Hx Family GI Disorders: No Hx Family Endocrine Disorder: Yes (Diabetes) Hx Family Neuromuscular Disorders: No Hx Family Neurologic Disorders: No Hx Family HEENT Disorders: No Hx Family Autoimmune Disorders: No Medications and Allergies Albuterol Sulfate [Ventolin Hfa] 1 puff IH Q6H PRN 06/19/17 [History] Atorvastatin [Lipitor] 80 mg PO HS 06/19/17 [History] Fluticasone/Vilanterol [Breo Ellipta 100-25 Mcg INH] 1 puff IH DAILY 06/19/17 [ History] Guaifenesin [Mucinex] 600 mg PO BID 06/19/17 [History] Hyoscyamine SL [Levsin Sl] 0.125 mg SL Q2H PRN 06/19/17 [History] Promethazine HCl 25 mg PO Q6H PRN 06/19/17 [History] Rivaroxaban [Xarelto] 20 mg PO DAILY 06/19/17 [History] Acetaminophen [Tylenol 650mg SUPP] 650 mg RC Q4H PRN 06/20/17 [History] Oxycodone HCl [Oxaydo] 5 mg PO Q6H PRN #20 tablet.orl 06/26/17 [Rx] Dextran 70/Hypromellose/Pf [Artificial Tears Drops] 1 drop OP BID PRN 11/18/17 [ History] Ibuprofen [Motrin] 400 mg PO Q6HR PRN 11/18/17 [History] Ipratropium/Albuterol Neb [Duoneb] 3 ml IH QID PRN 11/18/17 [History] predniSONE [PredniSONE] 10 mg PO DAILY 11/18/17 [History] 3 Allergy/AdvReac Type Severity Reaction Status Date / Time codeine Allergy Hives Verified 06/20/17 08:23 - Constitutional Constitutional ROS PAL: no decreased appetite, no fatigue - EENT Ears, nose, mouth, throat: dry mouth, no dysphagia - Respiratory Respiratory: cough, dyspnea, dyspnea on exertion - Gastrointestinal Gastrointestinal: no change in bowel habits, no constipation - Genitourinary Palliative ROS female: no change in urinary stream - Psychiatric Psychiatric general PM: anxiety Palliative Care-Exam - Constitutional Vitals: Temp Pulse Resp BP Pulse Ox 97.3 F L 86 22 127/74 96 11/19/17 12:00 11/19/17 13:00 11/19/17 13:00 11/19/17 13:00 11/19/17 13:00 General appearance: Present: cooperative, no acute distress - Head Head Exam: Present: atraumatic, normal inspection - Expanded Head Exam Head exam expanded IM: Absent: abrasion, contusion, raccoon eyes - Eye Eye exam: Present: normal appearance. Absent: nystagmus, periorbital swelling, periorbital tenderness - ENT ENT exam: Present: mucous membranes moist, normal exam, normal external ear exam - Expanded ENT Exam Mouth Exam: Present: normal external inspection. Absent: drooling, muffled voice - Respiratory Respiratory exam: Present: CTAB (anterior lung sounds; rub noted to posterior lung sounds.) - Cardiovascular Cardiovascular exam: Present: irregular rhythm, +S1, +S2 - Expanded Cardiovascular Exam Peripheral pulses: 2+: Carotid (L) PM, Carotid (R) PM, Posterior Tibialis (L), Posterior Tibialis (R), Dorsalis Pedis (L) PM, Dorsalis Pedis (R) PM - GI/Abdominal Exam GI/Abdominal exam: Present: normal bowel sounds, soft. Absent: distended - Rectal Rectal exam: Present: deferred - Catheter Type: Urethral (Alanis) - Extremities Exam Extremities exam: Present: full ROM, normal capillary refill, normal inspection. Absent: calf tenderness, pedal edema, tenderness - Neurological Exam Neurological exam: Present: alert, altered, strengths equal and symetr throughout - Expanded Neurological Exam Neurological exam expanded: Present: inattentive. Absent: expressive aphasia Patient oriented to: Present: person, place Speech: Absent: receptive aphasia, slurred, stutter Cranial nerves: nystagmus: Normal Coma Scale Eye Opening: Spontaneous Coma Scale Motor Response: Obeys Commands Coma Scale Verbal Response: Oriented Coma Scale Total: 15 - Psychiatric Psychiatric exam: Present: anxious, normal affect - Skin Skin exam: Present: dry, warm. Absent: cyanosis Internal Medicine - CN: Reslt - Labs CBC & Chem 7: 11/19/17 04:00 11/19/17 04:00 Labs: Short CBC 11/18/17 11/19/17 Range/Units 19:03 04:00 WBC 20.4 H (4.3-11.1) K/mcL Hgb 6.6 L 10.1 L D (11.5-15.4) g/dL Hct 25.0 L 34.6 L (35.3-44.9) % Plt Count 343 (140-400) K/mcL Neutrophils # 19.8 H (1.6-8.9) K/mcL BMP 11/18/17 11/19/17 18:44 04:00 Sodium 136 142 Potassium 4.3 4.2 Chloride 94 L 97 L Carbon Dioxide 40 H* 38 H BUN 18 18 Creatinine 0.32 L 0.39 L Glucose 146 H 153 H Calcium 8.5 L 8.6 - ABG Interpretation ABG results: ABG ABG pH 7.43 pH Units (7.32-7.45) 11/19/17 05:24 ABG pCO2 62 mmHg (35-45) H 11/19/17 05:24 ABG pO2 79 mmHg (85-104) L 11/19/17 05:24 ABG O2 Saturation 95 % (95-98) 11/19/17 05:24 - Impressions Impressions Head CT 11/18/17 12:07 IMPRESSION: No acute intracranial abnormality. D/ / 11/18/2017 17:14:26 Tavon Mead MD / Katlin Wyatt Interpreting Provider: Tavon Mead MD Abdomen/Pelvis CT 11/18/17 15:33 IMPRESSION: 1. No acute abdominopelvic abnormality. Specifically, no evidence of retroperitoneal hemorrhage. 2. Bilateral nonobstructing nephrolithiasis. 3. Cholelithiasis. 4. Sigmoid diverticulosis. D/ / Moe Plummer / Moe Plummer Interpreting Provider: Moe Plummer Consult Discharge Plan - Plan Referrals: Tripp Pena MD [Primary Care Provider] - Palliative Quality Palliative Quality: Screen for Code Status: Yes, Screen for Goals of Care: Yes, Screen for Pain: Yes, If Pain Regimen Started, Initiate Bowel Regimen: NA, Screen for Nausea/Vomitting: Yes Code Status: 11/18/17 12:15 Resuscitation Status: Active [RES] Routine Comment: Resuscitation Status: Full Code
[2017-11-19] MEDS: Pantoprazole 40 MG VIAL IVP SCH (16:29)
[2017-11-19] MEDS: Dexmedetomidine HCl 400 MCG/100 ML MLS IVC SCH (23:46)
[2017-11-20] MEDS: Ipratropium/Albuterol Neb 3 ML IH SCH ×6 (03:27→20:22)
[2017-11-20 04:50] LABS: Basophils % 0.1 %; Lymphocytes % 1.1 %; Mean Corpuscular HGB Conc 28.9 g/dL (31.6-35.5); Mean Platelet Volume 10.8 fL (9.4-12.4); Monocytes % 1.5 %; Nucleated Red Blood Cells 0.1 /100 WBC (0)
[2017-11-20 04:52] LABS: Hematocrit 35.7 % (35.3-44.9); Hemoglobin 10.3 g/dL (11.5-15.4); Immature Granulocytes % 0.9 % (0-4); Lymphocytes # 0.3 K/mcL (0.6-4.6); Mean Corpuscular Volume 79.9 fL (83.0-100.0); Monocytes # 0.4 K/mcL (0.0-1.3); Neutrophils # 24.6 K/mcL (1.6-8.9); Platelet Count 350 K/mcL (140-400); Red Blood Count 4.47 M/mcL (3.82-4.97); Red Cell Distribution Width 21.8 % (11.5-14.5); Segmented Neutrophils % 96.4 %
[2017-11-20 05:03] LABS: BUN/Creatinine Ratio 37 (6-26); Blood Urea Nitrogen 13 mg/dL (6-20); Calcium 8.8 mg/dL (8.6-10.3); Carbon Dioxide 38 mEq/L (23-29); Chloride 99 mEq/L (98-107); Glucose 127 mg/dL (70-105); Osmolality,Calculated 292 (280-300); Sodium 140 mEq/L (136-145); eGFR For African Americans > 60 (> 60); eGFR For Non-African Americans > 60 (> 60)
[2017-11-20] MEDS: Cefepime HCl 2,000 MG in Water for inj. (sterile) 20 ML 20 ML IVP SCH ×2 (05:20→18:15)
[2017-11-20] MEDS: Pantoprazole 40 MG VIAL IVP SCH ×2 (05:21→18:15)
[2017-11-20 05:43] LABS: Anisocytosis 2+ (Not Present); Hypochromasia Present (Not Present); Microcytosis Present (Not Present); Platelet Estimate Normal (Normal)
[2017-11-20 05:44] LABS: Ovalocytes 1+ (Not Present); Poikilocytosis 2+ (Not Present); Polychromasia 1+ (Not Present)
[2017-11-20] MEDS: Budesonide/Formoterol 160/4.5 MDI IH SCH ×3 (07:35→20:23)
--- NOTE | 2017-11-20 07:41 | Pulmonology Progress Note ---
<Nicholas Davidson - Last Filed: 11/20/17 07:48> Date of Encounter: 11/20/17 Time of Encounter: 07:39 Assessment and Plan (1) Acute and chronic respiratory failure with hypercapnia Current Visit: Yes Status: Acute Acute respiratory failure secondary to pneumonia and COPD exacerbation - Patient was successfully extubated; will be transferred out of the ICU - Clinical status appears to have improved - Denies having any shortness of breath this morning - Continue to monitor patient's clinical status (2) Pneumonia Current Visit: Yes Status: Acute Patients clinical picture is likely due to pneumonia and COPD exacerbation Chest x-ray obtained on 11/18/17 demonstrated the following: RLL airspace disease could represent PNA and there is a small pleural effusion. - White count this morning was 25.5 - Vancomycin 750 mg IV every 12 - Cefepime 2000 mg IV every 12 hours - Azithromycin 500 mg IV every 24 hours (3) COPD exacerbation Current Visit: Yes Status: Acute DuoNebs 3 mL inhaled every 4 scheduled - Symbicort 2 puffs inhaled BIDR - Solu-Medrol will be discontinued; will switch to 40 mg prednisone (4) Anemia Current Visit: No Status: Inactive Possibly secondary to chronic blood loss Patient initially presented with a low hemoglobin; received 1 unit of blood on arrival to the ICU -Hb stable at this time at 10.3 Qualifiers: Anemia type: unspecified type Qualified Code(s): D64.9 - Anemia, unspecified (5) DVT prophylaxis Current Visit: Yes Status: Acute SCDs Subjective Principal diagnosis: Acute respiratory failure Interval history: Patient was seen and examined at bedside this morning. Patient reports that she feels much better today than she did on admission. No problems since extubation. Patient was seen by palliative care yesterday. Per palliative consult note, patient confirmed that she wants to be full code and is okay with short-term intubation. Patient did report however that she does not want to have a tracheostomy. She identified her daughter as her medical power of state's attorney. She currently denies having any fever, chills, nausea, vomiting, shortness of breath, or chest pain. She is resting comfortably in bed and has no complaints at this time. Patient will be transferred out of the ICU today and will be kept on telemetry. Steroids will be decreased. Objective PUL Vital signs: Last Vital Signs Temp 97.7 F 11/20/17 04:38 Pulse 69 11/20/17 06:00 Resp 16 11/20/17 07:35 BP 111/65 11/20/17 06:00 Pulse Ox 98 11/20/17 07:35 General appearance: no acute distress Eyes: nonicteric ENT: oropharynx moist Neck: supple Effort: normal Auscultation: bilateral: diminished breath sounds Percussion: bilateral: not dull Tactile fremitus: bilateral: normal Cardiovascular: regular rate and rhythm Gastrointestinal: normoactive bowel sounds, non-distended Integumentary: normal Extremities: no cyanosis, no edema, no clubbing Musculoskeletal: no deformities, ROM normal normal mental status, non-focal exam mood appropriate, affect normal Results - Laboratory Findings CBC and BMP: 11/20/17 04:12 11/20/17 04:12 ABG ABG pH 7.43 pH Units (7.32-7.45) 11/19/17 05:24 ABG pCO2 62 mmHg (35-45) H 11/19/17 05:24 ABG pO2 79 mmHg (85-104) L 11/19/17 05:24 ABG O2 Saturation 95 % (95-98) 11/19/17 05:24 Abnormal lab findings: Abnormal lab results WBC 25.5 K/mcL (4.3-11.1) H 11/20/17 04:12 Hgb 10.3 g/dL (11.5-15.4) L 11/20/17 04:12 MCV 79.9 fL (83.0-100.0) L 11/20/17 04:12 MCH 23.0 pg (28.0-33.3) L 11/20/17 04:12 MCHC 28.9 g/dL (31.6-35.5) L 11/20/17 04:12 RDW 21.8 % (11.5-14.5) H 11/20/17 04:12 Neutrophils # 24.6 K/mcL (1.6-8.9) H 11/20/17 04:12 Lymphocytes # 0.3 K/mcL (0.6-4.6) L 11/20/17 04:12 Nucleated RBCs/100 WBC 0.1 /100 WBC (0) H 11/20/17 04:12 Polychromasia 1+ (Not Present) A 11/20/17 04:12 Hypochromasia Present (Not Present) A 11/20/17 04:12 Poikilocytosis 2+ (Not Present) A 11/20/17 04:12 Anisocytosis 2+ (Not Present) A 11/20/17 04:12 Microcytosis Present (Not Present) A 11/20/17 04:12 Ovalocytes 1+ (Not Present) A 11/20/17 04:12 ABG pCO2 62 mmHg (35-45) H 11/19/17 05:24 ABG pO2 79 mmHg (85-104) L 11/19/17 05:24 ABG HCO3 41 mEq/L (21-27) H 11/19/17 05:24 ABG Total CO2 42 mEq/L (20-26) H 11/19/17 05:24 ABG Base Excess 14 mEq/L (-2 to 3) H 11/19/17 05:24 Carbon Dioxide 38 mEq/L (23-29) H 11/20/17 04:12 Creatinine 0.35 mg/dL (0.60-1.20) L 11/20/17 04:12 BUN/Creatinine Ratio 37 (6-26) H 11/20/17 04:12 Glucose 127 mg/dL (70-105) H 11/20/17 04:12 POC Glucose 142 mg/dL (70-99) H 11/19/17 12:17 B-Natriuretic Peptide 175 pg/mL (Less than 100) H 11/18/17 12:41 Vancomycin Trough 13 mcg/mL (5-10) H 11/20/17 04:12 Human Metapneumovir PCR DETECTED (Not Detect) A 11/18/17 10:55 - Microbiology Findings Microbiology Findings: Microbiology, Last 48 Hours 11/18/17 15:28 Urine Culture - Preliminary Urine,[place] No growth. 11/18/17 10:55 Sputum Culture - Preliminary Sputum 11/18/17 12:41 Blood Culture - Preliminary Peripheral Venipuncture No growth. 11/18/17 15:28 Legionella Antigen - Final Urine,[place] Streptococcus pneumoniae Antigen (M - Final - Clinical Findings Intake & Output: Intake & Output 11/19/17 11/19/17 11/20/17 15:59 23:59 07:59 Intake Total 55 / 55 270 / 270 870 / 870 Output Total 425 / 425 1225 / 1225 975 / 975 Balance -370 / -370 -955 / -955 -105 / -105 Weight 54.3 kg 55.7 kg - VTE Documentation of Mechanical Device: Intermittent pneumatic compression device Consult Discharge Plan - Plan Referrals: Tripp Pena MD [Primary Care Provider] - <Lucien Garcia - Last Filed: 11/20/17 09:23> Date of Encounter: 11/20/17 Objective PUL Vital signs: Last Vital Signs Temp 98.0 F 11/20/17 08:02 Pulse 101 11/20/17 08:00 Resp 22 11/20/17 08:00 BP 128/65 11/20/17 08:00 Pulse Ox 96 11/20/17 08:00 Results - Laboratory Findings CBC and BMP: 11/20/17 04:12 11/20/17 04:12 ABG ABG pH 7.43 pH Units (7.32-7.45) 11/19/17 05:24 ABG pCO2 62 mmHg (35-45) H 11/19/17 05:24 ABG pO2 79 mmHg (85-104) L 11/19/17 05:24 ABG O2 Saturation 95 % (95-98) 11/19/17 05:24 Abnormal lab findings: Abnormal lab results WBC 25.5 K/mcL (4.3-11.1) H 11/20/17 04:12 Hgb 10.3 g/dL (11.5-15.4) L 11/20/17 04:12 MCV 79.9 fL (83.0-100.0) L 11/20/17 04:12 MCH 23.0 pg (28.0-33.3) L 11/20/17 04:12 MCHC 28.9 g/dL (31.6-35.5) L 11/20/17 04:12 RDW 21.8 % (11.5-14.5) H 11/20/17 04:12 Neutrophils # 24.6 K/mcL (1.6-8.9) H 11/20/17 04:12 Lymphocytes # 0.3 K/mcL (0.6-4.6) L 11/20/17 04:12 Nucleated RBCs/100 WBC 0.1 /100 WBC (0) H 11/20/17 04:12 Polychromasia 1+ (Not Present) A 11/20/17 04:12 Hypochromasia Present (Not Present) A 11/20/17 04:12 Poikilocytosis 2+ (Not Present) A 11/20/17 04:12 Anisocytosis 2+ (Not Present) A 11/20/17 04:12 Microcytosis Present (Not Present) A 11/20/17 04:12 Ovalocytes 1+ (Not Present) A 11/20/17 04:12 ABG pCO2 62 mmHg (35-45) H 11/19/17 05:24 ABG pO2 79 mmHg (85-104) L 11/19/17 05:24 ABG HCO3 41 mEq/L (21-27) H 11/19/17 05:24 ABG Total CO2 42 mEq/L (20-26) H 11/19/17 05:24 ABG Base Excess 14 mEq/L (-2 to 3) H 11/19/17 05:24 Carbon Dioxide 38 mEq/L (23-29) H 11/20/17 04:12 Creatinine 0.35 mg/dL (0.60-1.20) L 11/20/17 04:12 BUN/Creatinine Ratio 37 (6-26) H 11/20/17 04:12 Glucose 127 mg/dL (70-105) H 11/20/17 04:12 POC Glucose 142 mg/dL (70-99) H 11/19/17 12:17 B-Natriuretic Peptide 175 pg/mL (Less than 100) H 11/18/17 12:41 Vancomycin Trough 13 mcg/mL (5-10) H 11/20/17 04:12 Human Metapneumovir PCR DETECTED (Not Detect) A 11/18/17 10:55 - Microbiology Findings Microbiology Findings: Microbiology, Last 48 Hours 11/18/17 15:28 Urine Culture - Preliminary Urine,[place] No growth. 11/18/17 10:55 Sputum Culture - Preliminary Sputum 11/18/17 12:41 Blood Culture - Preliminary Peripheral Venipuncture No growth. 11/18/17 15:28 Legionella Antigen - Final Urine,[place] Streptococcus pneumoniae Antigen (M - Final - Clinical Findings Intake & Output: Intake & Output 11/19/17 11/20/17 11/20/17 23:59 07:59 15:59 Intake Total 270 / 270 870 / 870 Output Total 1225 / 1225 975 / 975 125 / 125 Balance -955 / -955 -105 / -105 -125 / -125 Weight 55.7 kg - Attending Attestation I examined this patient and my medical decision-making was reviewed with the Resident Physician. I agree with the documented findings, disposition and treatment plan as described except to the extent set forth below. Patient seen and examined. Labs, radiology, chart personally reviewed. Agree with resident's history and physical, assessment, plan with following comments: PEARL DIGGER: Patient follows commands, Pulmonary: Acceptable oxygenation and ventilation and patient is stable to be transferred to the floor to continue bronchodilators and empiric antibiotics with taper systemic steroid Cardiovascular: stable GI: Nutrition per dietary and GI prophylaxis per routine Heme: DVT prophylaxis per routine ID: Continue antibiotics and plan to de-escalation Renal; urine out put and renal funtion reviewed Endorcine: blood glucose is monitored Lines: all lines checked and no evidence of infections Skin: skin care to prevent pressure ulcers per nursing routine care
[2017-11-20] MEDS ORDERED: *HR* OxyCODONE Immed Rel 5 MG TABLET PO PRN (07:59)
[2017-11-20] MEDS ORDERED: Naloxone 0.4 MG/ML INJ IVP PRN (07:59)
[2017-11-20] MEDS ORDERED: predniSONE 20 MG TABLET PO SCH (09:00)
[2017-11-20] MEDS: predniSONE 20 MG TABLET PO SCH (09:14)
--- NOTE | 2017-11-20 09:26 | Palliative Progress Note ---
Date of Encounter: 11/20/17 Time of Encounter: 08:50 - Assessment and plan (1) Nausea Current Visit: Yes Status: Acute Assessment and plan: Patient denies nausea during assessment. (2) Acute and chronic respiratory failure with hypercapnia Current Visit: Yes Status: Acute (3) COPD exacerbation Current Visit: Yes Status: Acute Assessment and plan: Patient remains oxygen dependent. Patient on 4L O2 per NC. No complaints of shortness of breath during assessment. Continue oxygen therapy, duo nebs, and symbicort. (4) Dyspnea Current Visit: No Status: Chronic Assessment and plan: Denies dypsnea. Continue Oxygen therapy. Qualifiers: Qualified Code(s): R06.00 - Dyspnea, unspecified (5) Goals of care, counseling/discussion Current Visit: No Status: Acute Assessment and plan: CODE STATUS has been established as full code. MPOA has been established. New MPOA forms completed listing daughter Noelle as Primary and Daughter Rose is first alternative. Will send new form to medical record to be scanned into chart. Plan to return to [facility] with [facility] at discharge. Palliative care appreciates the consultation. All needs have been met; please re-consult if needed. - Time Spent With Patient Total time spent is greater than 50% in coordination of care (as documented) at patient's floor/unit and/or counseling patient: - Subjective Interval history: Patient resting in bed with eyes closed. No family at bedside. No complaints of pain, nausea, difficulty urinating, difficulty with bowel movements, or anxiety during assessment. Patient alert and oriented. Explained concern over conflicting MPOA forms, patient understood. Kevin DONIS visited patient alongside senior grant writer. New MPOA forms completed. Evaluated if patient had any concerns or needs; patient denies. - Constitutional Vitals: Abnormal lab results WBC 25.5 K/mcL (4.3-11.1) H 11/20/17 04:12 Hgb 10.3 g/dL (11.5-15.4) L 11/20/17 04:12 MCV 79.9 fL (83.0-100.0) L 11/20/17 04:12 MCH 23.0 pg (28.0-33.3) L 11/20/17 04:12 MCHC 28.9 g/dL (31.6-35.5) L 11/20/17 04:12 RDW 21.8 % (11.5-14.5) H 11/20/17 04:12 Neutrophils # 24.6 K/mcL (1.6-8.9) H 11/20/17 04:12 Lymphocytes # 0.3 K/mcL (0.6-4.6) L 11/20/17 04:12 Nucleated RBCs/100 WBC 0.1 /100 WBC (0) H 11/20/17 04:12 Polychromasia 1+ (Not Present) A 11/20/17 04:12 Hypochromasia Present (Not Present) A 11/20/17 04:12 Poikilocytosis 2+ (Not Present) A 11/20/17 04:12 Anisocytosis 2+ (Not Present) A 11/20/17 04:12 Microcytosis Present (Not Present) A 11/20/17 04:12 Ovalocytes 1+ (Not Present) A 11/20/17 04:12 ABG pCO2 62 mmHg (35-45) H 11/19/17 05:24 ABG pO2 79 mmHg (85-104) L 11/19/17 05:24 ABG HCO3 41 mEq/L (21-27) H 11/19/17 05:24 ABG Total CO2 42 mEq/L (20-26) H 11/19/17 05:24 ABG Base Excess 14 mEq/L (-2 to 3) H 11/19/17 05:24 Carbon Dioxide 38 mEq/L (23-29) H 11/20/17 04:12 Creatinine 0.35 mg/dL (0.60-1.20) L 11/20/17 04:12 BUN/Creatinine Ratio 37 (6-26) H 11/20/17 04:12 Glucose 127 mg/dL (70-105) H 11/20/17 04:12 POC Glucose 142 mg/dL (70-99) H 11/19/17 12:17 B-Natriuretic Peptide 175 pg/mL (Less than 100) H 11/18/17 12:41 Vancomycin Trough 13 mcg/mL (5-10) H 11/20/17 04:12 Human Metapneumovir PCR DETECTED (Not Detect) A 11/18/17 10:55 General appearance: Present: cooperative, no acute distress - Head Head exam: Present: normal inspection, normocephalic - Expanded Head Exam Head exam: Absent: raccoon eyes - Eye Eye exam: Present: normal appearance, PERRL. Absent: nystagmus, periorbital swelling, periorbital tenderness Pupils: Present: normal accommodation, PERRL - ENT ENT exam: Present: mucous membranes moist, normal external ear exam - Expanded ENT Exam Throat exam: Present: normal inspection - Neck Neck exam: Present: full ROM, normal inspection - Respiratory Respiratory exam: Present: rhonchi. Absent: accessory muscle use, respiratory distress - Cardiovascular Cardiovascular exam: Present: irregular rhythm, +S1, +S2 - Expanded Cardiovascular Exam Peripheral pulses: 2+: Carotid (L) PM, Carotid (R) PM, Dorsalis Pedis (L) PM, Dorsalis Pedis (R) PM - GI/Abdominal GI/Abdominal exam: Present: normal bowel sounds, soft. Absent: tenderness - Rectal Rectal exam: Present: deferred - Additional comments: Sarkar catheter remains intact. Patient denies having sarkar at detention. Nursing reports plan to discontinue sarkar today. - Extremities Exam Extremities exam: Present: full ROM, normal inspection. Absent: pedal edema - Back Exam Back exam: Present: full ROM, normal inspection. Absent: rash noted, tenderness - Neurological Exam Neurological exam: Present: alert, oriented X3, no focal deficits - Expanded Neurological Exam Coma Scale Eye Opening: Spontaneous Coma Scale Motor Response: Obeys Commands Coma Scale Verbal Response: Oriented Coma Scale Total: 15 - Psychiatric Psychiatric exam: Present: normal affect, normal mood. Absent: anxious - Skin Skin exam: Present: dry, intact, warm Palliative Quality Palliative Quality: Screen for Code Status: Yes, Screen for Goals of Care: Yes, Screen for Pain: Yes, If Pain Regimen Started, Initiate Bowel Regimen: NA, Screen for Nausea/Vomitting: Yes Code Status: 11/18/17 12:15 Resuscitation Status: Active [RES] Routine Comment: Resuscitation Status: Full Code - Labs CBC & Chem 7: 11/20/17 04:12 11/20/17 04:12 Labs: Laboratory Results - last 24 hr 11/19/17 11/20/17 11/20/17 12:17 04:12 04:12 WBC 25.5 H RBC 4.47 Hgb 10.3 L Hct 35.7 MCV 79.9 L MCH 23.0 L MCHC 28.9 L RDW 21.8 H Plt Count 350 MPV 10.8 Immature Gran % 0.9 Seg Neutrophils % 96.4 Lymphocytes % 1.1 Monocytes % 1.5 Eosinophils % 0.0 Basophils % 0.1 Neutrophils # 24.6 H Lymphocytes # 0.3 L Monocytes # 0.4 Eosinophils # 0.0 Basophils # 0.0 Nucleated RBCs/100 WBC 0.1 H Platelet Estimate Normal Polychromasia 1+ A Hypochromasia Present A Poikilocytosis 2+ A Anisocytosis 2+ A Microcytosis Present A Ovalocytes 1+ A Sodium Potassium Chloride Carbon Dioxide BUN Creatinine Est GFR ( Amer) Est GFR (Non-Af Amer) BUN/Creatinine Ratio Glucose POC Glucose 142 H Calculated Osmolality Calcium Vancomycin Trough 13 H 11/20/17 04:12 WBC RBC Hgb Hct MCV MCH MCHC RDW Plt Count MPV Immature Gran % Seg Neutrophils % Lymphocytes % Monocytes % Eosinophils % Basophils % Neutrophils # Lymphocytes # Monocytes # Eosinophils # Basophils # Nucleated RBCs/100 WBC Platelet Estimate Polychromasia Hypochromasia Poikilocytosis Anisocytosis Microcytosis Ovalocytes Sodium 140 Potassium 4.0 Chloride 99 Carbon Dioxide 38 H BUN 13 Creatinine 0.35 L Est GFR ( Amer) > 60 Est GFR (Non-Af Amer) > 60 BUN/Creatinine Ratio 37 H Glucose 127 H POC Glucose Calculated Osmolality 292 Calcium 8.8 Vancomycin Trough - ABG Interpretation ABG results: ABG ABG pH 7.43 pH Units (7.32-7.45) 11/19/17 05:24 ABG pCO2 62 mmHg (35-45) H 11/19/17 05:24 ABG pO2 79 mmHg (85-104) L 11/19/17 05:24 ABG O2 Saturation 95 % (95-98) 11/19/17 05:24 Consult Discharge Plan - Plan Referrals: Tripp Pena MD [Primary Care Provider] -
[2017-11-20] MEDS: Azithromycin 500 MG in D5% in Water 250 ML IVPB SCH (14:43)
[2017-11-20] MEDS: Pantoprazole 40 MG in 0.9 % Sodium Chloride Mini Bag 100 ML IVC SCH (20:38)
[2017-11-21] MEDS: Ipratropium/Albuterol Neb 3 ML IH SCH ×6 (00:11→20:33)
[2017-11-21] MEDS: Cefepime HCl 2,000 MG in Water for inj. (sterile) 20 ML 20 ML IVP SCH (05:38)
[2017-11-21] MEDS: Pantoprazole 40 MG VIAL IVP SCH ×2 (05:39→16:47)
[2017-11-21] MEDS: Budesonide/Formoterol 160/4.5 MDI IH SCH ×2 (07:57→20:33)
[2017-11-21] MEDS: predniSONE 20 MG TABLET PO SCH (09:21)
[2017-11-21] MEDS ORDERED: levoFLOXacin 750 MG TABLET PO SCH (13:45)
[2017-11-21] MEDS: Levofloxacin 750 MG/150 ML 750 MG/150 ML BAG IVPB SCH (16:46)
[2017-11-21 17:18] LABS: ABG Base Excess 14 mEq/L (-2 to 3); ABG HCO3 49 mEq/L (21-27); ABG Oxygen Saturation 94 % (95-98); ABG PCO2 132 mmHg (35-45); ABG PH 7.18 pH Units (7.32-7.45); ABG PO2 100 mmHg (85-104); ABG TCO2 53 mEq/L (20-26)
[2017-11-21] MEDS: Azithromycin 500 MG in D5% in Water 250 ML IVPB SCH (18:27)
--- NOTE | 2017-11-21 18:53 | Internal Med Progress Note ---
Date of Encounter: 11/21/17 Time of Encounter: 11:00 - Assessment and plan (1) Acute and chronic respiratory failure with hypercapnia Current Visit: Yes Status: Acute Assessment and plan: ABG pH 7.1 and pCO2 132 Patient placed on BiPAP (2) COPD exacerbation Current Visit: Yes Status: Acute Assessment and plan: Will continue dual nebs and prednisone (3) Pneumonia Current Visit: Yes Status: Acute Assessment and plan: De-escalate antibiotics to IV Levaquin Qualifiers: Lung location: unspecified part of lung Qualified Code(s): J18.9 - Pneumonia, unspecified organism (4) Goals of care, counseling/discussion Current Visit: No Status: Acute Assessment and plan: Patient will be discharged to [facility] with hospice once medically stable - Time Spent With Patient Total time spent is greater than 50% in coordination of care (as documented) at patient's floor/unit and/or counseling patient: - Subjective Interval history: Patient this afternoon developed acute on chronic hypercapnic respiratory failure and BiPAP was initiated - Constitutional Vitals: Temp Pulse Resp BP Pulse Ox 98.3 F 102 30 111/71 93 11/21/17 17:02 11/21/17 17:02 11/21/17 17:25 11/21/17 17:02 11/21/17 17:25 General appearance: Present: mild distress - Respiratory Respiratory exam: Present: CTAB. Absent: accessory muscle use, rales, rhonchi, wheezes - Cardiovascular Cardiovascular exam: Present: RRR, +S1, +S2. Absent: diastolic murmur, gallop, rubs, systolic murmur Internal Medicine: Result - Labs CBC & Chem 7: 11/20/17 04:12 11/20/17 04:12 - ABG Interpretation ABG results: ABG ABG pH 7.18 pH Units (7.32-7.45) L* 11/21/17 17:08 ABG pCO2 132 mmHg (35-45) H* 11/21/17 17:08 ABG pO2 100 mmHg (85-104) 11/21/17 17:08 ABG O2 Saturation 94 % (95-98) L 11/21/17 17:08 - VTE Documentation of Mechanical Device: Intermittent pneumatic compression device Consult Discharge Plan - Plan Referrals: Tripp Pena MD [Primary Care Provider] -
[2017-11-21 20:13] LABS: ABG Base Excess 18 mEq/L (-2 to 3); ABG HCO3 51 mEq/L (21-27); ABG Oxygen Saturation 92 % (95-98); ABG PCO2 107 mmHg (35-45); ABG PH 7.28 pH Units (7.32-7.45); ABG PO2 79 mmHg (85-104); ABG TCO2 54 mEq/L (20-26); Blood Gas Modality NIV; Blood Gas PEEP 7 cm H2O
[2017-11-22] MEDS: Ipratropium/Albuterol Neb 3 ML IH SCH ×6 (00:06→19:57)
[2017-11-22] MEDS: Pantoprazole 40 MG VIAL IVP SCH ×2 (05:50→17:11)
[2017-11-22] MEDS: Budesonide/Formoterol 160/4.5 MDI IH SCH ×2 (07:29→19:57)
[2017-11-22] MEDS: predniSONE 20 MG TABLET PO SCH (08:38)
[2017-11-22 09:57] LABS: Nucleated Red Blood Cells 0.1 /100 WBC (0)
[2017-11-22 09:58] LABS: Hematocrit 40.8 % (35.3-44.9); Hemoglobin 11.1 g/dL (11.5-15.4); Mean Corpuscular HGB Conc 27.2 g/dL (31.6-35.5); Mean Corpuscular Hemoglobin 22.7 pg (28.0-33.3); Mean Corpuscular Volume 83.4 fL (83.0-100.0); Mean Platelet Volume 10.8 fL (9.4-12.4); Monocytes # 0.8 K/mcL (0.0-1.3); Platelet Count 309 K/mcL (140-400); Red Blood Count 4.89 M/mcL (3.82-4.97); Red Cell Distribution Width 24.3 % (11.5-14.5)
[2017-11-22 10:24] LABS: BUN/Creatinine Ratio 53 (6-26); Blood Urea Nitrogen 16 mg/dL (6-20); Calcium 8.9 mg/dL (8.6-10.3); Carbon Dioxide > 45 mEq/L (23-29); Chloride 92 mEq/L (98-107); Glucose 143 mg/dL (70-105); Osmolality,Calculated 294 (280-300); Sodium 140 mEq/L (136-145); eGFR For African Americans > 60 (> 60); eGFR For Non-African Americans > 60 (> 60)
[2017-11-22 10:52] LABS: ABG Base Excess 19 mEq/L (-2 to 3); ABG HCO3 52 mEq/L (21-27); ABG Oxygen Saturation 71 % (95-98); ABG PCO2 102 mmHg (35-45); ABG PH 7.31 pH Units (7.32-7.45); ABG PO2 44 mmHg (85-104); ABG TCO2 55 mEq/L (20-26)
[2017-11-22 11:09] LABS: Hypochromasia Present (Not Present); Lymphocytes # 1.8 K/mcL (0.6-4.6); Neutrophils # 23.3 K/mcL (1.6-8.9); Platelet Estimate Normal (Normal)
[2017-11-22 11:10] LABS: Anisocytosis 2+ (Not Present)
[2017-11-22 11:11] LABS: Stomatocytes 1+ (Not Present)
[2017-11-22] MEDS: Levofloxacin 750 MG/150 ML 750 MG/150 ML BAG IVPB SCH (17:11)
--- NOTE | 2017-11-22 18:58 | Internal Med Progress Note ---
Date of Encounter: 11/22/17 Time of Encounter: 11:00 - Assessment and plan (1) Acute and chronic respiratory failure with hypercapnia Current Visit: Yes Status: Acute Assessment and plan: Patient without much improvement in acute on chronic hypercapnic respiratory failure and continues to require BiPAP Patient was extubated on 11/20/17 transferred from the ICU to medical floor plans for palliative/hospice care at [facility] but patient still a full code (2) COPD exacerbation Current Visit: Yes Status: Acute Assessment and plan: Will continue dual nebs and prednisone (3) Pneumonia Current Visit: Yes Status: Acute Assessment and plan: IV antibiotics were De-escalate to IV Levaquin Will consider broadening coverage Qualifiers: Lung location: unspecified part of lung Qualified Code(s): J18.9 - Pneumonia, unspecified organism (4) Goals of care, counseling/discussion Current Visit: No Status: Acute Assessment and plan: Patient will be discharged to [facility] with hospice once medically stable - Time Spent With Patient Total time spent is greater than 50% in coordination of care (as documented) at patient's floor/unit and/or counseling patient: - Subjective Interval history: Patient without much improvement in acute on chronic hypercapnic respiratory failure and continues to require BiPAP Patient was extubated on 11/20/17 transferred from the ICU to medical floor plans for palliative/hospice care at [facility] but patient still a full code - Constitutional Vitals: Temp Pulse Resp BP Pulse Ox 98.3 F 103 18 123/74 95 11/22/17 16:21 11/22/17 16:21 11/22/17 16:21 11/22/17 16:21 11/22/17 16:21 General appearance: Present: mild distress, no acute distress - Respiratory Respiratory exam: Present: CTAB. Absent: accessory muscle use, rales, rhonchi, wheezes - Cardiovascular Cardiovascular exam: Present: RRR, +S1, +S2. Absent: diastolic murmur, gallop, rubs, systolic murmur Internal Medicine: Result - Labs CBC & Chem 7: 11/22/17 09:25 11/22/17 09:25 Labs: Short CBC 11/22/17 Range/Units 09:25 WBC 25.9 H (4.3-11.1) K/mcL Hgb 11.1 L (11.5-15.4) g/dL Hct 40.8 (35.3-44.9) % Plt Count 309 (140-400) K/mcL Neutrophils # 23.3 H (1.6-8.9) K/mcL BMP 11/22/17 09:25 Sodium 140 Potassium 4.0 Chloride 92 L Carbon Dioxide > 45 H* BUN 16 Creatinine 0.30 L Glucose 143 H Calcium 8.9 - ABG Interpretation ABG results: ABG ABG pH 7.31 pH Units (7.32-7.45) L 11/22/17 10:27 ABG pCO2 102 mmHg (35-45) H* 11/22/17 10:27 ABG pO2 44 mmHg (85-104) L* 11/22/17 10:27 ABG O2 Saturation 71 % (95-98) L 11/22/17 10:27 - VTE Documentation of Mechanical Device: Intermittent pneumatic compression device Consult Discharge Plan - Plan Referrals: Tripp Pena MD [Primary Care Provider] -
[2017-11-22 20:08] LABS: Adenovirus F 40/41 PCR Not detected (Not detect); Astrovirus PCR Not detected (Not detect); C.difficile Toxin A/B by PCR See reflex test (Not detect); Campylobacter by PCR Not detected (Not detect); Cryptosporidium by PCR Not detected (Not detect); Cyclospora cayetanensis PCR Not detected (Not detect); E. coli O157 by PCR Not detected (Not detect); Entamoeba histolytica PCR Not detected (Not detect); Enteroaggregative E.coli(EAEC) Not detected (Not detect); Enteropathogenic E.coli(EPEC) Not detected (Not detect); Enterotoxigenic E.coli (ETEC) Not detected (Not detect); Giardia lamblia PCR Not detected (Not detect); Norovirus GI/GII PCR Not detected (Not detect); Plesiomonas shigelloides PCR Not detected (Not detect); Rotavirus A PCR Not detected (Not detect); Salmonella PCR Not detected (Not detect); Sapovirus PCR Not detected (Not detect); Shig/EnteroinvasiveE coli EIEC Not detected (Not detect); Shigalike tox-prod E coli STEC Not detected (Not detect); Vibrio PCR Not detected (Not detect); Vibrio cholerae PCR Not detected (Not detect); Yersinia enterocolitica PCR Not detected (Not detect)
[2017-11-23] MEDS: Ipratropium/Albuterol Neb 3 ML IH SCH ×7 (00:10→23:31)
[2017-11-23] MEDS: metroNIDAZOLE 500 MG TABLET PO SCH ×3 (03:38→20:00)
[2017-11-23] MEDS: Pantoprazole 40 MG VIAL IVP SCH ×2 (05:03→18:34)
[2017-11-23] MEDS: Budesonide/Formoterol 160/4.5 MDI IH SCH ×2 (07:46→20:22)
[2017-11-23] MEDS: predniSONE 20 MG TABLET PO SCH (09:29)
[2017-11-23 10:05] LABS: Basophils % 0.1 %; Eosinophils % 0.2 %; Lymphocytes % 5.2 %; Mean Corpuscular Hemoglobin 22.6 pg (28.0-33.3); Mean Platelet Volume 10.9 fL (9.4-12.4)
[2017-11-23 10:06] LABS: Eosinophils # 0.1 K/mcL (0.0-0.6); Hematocrit 38.2 % (35.3-44.9); Hemoglobin 10.6 g/dL (11.5-15.4); Immature Granulocytes % 0.7 % (0-4); Lymphocytes # 1.2 K/mcL (0.6-4.6); Mean Corpuscular HGB Conc 27.7 g/dL (31.6-35.5); Mean Corpuscular Volume 81.6 fL (83.0-100.0); Monocytes # 0.7 K/mcL (0.0-1.3); Monocytes % 2.8 %; Neutrophils # 21.1 K/mcL (1.6-8.9); Platelet Count 268 K/mcL (140-400); Red Blood Count 4.68 M/mcL (3.82-4.97); Red Cell Distribution Width 24.5 % (11.5-14.5)
[2017-11-23 10:16] LABS: BUN/Creatinine Ratio 21 (6-26); Blood Urea Nitrogen 7 mg/dL (6-20); Calcium 8.6 mg/dL (8.6-10.3); Carbon Dioxide > 45 mEq/L (23-29); Chloride 89 mEq/L (98-107); Glucose 159 mg/dL (70-105); Osmolality,Calculated 289 (280-300); Potassium 3.8 mEq/L (3.5-5.1); Sodium 139 mEq/L (136-145); eGFR For African Americans > 60 (> 60); eGFR For Non-African Americans > 60 (> 60)
[2017-11-23 10:50] LABS: Anisocytosis 1+ (Not Present); Platelet Estimate Normal (Normal)
[2017-11-23 10:56] LABS: ABG Base Excess 21 mEq/L (-2 to 3); ABG HCO3 52 mEq/L (21-27); ABG Oxygen Saturation 97 % (95-98); ABG PCO2 101 mmHg (35-45); ABG PH 7.33 pH Units (7.32-7.45); ABG PO2 108 mmHg (85-104); ABG TCO2 56 mEq/L (20-26)
[2017-11-23] MEDS: Vancomycin Oral Soln 250 MG/5 ML UDC PO SCH ×4 (11:19→21:07)
--- NOTE | 2017-11-23 11:48 | Pulmonology Progress Note ---
Date of Encounter: 11/23/17 Time of Encounter: 16:00 Assessment and Plan (1) Acute and chronic respiratory failure with hypercapnia Current Visit: Yes Status: Acute I have explained to the patient with her advanced and terminal COPD the only treatment is to have lung transplant, however she is not candidate due to her comorbidities and reviewed ABG result and patient is very well compensated and advised primary team has longus patient clinically has no evidence of CO2 narcosis then no need for repeating ABG. Continue noninvasive ventilation and highly recommend palliative care to have another discussion with the patient because if she deteriorate she will need mechanical invasive ventilation and patient she might need tracheostomy and she does not want to go that route. Please call for any questions. Subjective Principal diagnosis: Acute respiratory failure Interval history: Patient has been having dyspnea and she has been on noninvasive ventilation but she denies any complaints now. Objective PUL Vital signs: Last Vital Signs Temp 97.5 F L 11/23/17 11:16 Pulse 105 11/23/17 11:16 Resp 16 11/23/17 11:16 BP 98/64 11/23/17 11:16 Pulse Ox 92 11/23/17 11:16 General appearance: no acute distress Eyes: nonicteric ENT: oropharynx dry Neck: supple Effort: mildly labored Auscultation: bilateral: diminished breath sounds Percussion: bilateral: not dull Cardiovascular: regular rate and rhythm Gastrointestinal: normoactive bowel sounds, non-distended Extremities: no cyanosis normal mental status, non-focal exam depressed Results - Laboratory Findings CBC and BMP: 11/23/17 09:34 11/23/17 09:34 ABG ABG pH 7.33 pH Units (7.32-7.45) 11/23/17 10:50 ABG pCO2 101 mmHg (35-45) H* 11/23/17 10:50 ABG pO2 108 mmHg (85-104) H 11/23/17 10:50 ABG O2 Saturation 97 % (95-98) 11/23/17 10:50 Abnormal lab findings: Abnormal lab results WBC 23.2 K/mcL (4.3-11.1) H 11/23/17 09:34 Hgb 10.6 g/dL (11.5-15.4) L 11/23/17 09:34 MCV 81.6 fL (83.0-100.0) L 11/23/17 09:34 MCH 22.6 pg (28.0-33.3) L 11/23/17 09:34 MCHC 27.7 g/dL (31.6-35.5) L 11/23/17 09:34 RDW 24.5 % (11.5-14.5) H 11/23/17 09:34 Neutrophils # 21.1 K/mcL (1.6-8.9) H 11/23/17 09:34 Nucleated RBCs/100 WBC 0.1 /100 WBC (0) H 11/22/17 09:25 Polychromasia 1+ (Not Present) A 11/20/17 04:12 Hypochromasia Present (Not Present) A 11/22/17 09:25 Poikilocytosis 2+ (Not Present) A 11/20/17 04:12 Anisocytosis 1+ (Not Present) A 11/23/17 09:34 Microcytosis Present (Not Present) A 11/20/17 04:12 Ovalocytes 1+ (Not Present) A 11/20/17 04:12 Stomatocytes 1+ (Not Present) A 11/22/17 09:25 ABG pCO2 101 mmHg (35-45) H* 11/23/17 10:50 ABG pO2 108 mmHg (85-104) H 11/23/17 10:50 ABG HCO3 52 mEq/L (21-27) H 11/23/17 10:50 ABG Total CO2 56 mEq/L (20-26) H 11/23/17 10:50 ABG Base Excess 21 mEq/L (-2 to 3) H 11/23/17 10:50 Chloride 89 mEq/L (98-107) L 11/23/17 09:34 Carbon Dioxide > 45 mEq/L (23-29) H* 11/23/17 09:34 Creatinine 0.33 mg/dL (0.60-1.20) L 11/23/17 09:34 Glucose 159 mg/dL (70-105) H 11/23/17 09:34 POC Glucose 142 mg/dL (70-99) H 11/19/17 12:17 B-Natriuretic Peptide 175 pg/mL (Less than 100) H 11/18/17 12:41 Stl C. diff Tox A/B PCR See reflex test (Not detect) A 11/22/17 15:50 Human Metapneumovir PCR DETECTED (Not Detect) A 11/18/17 10:55 - Microbiology Findings Microbiology Findings: Microbiology, Last 48 Hours 11/18/17 10:55 Sputum Culture - Final Sputum 11/18/17 15:28 Urine Culture - Final Urine,[place] No growth. - Clinical Findings Intake & Output: Intake & Output 11/22/17 11/23/17 11/23/17 23:59 07:59 15:59 Intake Total 0 / 0 0 / 0 550 / 550 Output Total 400 / 400 600 / 600 700 / 700 Balance -400 / -400 -600 / -600 -150 / -150 - VTE Documentation of Mechanical Device: Intermittent pneumatic compression device Consult Discharge Plan - Plan Referrals: Tripp Pena MD [Primary Care Provider] -
[2017-11-23 13:38] LABS: ABG Base Excess 23 mEq/L (-2 to 3); ABG HCO3 54 mEq/L (21-27); ABG Oxygen Saturation 95 % (95-98); ABG PCO2 104 mmHg (35-45); ABG PH 7.33 pH Units (7.32-7.45); ABG PO2 87 mmHg (85-104); ABG TCO2 58 mEq/L (20-26)
[2017-11-23] MEDS: Levofloxacin 750 MG/150 ML 750 MG/150 ML BAG IVPB SCH (18:32)
--- NOTE | 2017-11-23 19:22 | Internal Med Progress Note ---
Date of Encounter: 11/23/17 Time of Encounter: 11:00 - Assessment and plan (1) Acute and chronic respiratory failure with hypercapnia Current Visit: Yes Status: Acute Assessment and plan: Patient without much improvement in acute on chronic hypercapnic respiratory failure and continues to require BiPAP Patient was extubated on 11/20/17 transferred from the ICU to medical floor plans for palliative/hospice care at [facility] but patient still a full code Pulmonology was re-consulted on 11/23/17 and appreciate recommendations (2) COPD exacerbation Current Visit: Yes Status: Acute Assessment and plan: Will continue dual nebs and prednisone (3) Pneumonia Current Visit: Yes Status: Acute Assessment and plan: Continue IV Levaquin Qualifiers: Lung location: unspecified part of lung Qualified Code(s): J18.9 - Pneumonia, unspecified organism (4) Goals of care, counseling/discussion Current Visit: No Status: Acute Assessment and plan: Patient will be discharged to [facility] with hospice once medically stable Pulmonology consulted and will discuss goals of care with patient - Time Spent With Patient Total time spent is greater than 50% in coordination of care (as documented) at patient's floor/unit and/or counseling patient: - Subjective Interval history: Patient without much improvement in acute on chronic hypercapnic respiratory failure and continues to require BiPAP Patient was extubated on 11/20/17 transferred from the ICU to medical floor plans for palliative/hospice care at [facility] but patient still a full code Pulmonology has been re-consulted and appreciate recommendations - Constitutional Vitals: Temp Pulse Resp BP Pulse Ox 97.5 F L 105 16 98/64 94 11/23/17 11:16 11/23/17 11:16 11/23/17 15:54 11/23/17 11:16 11/23/17 15:54 General appearance: Present: mild distress, no acute distress - Respiratory Respiratory exam: Present: CTAB. Absent: accessory muscle use, rales, rhonchi, wheezes - Cardiovascular Cardiovascular exam: Present: RRR, +S1, +S2. Absent: diastolic murmur, gallop, rubs, systolic murmur Internal Medicine: Result - Labs CBC & Chem 7: 11/23/17 09:34 11/23/17 09:34 Labs: Short CBC 11/23/17 Range/Units 09:34 WBC 23.2 H (4.3-11.1) K/mcL Hgb 10.6 L (11.5-15.4) g/dL Hct 38.2 (35.3-44.9) % Plt Count 268 (140-400) K/mcL Neutrophils # 21.1 H (1.6-8.9) K/mcL BMP 11/23/17 09:34 Sodium 139 Potassium 3.8 Chloride 89 L Carbon Dioxide > 45 H* BUN 7 Creatinine 0.33 L Glucose 159 H Calcium 8.6 - ABG Interpretation ABG results: ABG ABG pH 7.33 pH Units (7.32-7.45) 11/23/17 13:32 ABG pCO2 104 mmHg (35-45) H* 11/23/17 13:32 ABG pO2 87 mmHg (85-104) 11/23/17 13:32 ABG O2 Saturation 95 % (95-98) 11/23/17 13:32 - Impressions Impressions Chest X-Ray 11/23/17 11:10 IMPRESSION: 1. New mild left basilar atelectasis versus pneumonia. 2. COPD. D/ / Jeffrey Gonzalez MD / Jeffrey Gonzalez MD Interpreting Provider: Jeffrey Gonzalez MD - VTE Documentation of Mechanical Device: Intermittent pneumatic compression device Consult Discharge Plan - Plan Referrals: Tripp Pena MD [Primary Care Provider] -
[2017-11-24] MEDS: Ipratropium/Albuterol Neb 3 ML IH SCH ×5 (03:32→20:37)
[2017-11-24] MEDS: metroNIDAZOLE 500 MG TABLET PO SCH (03:42)
[2017-11-24] MEDS: Pantoprazole 40 MG VIAL IVP SCH ×2 (06:04→18:32)
[2017-11-24] MEDS: Budesonide/Formoterol 160/4.5 MDI IH SCH ×2 (07:23→20:37)
[2017-11-24] MEDS: predniSONE 20 MG TABLET PO SCH (08:51)
[2017-11-24] MEDS: Vancomycin Oral Soln 250 MG/5 ML UDC PO SCH ×4 (08:51→20:38)
[2017-11-24 09:18] LABS: Basophils % 0.1 %; Eosinophils % 0.3 %; Segmented Neutrophils % 89.2 %
[2017-11-24 09:20] LABS: Eosinophils # 0.1 K/mcL (0.0-0.6); Hematocrit 39.3 % (35.3-44.9); Hemoglobin 10.7 g/dL (11.5-15.4); Immature Granulocytes % 0.7 % (0-4); Lymphocytes # 1.2 K/mcL (0.6-4.6); Mean Corpuscular HGB Conc 27.2 g/dL (31.6-35.5); Mean Corpuscular Hemoglobin 22.3 pg (28.0-33.3); Mean Corpuscular Volume 81.9 fL (83.0-100.0); Monocytes # 0.8 K/mcL (0.0-1.3); Monocytes % 3.7 %; Neutrophils # 18.3 K/mcL (1.6-8.9); Platelet Count 274 K/mcL (140-400); Red Cell Distribution Width 24.8 % (11.5-14.5)
[2017-11-24 09:50] LABS: BUN/Creatinine Ratio 17 (6-26); Blood Urea Nitrogen 5 mg/dL (6-20); Calcium 8.7 mg/dL (8.6-10.3); Carbon Dioxide > 45 mEq/L (23-29); Chloride 88 mEq/L (98-107); Glucose 79 mg/dL (70-105); Osmolality,Calculated 282 (280-300); Potassium 3.6 mEq/L (3.5-5.1); Sodium 138 mEq/L (136-145); eGFR For African Americans > 60 (> 60); eGFR For Non-African Americans > 60 (> 60)
[2017-11-24 12:41] LABS: Hypochromasia Present (Not Present); Platelet Estimate Normal (Normal)
[2017-11-24 12:42] LABS: Anisocytosis 3+ (Not Present)
--- NOTE | 2017-11-24 16:04 | Internal Med Progress Note ---
Date of Encounter: 11/24/17 Time of Encounter: 11:00 - Assessment and plan (1) C. difficile colitis Current Visit: Yes Status: Acute Assessment and plan: Patient with decrease episodes of diarrhea after starting by mouth vancomycin on 11/23/17 Continue current management Once diarrhea has resolved, will be okay to discharge to [facility] facility with home hospice (2) Acute and chronic respiratory failure with hypercapnia Current Visit: Yes Status: Acute Assessment and plan: Patient with a history of end-stage COPD found to be in acute on chronic hypercapnic/hypoxic respiratory failure and was extubated on 11/20/17 and subsequently transferred from the ICU to medical floor Plans for palliative/hospice care at [facility] Patient currently stable this morning on nasal cannula for supplemental oxygenation (3) COPD exacerbation Current Visit: Yes Status: Acute Assessment and plan: Minimal wheezing auscultated on exam Will continue dual nebs and prednisone (4) Pneumonia Current Visit: Yes Status: Acute Assessment and plan: Patient's respiratory status stabilizing Continue IV Levaquin Qualifiers: Lung location: unspecified part of lung Qualified Code(s): J18.9 - Pneumonia, unspecified organism (5) Goals of care, counseling/discussion Current Visit: No Status: Acute Assessment and plan: Patient will be discharged to [facility] with hospice once medically stable - Time Spent With Patient Total time spent is greater than 50% in coordination of care (as documented) at patient's floor/unit and/or counseling patient: - Subjective Interval history: Patient with a history of end-stage COPD found to be in acute on chronic hypercapnic/hypoxic respiratory failure and was extubated on 11/20/17 and subsequently transferred from the ICU to medical floor with plans for palliative /hospice care at [facility] Patient currently stable this morning on nasal cannula for supplemental oxygenation Patient with decreased episodes of diarrhea to starting oral vancomycin for C. difficile - Constitutional Vitals: Temp Pulse Resp BP Pulse Ox 98.1 F 96 18 104/61 94 11/24/17 14:05 11/24/17 14:05 11/24/17 14:05 11/24/17 10:30 11/24/17 14:05 General appearance: Present: mild distress, no acute distress - Respiratory Respiratory exam: Present: CTAB. Absent: accessory muscle use, rales, rhonchi, wheezes - Cardiovascular Cardiovascular exam: Present: RRR, +S1, +S2. Absent: diastolic murmur, gallop, rubs, systolic murmur - GI/Abdominal GI/Abdominal exam: Present: normal bowel sounds, soft, no peritoneal signs. Absent: distended, tenderness Internal Medicine: Result - Labs CBC & Chem 7: 11/24/17 08:58 11/24/17 08:58 Labs: Short CBC 11/24/17 Range/Units 08:58 WBC 20.5 H (4.3-11.1) K/mcL Hgb 10.7 L (11.5-15.4) g/dL Hct 39.3 (35.3-44.9) % Plt Count 274 (140-400) K/mcL Neutrophils # 18.3 H (1.6-8.9) K/mcL BMP 11/24/17 08:58 Sodium 138 Potassium 3.6 Chloride 88 L Carbon Dioxide > 45 H* BUN 5 L Creatinine 0.30 L Glucose 79 Calcium 8.7 - ABG Interpretation ABG results: ABG ABG pH 7.33 pH Units (7.32-7.45) 11/23/17 13:32 ABG pCO2 104 mmHg (35-45) H* 11/23/17 13:32 ABG pO2 87 mmHg (85-104) 11/23/17 13:32 ABG O2 Saturation 95 % (95-98) 11/23/17 13:32 - VTE Documentation of Mechanical Device: Intermittent pneumatic compression device Consult Discharge Plan - Plan Referrals: Tripp Pena MD [Primary Care Provider] -
[2017-11-24] MEDS: Levofloxacin 750 MG/150 ML 750 MG/150 ML BAG IVPB SCH (18:31)
[2017-11-25] MEDS: Ipratropium/Albuterol Neb 3 ML IH SCH ×6 (00:05→19:51)
[2017-11-25 05:30] LABS: Basophils % 0.1 %; Eosinophils % 0.1 %; Mean Corpuscular HGB Conc 27.6 g/dL (31.6-35.5)
[2017-11-25 05:31] LABS: Hematocrit 36.9 % (35.3-44.9); Hemoglobin 10.2 g/dL (11.5-15.4); Immature Granulocytes % 0.8 % (0-4); Lymphocytes # 1.1 K/mcL (0.6-4.6); Lymphocytes % 5.5 %; Mean Corpuscular Hemoglobin 22.7 pg (28.0-33.3); Mean Platelet Volume 11.3 fL (9.4-12.4); Monocytes # 0.8 K/mcL (0.0-1.3); Monocytes % 4.4 %; Platelet Count 274 K/mcL (140-400); Red Cell Distribution Width 24.6 % (11.5-14.5); Segmented Neutrophils % 89.1 %
[2017-11-25] MEDS: Pantoprazole 40 MG VIAL IVP SCH ×2 (05:39→18:30)
[2017-11-25 05:47] LABS: Anisocytosis 2+ (Not Present); Hypochromasia Present (Not Present); Microcytosis Present (Not Present); Platelet Estimate Normal (Normal); Spherocytes 1+ (Not Present)
[2017-11-25 06:02] LABS: BUN/Creatinine Ratio 21 (6-26); Blood Urea Nitrogen 6 mg/dL (6-20); Calcium 8.5 mg/dL (8.6-10.3); Carbon Dioxide > 45 mEq/L (23-29); Chloride 93 mEq/L (98-107); Glucose 77 mg/dL (70-105); Osmolality,Calculated 290 (280-300); Potassium 3.7 mEq/L (3.5-5.1); Sodium 142 mEq/L (136-145); eGFR For African Americans > 60 (> 60); eGFR For Non-African Americans > 60 (> 60)
[2017-11-25] MEDS: Budesonide/Formoterol 160/4.5 MDI IH SCH ×2 (07:29→19:51)
[2017-11-25] MEDS: predniSONE 20 MG TABLET PO SCH (08:57)
[2017-11-25] MEDS: Vancomycin Oral Soln 250 MG/5 ML UDC PO SCH ×4 (08:57→20:14)
--- NOTE | 2017-11-25 15:20 | Internal Med Progress Note ---
Date of Encounter: 11/25/17 Time of Encounter: 11:00 - Assessment and plan (1) C. difficile colitis Current Visit: Yes Status: Acute Assessment and plan: Patient with decrease episodes of diarrhea after starting by mouth vancomycin on 11/23/17 Patient with approximately same amount of diarrhea stools on 11/25/17 as yesterday although decreased from a couple days ago Leukocytosis slowly trending downward as well and patient has been afebrile Once diarrhea has resolved, [facility] (2) Acute and chronic respiratory failure with hypercapnia Current Visit: Yes Status: Acute Assessment and plan: Patient with a history of end-stage COPD found to be in acute on chronic hypercapnic/hypoxic respiratory failure and was extubated on 11/20/17 and subsequently transferred from the ICU to medical floor Patient will have chronic hypercapnia due to end-stage COPD with chronic respiratory failure; patient will have hospice care Patient currently stable this morning on nasal cannula for supplemental oxygenation (3) COPD exacerbation Current Visit: Yes Status: Acute Assessment and plan: Minimal wheezing auscultated on exam Will continue dual nebs and prednisone (4) Pneumonia Current Visit: Yes Status: Acute Assessment and plan: Patient's respiratory status stabilizing Patient has completed a 7 day course of IV antibiotics Continue to monitor Qualifiers: Lung location: unspecified part of lung Qualified Code(s): J18.9 - Pneumonia, unspecified organism (5) Goals of care, counseling/discussion Current Visit: No Status: Acute Assessment and plan: Patient will be discharged to [facility] with hospice once diarrhea has resolved for C. difficile - Time Spent With Patient Total time spent is greater than 50% in coordination of care (as documented) at patient's floor/unit and/or counseling patient: - Subjective Interval history: Patient with a history of end-stage COPD found to be in acute on chronic hypercapnic/hypoxic respiratory failure and was extubated on 11/20/17 and subsequently transferred from the ICU to medical floor with plans for palliative /hospice care at [facility] Patient currently stable this morning on nasal cannula for supplemental oxygenation Patient with decreased episodes of diarrhea to starting oral vancomycin for C. difficile 11/26/17: Patient with approximately same amount of diarrhea stools as yesterday although decreased from a couple days ago Leukocytosis slowly trending downward as well and patient has been afebrile Patient has not been in any respiratory distress on nasal cannula after recently being extubated on 11/20/17 - Constitutional Vitals: Temp Pulse Resp BP Pulse Ox 98.2 F 86 16 97/58 92 11/25/17 09:30 11/25/17 09:30 11/25/17 09:30 11/25/17 09:30 11/25/17 09:30 General appearance: Present: mild distress, no acute distress - Respiratory Respiratory exam: Present: CTAB. Absent: accessory muscle use, rales, rhonchi, wheezes - Cardiovascular Cardiovascular exam: Present: RRR, +S1, +S2. Absent: diastolic murmur, gallop, rubs, systolic murmur - GI/Abdominal GI/Abdominal exam: Present: normal bowel sounds, soft, no peritoneal signs. Absent: distended, tenderness Internal Medicine: Result - Labs CBC & Chem 7: 11/25/17 05:01 11/25/17 05:01 Labs: Short CBC 11/25/17 Range/Units 05:01 WBC 19.1 H (4.3-11.1) K/mcL Hgb 10.2 L (11.5-15.4) g/dL Hct 36.9 (35.3-44.9) % Plt Count 274 (140-400) K/mcL Neutrophils # 17.0 H (1.6-8.9) K/mcL BMP 11/25/17 05:01 Sodium 142 Potassium 3.7 Chloride 93 L Carbon Dioxide > 45 H* BUN 6 Creatinine 0.29 L Glucose 77 Calcium 8.5 L - ABG Interpretation ABG results: ABG ABG pH 7.33 pH Units (7.32-7.45) 11/23/17 13:32 ABG pCO2 104 mmHg (35-45) H* 11/23/17 13:32 ABG pO2 87 mmHg (85-104) 11/23/17 13:32 ABG O2 Saturation 95 % (95-98) 11/23/17 13:32 - VTE Documentation of Mechanical Device: Intermittent pneumatic compression device Consult Discharge Plan - Plan Referrals: Tripp Pena MD [Primary Care Provider] -
[2017-11-26] MEDS: Ipratropium/Albuterol Neb 3 ML IH SCH ×6 (00:23→20:44)
[2017-11-26 06:01] LABS: Basophils % 0.1 %; Monocytes % 4.1 %; Segmented Neutrophils % 88.1 %
[2017-11-26 06:03] LABS: Eosinophils % 0.1 %; Hematocrit 37.4 % (35.3-44.9); Hemoglobin 10.4 g/dL (11.5-15.4); Immature Granulocytes % 0.6 % (0-4); Lymphocytes # 1.6 K/mcL (0.6-4.6); Mean Corpuscular HGB Conc 27.8 g/dL (31.6-35.5); Mean Corpuscular Hemoglobin 22.7 pg (28.0-33.3); Mean Corpuscular Volume 81.5 fL (83.0-100.0); Mean Platelet Volume 11.1 fL (9.4-12.4); Monocytes # 0.9 K/mcL (0.0-1.3); Platelet Count 273 K/mcL (140-400); Red Blood Count 4.59 M/mcL (3.82-4.97); Red Cell Distribution Width 25.1 % (11.5-14.5)
[2017-11-26 06:07] LABS: Neutrophils # 19.7 K/mcL (1.6-8.9)
[2017-11-26] MEDS: Pantoprazole 40 MG VIAL IVP SCH (06:12)
[2017-11-26 06:15] LABS: BUN/Creatinine Ratio 19 (6-26); Blood Urea Nitrogen 6 mg/dL (6-20); Calcium 8.6 mg/dL (8.6-10.3); Carbon Dioxide > 45 mEq/L (23-29); Chloride 94 mEq/L (98-107); Glucose 119 mg/dL (70-105); Osmolality,Calculated 291 (280-300); Sodium 141 mEq/L (136-145); eGFR For African Americans > 60 (> 60); eGFR For Non-African Americans > 60 (> 60)
[2017-11-26 06:40] LABS: Hypochromasia Present (Not Present)
[2017-11-26 06:41] LABS: Anisocytosis 2+ (Not Present); Microcytosis Present (Not Present); Platelet Estimate Normal (Normal); Spherocytes 1+ (Not Present)
[2017-11-26] MEDS: predniSONE 20 MG TABLET PO SCH (07:29)
[2017-11-26] MEDS: Vancomycin Oral Soln 250 MG/5 ML UDC PO SCH ×4 (07:30→20:58)
[2017-11-26] MEDS: Budesonide/Formoterol 160/4.5 MDI IH SCH ×2 (07:57→20:44)
--- NOTE | 2017-11-26 14:13 | Infectious Disease Consult ---
Date of Encounter: 11/26/17 Time of Encounter: 14:11 Assessment and Plan (1) Sepsis Status: Acute Assessment and plan: The patient had two SIRS criteria on admission. Likely secondary to bacteremia and PNA. Improved. WBC remains elevated. Bandemia has resolved. Tachycardia resolved. The patient has remained afebrile. Blood cultures drawn in the ER at [facility] were positive 1/2 sets for GBS. Blood culture drawn here upon arrival is NGTD x 1 set. Lactic acid was normal. Qualifiers: Sepsis type: Streptococcus group B Qualified Code(s): A40.1 - Sepsis due to streptococcus, group B (2) Bacteremia Status: Acute Assessment and plan: Causative organism: GBS. Source likely PNA. Blood cultures drawn in the ER 11/18/17 1/2 sets was positive for GBS. Repeat blood cultures drawn here the same day is negative x 1 set. Initially, treated with Cefepime 11/18/-11/21, the de-esclated to Levaquin, which has intermediate susceptibility. Repeat blood cultures x 2 sets now. Start Rocephin 2 grams IV daily. Duration of treatment depends on the clinical picture, but likely 14 days from the first set of negative blood cultures. Avoid insertion of central venous access until repeat blood cultures are negative x 2 sets for 48 hours. front services agent to assist with discharge planning. (3) Pneumonia Status: Acute Assessment and plan: Location: RLL. Causative organism unclear, but likely GBS given the patient's blood culture results. CXR completed 11/18/17 showed RLL airspace disease, PNA vs. pleural effusion. S. pneumo and Legionella UAT negative. Sputum culture not collected. Repeat CXR now. Start Rocephin 2 grams IV daily as above. Duration of treatment depends on the clinical picture. Qualifiers: Pneumonia type: due to unspecified organism Laterality: bilateral Lung location: unspecified part of lung Qualified Code(s): J18.9 - Pneumonia, unspecified organism (4) C. difficile colitis Status: Acute Assessment and plan: Likely secondary to recent antibiotic use. C. diff positive on 11/22/17. Continue contact/C. diff precautions per protocol. Continue Vancomycin 125mg PO QID. Duration of treatment depends on the clinical picture. (5) Acute encephalopathy Status: Resolved Assessment and plan: Likely multifactorial: sepsis + hypercarbia. CT head negative. Resolved. (6) Acute exacerbation of chronic obstructive airways disease Status: Acute Assessment and plan: On admission. Management per the primary team. (7) Acute and chronic respiratory failure with hypercapnia Status: Acute Assessment and plan: Likely secondary to PNA and AECOPD. Appears improved. Patient states she is unable to tolerate BiPAP at home. Management per the primary team. (8) CAD (coronary artery disease) Status: Chronic Qualifiers: Coronary Disease-Associated Artery/Lesion type: creek artery [place] vs. transplanted heart: creek heart Associated angina: without angina Qualified Code(s): I25.10 - Atherosclerotic heart disease of creek coronary artery without angina pectoris (9) Hypertension Status: Chronic Qualifiers: Hypertension type: essential hypertension Qualified Code(s): I10 - Essential (primary) hypertension (10) Afib Status: Chronic Qualifiers: Atrial fibrillation type: unspecified Qualified Code(s): I48.91 - Unspecified atrial fibrillation (11) Tobacco abuse Status: Acute Infectious Disease HPI - Data of Consult Patient: new to practice Consult date: 11/26/17 Requesting Physician: Nino Pizarro Primary Care Provider: Tripp Pena MD - Consult Narrative Reason for consult: Leukocytosis History of present illness: Ms. 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 The patient was admitted to the hospital 11/18/17 for acute on chronic respiratory failure, AECOPD, and pneumonia. We are consulted 11/26/17 for recommendations regarding persistent leukocytosis. Briefly, the patient is a 57 year old female with a past medical history as stated above. The patient is a poor historian regarding the events leading up to her hospitalization, so most of the information is obtained from the medical record. Apparently, the patient became lethargic, obtunded, and hypoxic at the [facility] where she resides. Upon presentation to the ER, she was tachycardic, hypoxic , and had leukocytosis with bandemia. CXR showed RLL airspace disease concerning for PNA vs pleural effusion. Blood cultures were drawn x 2 sets. Urinalysis was negative for pyuria. She was started empirically on IV Levaquin. Eventually, the patient was unable to maintain saturations on BiPAP and was intubated and transferred to [facility] for further evaluation. Since admission, the patient's WBC has remained elevated. She was successfully extubated to BiPAP on 11/19/17 and is currently on nasal cannula. She was initially treated with Cefepime, Vanc, and Zithromax and was de-escalated to IV Levaquin on 11/21/17. She started having diarrhea and was C. diff positive on . She continued to have leukocytosis. Repeat CXR 11/23/17 showed new mild left basilar atelectasis vs. PNA. She completed 7 days of antibiotics and they were discontinued. She continues to have persistent leukocytosis. We've been asked to evaluate and make further recommendations. During my exam today, the patient states that she was in her usual state of health. She doesn't remember why or how she got to the hospital. Currently, she denies fevers, chills, or rigors. Denies headache, neck pain, weakness, or dizziness. Denies chest pain. Reports cough with thick white sputum and chronic MEHTA. Denies nausea, vomiting, or abdominal pain. States she does have loose stools when she goes to the bathroom to urinate, but states she feels like her stool is more formed and she is having them less frequently. She denies back or joint pain. She does report chronic, intermittent N/T to the LLE. She denies oral thrush or skin lesions. States she is unable to wear her dentures because they don't fit. The patient has been living at a local [facility] for the past 5 months due to her advanced COPD. She reports she has recently weaned herself down to 2 cigarettes per day, but has been smoking for 40 years and was previously smoking 2-3 packs per day. She reports she used to drink alcohol heavily, but has been sober for 10 years. She denies drug use. Denies recent travel. Denies exposure to animals or known sick contacts. CC: Nino Pizarro Past Med Surg Social Fam HX - Past Medical History Attestation: Yes The following information was validated with the patient. Source: patient, old records reviewed, nursing notes reviewed Medical history: atrial fibrillation, COPD, coronary artery disease, GI bleed, hyperlipidemia, hypertension, myocardial infarction, other (Cognitive communication deficit, iron deficiency anemia) Psychiatric history: anxiety, depression - Past Surgical History Surgical History: angioplasty/stent - Social History Smoking Status: Current every day smoker Packs per day: 0.5 Smokeless Tobacco Status: No Alcohol use: none Drug use: none Occupational status: unemployed Current living situation: [facility] Activity Level: Uses cane/walker Recent Out of Country Travel Within the Last 8 Weeks: No Exposure or Possible Exposure to Illness During Travel: No - Family History Father Living Status: Hx Family Cardiac Disorders: No Hx Family Respiratory Disorders: No Hx Family Cancer: Yes (Colon) Hx Family GI Disorders: No Hx Family Endocrine Disorder: No Hx Family Neuromuscular Disorders: No Hx Family Neurologic Disorders: No Hx Family HEENT Disorders: No Hx Family Autoimmune Disorders: No Mother Living Status: Hx Family Cardiac Disorders: Yes (bradycardia) Hx Family Respiratory Disorders: Yes (copd, emphysema) Hx Family Cancer: Yes (lung cancer) Hx Family GI Disorders: No Hx Family Endocrine Disorder: Yes (Diabetes) Hx Family Neuromuscular Disorders: No Hx Family Neurologic Disorders: No Hx Family HEENT Disorders: No Hx Family Autoimmune Disorders: No Infectious Disease-CN:Meds Albuterol Sulfate [Ventolin Hfa] 1 puff IH Q6H PRN 06/19/17 [History] Atorvastatin [Lipitor] 80 mg PO HS 06/19/17 [History] Fluticasone/Vilanterol [Breo Ellipta 100-25 Mcg INH] 1 puff IH DAILY 06/19/17 [ History] Guaifenesin [Mucinex] 600 mg PO BID 06/19/17 [History] Hyoscyamine SL [Levsin Sl] 0.125 mg SL Q2H PRN 06/19/17 [History] Promethazine HCl 25 mg PO Q6H PRN 06/19/17 [History] Rivaroxaban [Xarelto] 20 mg PO DAILY 06/19/17 [History] Acetaminophen [Tylenol 650mg SUPP] 650 mg RC Q4H PRN 06/20/17 [History] Oxycodone HCl [Oxaydo] 5 mg PO Q6H PRN #20 tablet.orl 06/26/17 [Rx] Dextran 70/Hypromellose/Pf [Artificial Tears Drops] 1 drop OP BID PRN 11/18/17 [ History] Ibuprofen [Motrin] 400 mg PO Q6HR PRN 11/18/17 [History] Ipratropium/Albuterol Neb [Duoneb] 3 ml IH QID PRN 11/18/17 [History] predniSONE [PredniSONE] 10 mg PO DAILY 11/18/17 [History] 3 Allergy/AdvReac Type Severity Reaction Status Date / Time codeine Allergy Hives Verified 06/20/17 08:23 All systems: reviewed and no additional remarkable complaints except as stated Exam - Constitutional Vitals: Temp Pulse Resp BP Pulse Ox 98.2 F 86 16 101/61 90 11/26/17 07:41 11/26/17 07:41 11/26/17 11:59 11/26/17 07:41 11/26/17 11:59 General appearance: cooperative, no acute distress, thin - Head Head exam: Present: atraumatic, normal inspection, normocephalic - Eye Eye exam: Present: EOMI, normal appearance, PERRL Pupils: Present: normal accommodation - ENT ENT exam: Present: mucous membranes moist Additional comments: Adentitious. - Neck Neck exam: Present: normal inspection - Respiratory Respiratory exam: Present: CTAB. Absent: rales, respiratory distress, rhonchi, wheezes - Cardiovascular Cardiovascular exam: Present: irregular rhythm, +S1, +S2. Absent: tachycardia - GI/Abdominal GI/Abdominal exam: Present: normal bowel sounds, soft. Absent: distended, tenderness - Extremities Exam Extremities exam: Present: normal inspection. Absent: joint swelling, pedal edema, tenderness - Neurological Exam Neurological exam: Present: alert, oriented X3, no focal deficits - Psychiatric Psychiatric exam: Present: normal affect, normal mood - Skin Skin exam: Present: dry, intact, normal color, warm Infectious Disease CN: Results - Labs CBC & Chem 7: 11/27/17 10:11 11/27/17 08:01 Cultures: Cultures 11/18/17 12:41 Blood Culture - Final Peripheral Venipuncture No growth. 11/18/17 10:55 Sputum Culture - Final Sputum 11/18/17 15:28 Urine Culture - Final Urine,[place] No growth. 11/18/17 15:28 Legionella Antigen - Final Urine,[place] Streptococcus pneumoniae Antigen (M - Final Serology: Serology 11/22/17 11/22/17 11/18/17 Range/Units 15:50 15:50 10:55 Stl C. cayetanensis PCR Not detected (Not detect) Stool Rotavirus A PCR Not detected (Not detect) Stl Adenov F 40/41 PCR Not detected (Not detect) Stool Astrovirus (PCR) Not detected (Not detect) Stool Campylobacter PCR Not detected (Not detect) Stl C. diff Tox B Gene Positive (Negative) Stl C. diff Tox A/B PCR See reflex test A (Not detect) Stool Cryptosporidium PCR Not detected (Not detect) Stl Sh Tox Pr E STEC PCR Not detected (Not detect) Stool E coli O157 PCR Not detected (Not detect) Stl Enterotoxigenic E PCR Not detected (Not detect) Stool EPEC (PCR) Not detected (Not detect) Stool EAEC (PCR) Not detected (Not detect) Stl E. histolytica PCR Not detected (Not detect) Stool Giardia Lamblia PCR Not detected (Not detect) Stool Salmonella PCR Not detected (Not detect) Stool Sapovirus (PCR) Not detected (Not detect) Stl P. shigelloides PCR Not detected (Not detect) Stl Shigella/EIEC PCR Not detected (Not detect) St Y.enterocolitica PCR Not detected (Not detect) Stool Vibrio (PCR) Not detected (Not detect) Stl Vibrio cholerae PCR Not detected (Not detect) Stl Norovirus GI/GII PCR Not detected (Not detect) Stl GI Panel (PCR) Com See below Chlamy pneumoniae PCR Not Detected (Not Detect) Adenovirus (PCR) Not Detected (Not Detect) B. pertussis DNA (PCR) Not Detected (Not Detect) B.parapertussis DNA PCR Not Detected (Not Detect) Coronavirus OC43 (PCR) Not Detected (Not Detect) Coronavirus HKU1 (PCR) Not Detected (Not Detect) Coronavirus 229E (PCR) Not Detected (Not Detect) Coronavirus NL63 (PCR) Not Detected (Not Detect) Human Metapneumovir PCR DETECTED A (Not Detect) Influenza A (H1) PCR Not Detected (Not Detect) Influ A (H1N1/09) PCR Not Detected (Not Detect) Influenza A (H3) PCR Not Detected (Not Detect) Influenza A Untype (PCR) Not Detected (Not Detect) Influenza Type B (PCR) Not Detected (Not Detect) M.pneumoniae DNA (PCR) Not Detected (Not Detect) Parainfluenza 1 (PCR) Not Detected (Not Detect) Parainfluenza 2 (PCR) Not Detected (Not Detect) Parainfluenza 3 (PCR) Not Detected (Not Detect) Parainfluenza 4 (PCR) Not Detected (Not Detect) RSV (PCR) Not Detected (Not Detect) Entero/Rhino (PCR) Not Detected (Not Detect) - VTE Documentation of Mechanical Device: Intermittent pneumatic compression device Consult Discharge Plan - Plan Referrals: Tripp Pena MD [Primary Care Provider] - - Attending Attestation I examined this patient and my medical decision-making was reviewed with the Resident Physician. I agree with the documented findings, disposition and treatment plan as described except to the extent set forth below. This is an addendum to original report dictated by Jania Vega CNP. Please refer to Yolanda note for full details. Patient is a 7-year-old woman with past medical history mentioned below including end-stage renal disease, COPD requiring home O2 nasal cannula, atrial fibrillation, coronary artery disease and GI bleed predictive the hospital on November 18 with acute on chronic respiratory failure and acute exacerbation of COPD and pneumonia. Workup revealed positive right lower lobe airspace disease concerning for pneumonia versus pleural effusion. Patient was also tachycardic hypoxic and had leukocytosis with bandemia. A urinalysis was negative for pyuria. Strep pneumo and legionella urine antigen were done and came back negative. Patient apparently does have blood cultures at the outside facility on November 18 and 1 out of 2 sets were positive for group B strep. Patient also has history infectious panel which was positive for human admitted to pneumo virus. Patient was also having diarrhea and C. difficile was checked and came back positive. Patient has been on a battery of antibiotics. At this point patient appears to be stable. She is confused and not the best historian but otherwise she is doing okay. No acute distress. Start Rocephin 2 g IV daily Continue oral vancomycin Duration of treatment this and 14 days Repeat blood cultures to make sure that the bacteremia has resolved
[2017-11-26] MEDS: cefTRIAXone 2,000 MG in Water for inj. (sterile) 20 ML 20 ML IVP SCH (14:35)
[2017-11-26] MEDS: *HR* Rivaroxaban 10 MG TABLET PO SCH (16:34)
--- NOTE | 2017-11-26 17:22 | Internal Med Progress Note ---
Date of Encounter: 11/26/17 Time of Encounter: 11:00 - Assessment and plan (1) C. difficile colitis Current Visit: Yes Status: Acute Assessment and plan: Patient with decreased episodes of diarrhea after starting by mouth vancomycin on 11/23/17 Patient without any improvement in leukocytosis Will continue oral vancomycin Infectious disease has been consulted and appreciate recommendations (2) Acute and chronic respiratory failure with hypercapnia Current Visit: Yes Status: Acute Assessment and plan: Patient with a history of end-stage COPD found to be in acute on chronic hypercapnic/hypoxic respiratory failure and was extubated on 11/20/17 and subsequently transferred from the ICU to medical floor Patient will have chronic hypercapnia due to end-stage COPD with chronic respiratory failure; patient will have hospice care Patient currently stable this morning on nasal cannula for supplemental oxygenation Plans to discharge back to senior living facility with hospice once C. difficile infection cleared (3) COPD exacerbation Current Visit: Yes Status: Acute Assessment and plan: Minimal wheezing auscultated on exam Will continue dual nebs and prednisone (4) Pneumonia Current Visit: Yes Status: Acute Assessment and plan: Patient's respiratory status stabilizing Patient has completed a 7 day course of IV antibiotics Continue to monitor Infectious disease consulted and appreciate recommendations Qualifiers: Lung location: unspecified part of lung Qualified Code(s): J18.9 - Pneumonia, unspecified organism (5) Goals of care, counseling/discussion Current Visit: No Status: Acute Assessment and plan: Patient will be discharged to [facility] with hospice once diarrhea has resolved for C. difficile - Time Spent With Patient Total time spent is greater than 50% in coordination of care (as documented) at patient's floor/unit and/or counseling patient: - Subjective Interval history: Patient with a history of end-stage COPD found to be in acute on chronic hypercapnic/hypoxic respiratory failure and was extubated on 11/20/17 and subsequently transferred from the ICU to medical floor with plans for palliative /hospice care at [facility] Patient currently stable this morning on nasal cannula for supplemental oxygenation Patient with decreased episodes of diarrhea to starting oral vancomycin for C. difficile 11/25/17: Patient with approximately same amount of diarrhea stools as yesterday although decreased from a couple days ago Leukocytosis slowly trending downward as well and patient has been afebrile Patient has not been in any respiratory distress on nasal cannula after recently being extubated on 11/20/17 11/26/17: Patient with decreased diarrhea episodes after starting by mouth vancomycin for C. difficile Patient's respiratory status continues to be stable on nasal cannula status post extubation on 11/20/17 - Constitutional Vitals: Temp Pulse Resp BP Pulse Ox 98.3 F 88 16 106/60 97 11/26/17 15:22 11/26/17 15:22 11/26/17 15:39 11/26/17 15:22 11/26/17 15:39 General appearance: Present: mild distress, no acute distress - Respiratory Respiratory exam: Present: CTAB. Absent: accessory muscle use, rales, rhonchi, wheezes - Cardiovascular Cardiovascular exam: Present: RRR, +S1, +S2. Absent: diastolic murmur, gallop, rubs, systolic murmur - GI/Abdominal GI/Abdominal exam: Present: normal bowel sounds, soft, no peritoneal signs. Absent: distended, tenderness Internal Medicine: Result - Labs CBC & Chem 7: 11/26/17 05:36 11/26/17 05:36 Labs: Short CBC 11/26/17 Range/Units 05:36 WBC 22.3 H (4.3-11.1) K/mcL Hgb 10.4 L (11.5-15.4) g/dL Hct 37.4 (35.3-44.9) % Plt Count 273 (140-400) K/mcL Neutrophils # 19.7 H (1.6-8.9) K/mcL BMP 11/26/17 05:36 Sodium 141 Potassium 4.0 Chloride 94 L Carbon Dioxide > 45 H* BUN 6 Creatinine 0.32 L Glucose 119 H Calcium 8.6 - ABG Interpretation ABG results: ABG ABG pH 7.33 pH Units (7.32-7.45) 11/23/17 13:32 ABG pCO2 104 mmHg (35-45) H* 11/23/17 13:32 ABG pO2 87 mmHg (85-104) 11/23/17 13:32 ABG O2 Saturation 95 % (95-98) 11/23/17 13:32 - Impressions Impressions Chest X-Ray 11/26/17 14:09 IMPRESSION: COPD. Improved but persistent minimal left basilar airspace disease. Blunting of the left costophrenic angle may reflect pleural thickening or trace effusion. D/ / 11/26/2017 15:40:43 Eloise Mendoza MD / [facility] Interpreting Provider: Eloise Mendoza MD - VTE Documentation of Mechanical Device: Intermittent pneumatic compression device Consult Discharge Plan - Plan Referrals: Tripp Pena MD [Primary Care Provider] -
[2017-11-27] MEDS: Ipratropium/Albuterol Neb 3 ML IH SCH ×6 (00:06→20:45)
[2017-11-27] MEDS: Vancomycin Oral Soln 250 MG/5 ML UDC PO SCH ×4 (07:26→20:26)
[2017-11-27] MEDS: Budesonide/Formoterol 160/4.5 MDI IH SCH ×2 (07:35→20:45)
--- NOTE | 2017-11-27 08:19 | Internal Med Progress Note ---
<Jimmy Randall - Last Filed: 11/27/17 17:12> Date of Encounter: 11/27/17 - Assessment and plan (1) Sepsis Current Visit: Yes Status: Acute Qualifiers: Sepsis type: Streptococcus group B Qualified Code(s): A40.1 - Sepsis due to streptococcus, group B (2) Bacteremia Current Visit: Yes Status: Acute Assessment and plan: Group B strep (3) C. difficile colitis Current Visit: Yes Status: Acute (4) Acute and chronic respiratory failure with hypercapnia Current Visit: Yes Status: Resolved (5) COPD exacerbation Current Visit: Yes Status: Resolved (6) Pneumonia Current Visit: Yes Status: Acute Qualifiers: Pneumonia type: due to unspecified organism Laterality: bilateral Lung location: unspecified part of lung Qualified Code(s): J18.9 - Pneumonia, unspecified organism (7) Goals of care, counseling/discussion Current Visit: No Status: Acute - Time Spent With Patient Total time spent is greater than 50% in coordination of care (as documented) at patient's floor/unit and/or counseling patient: - Constitutional Vitals: Temp Pulse Resp BP Pulse Ox 98.1 F 100 16 100/64 92 11/27/17 14:57 11/27/17 14:57 11/27/17 14:57 11/27/17 14:57 11/27/17 14:57 Internal Medicine: Result - Labs CBC & Chem 7: 11/27/17 10:11 11/27/17 08:01 Labs: Short CBC 11/27/17 Range/Units 10:11 WBC 23.8 H (4.3-11.1) K/mcL Hgb 10.7 L (11.5-15.4) g/dL Hct 38.0 (35.3-44.9) % Plt Count 271 (140-400) K/mcL Neutrophils # 22.4 H (1.6-8.9) K/mcL BMP 11/27/17 08:01 Sodium 141 Potassium 4.0 Chloride 94 L Carbon Dioxide 43 H* BUN 7 Creatinine 0.37 L Glucose 97 Calcium 9.0 - ABG Interpretation ABG results: ABG ABG pH 7.33 pH Units (7.32-7.45) 11/23/17 13:32 ABG pCO2 104 mmHg (35-45) H* 11/23/17 13:32 ABG pO2 87 mmHg (85-104) 11/23/17 13:32 ABG O2 Saturation 95 % (95-98) 11/23/17 13:32 Consult Discharge Plan - Plan Referrals: Tripp Pena MD [Primary Care Provider] - - Attending Attestation I examined this patient and my medical decision-making was reviewed with the Resident Physician on 11/27/17. I agree with the documented findings, disposition and treatment plan as described except to the extent set forth below. Ms De Oliveira is currently admitted for respiratory failure and C diff colitis. She remains moderate to high risk due to potential for worsening clinical status. Ms De Oliveira is resting comfortably. She is tolerating a diet. No diarrhea today. No tenderness. Exam Alert Comfortable Mucus membranes dry Heart reg No wheeze Abd nontender I/P 1. C diff colitis 2. Leukocytosis 3. Resp failure Further diagnoses and plan as above <Diana Bowman - Last Filed: 11/27/17 21:19> Date of Encounter: 11/27/17 Time of Encounter: 08:17 - Assessment and plan (1) Goals of care, counseling/discussion Current Visit: No Status: Acute Assessment and plan: Patient will be discharged to ECF with hospice once diarrhea has resolved for C. difficile (2) Pneumonia Current Visit: Yes Status: Acute Assessment and plan: Patient's respiratory status stabilizing, transferred from ICU following extubation Patient has completed a 7 day course of IV levaquin Continue to monitor Infectious disease consulted and appreciate recommendations Tolerating 3L O2, at home requirement Afebrile, WBC elevated secondary to c.diff as below. Plan Continue Rocephin day #2 per ID recommendations Qualifiers: Pneumonia type: due to unspecified organism Laterality: bilateral Lung location: unspecified part of lung (3) COPD exacerbation Current Visit: Yes Status: Resolved Assessment and plan: Stable, no longer in exacerbation Diminished lung sounds on exam without wheezing appreciated Completed course of prednisone Will continue to monitor and continue duo nebs (4) Acute and chronic respiratory failure with hypercapnia Current Visit: Yes Status: Resolved Assessment and plan: Resolved, as above for COPD and PNA (5) C. difficile colitis Current Visit: Yes Status: Acute Assessment and plan: Oral vancomycin day #5, symptoms improving No bowel movements yet this morning at time of interview Pending placement back to SNF once symptoms have resolved - Time Spent With Patient Total time spent is greater than 50% in coordination of care (as documented) at patient's floor/unit and/or counseling patient: - Subjective Interval history: Patient seen and examined at bedside. Patient states she is doing well overall. States her SOB is present when she feels warm, but overall about at her baseline. Admits to cough, but improved and sputum is white. Denies CP, nausea, vomiting, urinary symptoms, abdominal pain, fevers, chills. She does not yet report a bowel movement this morning. - Constitutional Vitals: Temp Pulse Resp BP Pulse Ox 98.0 F 94 18 106/65 93 11/27/17 04:35 11/27/17 04:35 11/27/17 07:35 11/27/17 04:35 11/27/17 07:35 General appearance: Present: mild distress, no acute distress Exam: General: vital signs noted, No acute distress, sitting comfortably in bed HEENT: head normocephalic/atraumatic, EOMI, PERRL, sclera anicteric, moist mucus membranes, Neck: Supple,FROM Cardio: RRR, no murmurs, +S1/S2 Pulm: Severely diminished breath sounds bilaterally, no wheezing, rhonchi, rales appreciated. Normal respiratory effort. Abdomen: soft, nontender, BS+, no rebound, rigidity, guarding, distention Extremities: No LE edema, no calf tenderness, no cyanosis Neuro: AAOx3, no focal deficit, no speech deficit, mentation intact, normal gait , CN II-XII grossly intact MSK: Strength 5/5 throughout, no visible deformities Skin: clean, dry, intact, no visible rashes Psych: Answers questions appropriately. Cooperative with exam Internal Medicine: Result - Labs CBC & Chem 7: 11/27/17 10:11 11/27/17 08:01 - ABG Interpretation ABG results: ABG ABG pH 7.33 pH Units (7.32-7.45) 11/23/17 13:32 ABG pCO2 104 mmHg (35-45) H* 11/23/17 13:32 ABG pO2 87 mmHg (85-104) 11/23/17 13:32 ABG O2 Saturation 95 % (95-98) 11/23/17 13:32 - Impressions Impressions Chest X-Ray 11/26/17 14:09 IMPRESSION: COPD. Improved but persistent minimal left basilar airspace disease. Blunting of the left costophrenic angle may reflect pleural thickening or trace effusion. D/ / 11/26/2017 15:40:43 Eloise Mendoza MD / [facility] Interpreting Provider: Eloise Mendoza MD - VTE Documentation of Mechanical Device: Intermittent pneumatic compression device
[2017-11-27 09:27] LABS: BUN/Creatinine Ratio 19 (6-26); Blood Urea Nitrogen 7 mg/dL (6-20); Carbon Dioxide 43 mEq/L (23-29); Chloride 94 mEq/L (98-107); Glucose 97 mg/dL (70-105); Osmolality,Calculated 290 (280-300); Sodium 141 mEq/L (136-145); eGFR For African Americans > 60 (> 60); eGFR For Non-African Americans > 60 (> 60)
[2017-11-27 10:31] LABS: Hemoglobin 10.7 g/dL (11.5-15.4); Mean Corpuscular HGB Conc 28.2 g/dL (31.6-35.5); Mean Corpuscular Hemoglobin 22.7 pg (28.0-33.3); Mean Corpuscular Volume 80.5 fL (83.0-100.0); Mean Platelet Volume 11.4 fL (9.4-12.4); Platelet Count 271 K/mcL (140-400); Red Blood Count 4.72 M/mcL (3.82-4.97); Red Cell Distribution Width 25.5 % (11.5-14.5)
[2017-11-27 10:45] LABS: Anisocytosis 2+ (Not Present); Hypochromasia Present (Not Present); Lymphocytes # 1.4 K/mcL (0.6-4.6); Microcytosis Present (Not Present); Neutrophils # 22.4 K/mcL (1.6-8.9); Platelet Estimate Normal (Normal)
[2017-11-27] MEDS: cefTRIAXone 2,000 MG in Water for inj. (sterile) 20 ML 20 ML IVP SCH (14:07)
[2017-11-27] MEDS: *HR* Rivaroxaban 10 MG TABLET PO SCH (16:58)
--- NOTE | 2017-11-27 17:46 | Infectious Disease Progress No ---
Date of Encounter: 11/27/17 Time of Encounter: 17:44 - Assessment and Plan (1) Sepsis Current Visit: Yes Status: Acute The patient had two SIRS criteria on admission. Likely secondary to bacteremia and PNA. Improved. WBC remains elevated. Bandemia has resolved. Tachycardia resolved. The patient has remained afebrile. Blood cultures drawn in the ER at [facility] were positive 1/2 sets for GBS. Blood culture drawn here upon arrival is NGTD x 1 set. Lactic acid was normal. Qualifiers: Sepsis type: Streptococcus group B Qualified Code(s): A40.1 - Sepsis due to streptococcus, group B (2) Bacteremia Current Visit: Yes Status: Acute Causative organism: GBS. Source likely PNA. Blood cultures drawn in the ER 11/18/17 1/2 sets was positive for GBS. Repeat blood cultures drawn here the same day is negative x 1 set. Initially, treated with Cefepime 11/18/-11/21, the de-esclated to Levaquin, which has intermediate susceptibility. Repeat blood cultures x 2 sets now. Start Rocephin 2 grams IV daily. Duration of treatment depends on the clinical picture, but likely 14 days from the first set of negative blood cultures. Avoid insertion of central venous access until repeat blood cultures are negative x 2 sets for 48 hours. Repeat cultures are negative so far. I am not even sure if this was a contaminant I am concerned though because she has leukocytosis Continue Rocephin (3) Pneumonia Current Visit: Yes Status: Acute Causative organism meta-Pneumovirus and maybe group B strep CXR completed 11/18/17 showed RLL airspace disease, PNA vs. pleural effusion. S. pneumo and Legionella UAT negative. Sputum culture not collected. Repeat CXR now. Start Rocephin 2 grams IV daily as above. Duration of treatment depends on the clinical picture. But likely 10 days Qualifiers: Pneumonia type: due to unspecified organism Laterality: bilateral Lung location: unspecified part of lung Qualified Code(s): J18.9 - Pneumonia, unspecified organism (4) C. difficile colitis Current Visit: Yes Status: Acute Likely secondary to recent antibiotic use. C. diff positive on 11/22/17. Continue contact/C. diff precautions per protocol. Currently on oral vancomycin 125 mg every 6 hours Continue current treatment for 14 days total (5) Acute encephalopathy Current Visit: No Status: Resolved (6) Acute exacerbation of chronic obstructive airways disease Current Visit: No Status: Acute (7) Acute and chronic respiratory failure with hypercapnia Current Visit: Yes Status: Resolved (8) CAD (coronary artery disease) Current Visit: No Status: Chronic Qualifiers: Coronary Disease-Associated Artery/Lesion type: [place] artery [place] vs. transplanted heart: [place] heart Associated angina: without angina Qualified Code(s): I25.10 - Atherosclerotic heart disease of [place] coronary artery without angina pectoris (9) Hypertension Current Visit: No Status: Chronic Qualifiers: Hypertension type: essential hypertension Qualified Code(s): I10 - Essential (primary) hypertension (10) Afib Current Visit: No Status: Chronic Qualifiers: Atrial fibrillation type: unspecified Qualified Code(s): I48.91 - Unspecified atrial fibrillation (11) Tobacco abuse Current Visit: No Status: Acute - Subjective Interval history: Patient seen and examined. Appears comfortable. Laying in bed. No acute distress. She states that she does not know if she had a bowel movement today. No shortness of breath no chest pain no urinary symptoms. Infect Dis PN-Objective Data - Labs CBC & Chem 7: 11/27/17 10:11 11/27/17 08:01 Labs: Laboratory Results - last 24 hr 11/27/17 11/27/17 11/27/17 08:01 08:52 10:11 WBC 23.8 H RBC 4.72 Hgb 10.7 L Hct 38.0 MCV 80.5 L MCH 22.7 L MCHC 28.2 L RDW 25.5 H Plt Count 271 MPV 11.4 Seg Neutrophils % 94.0 Lymphocytes % 6.0 Neutrophils # 22.4 H Lymphocytes # 1.4 Platelet Estimate Normal Hypochromasia Present A Anisocytosis 2+ A Microcytosis Present A Sodium 141 Potassium 4.0 Chloride 94 L Carbon Dioxide 43 H* BUN 7 Creatinine 0.37 L Est GFR ( Amer) > 60 Est GFR (Non-Af Amer) > 60 BUN/Creatinine Ratio 19 Glucose 97 Calculated Osmolality 290 Calcium 9.0 Specimen Rejected Miscellaneous Cultures: Cultures 11/18/17 12:41 Blood Culture - Final Peripheral Venipuncture No growth. 11/18/17 10:55 Sputum Culture - Final Sputum 11/18/17 15:28 Urine Culture - Final Urine,[place] No growth. 11/18/17 15:28 Legionella Antigen - Final Urine,[place] Streptococcus pneumoniae Antigen (M - Final Serology 11/22/17 11/22/17 11/18/17 Range/Units 15:50 15:50 10:55 Stl C. [place]ensis PCR Not detected (Not detect) Stool Rotavirus A PCR Not detected (Not detect) Stl Adenov F 40/41 PCR Not detected (Not detect) Stool Astrovirus (PCR) Not detected (Not detect) Stool Campylobacter PCR Not detected (Not detect) Stl C. diff Tox B Gene Positive (Negative) Stl C. diff Tox A/B PCR See reflex test A (Not detect) Stool Cryptosporidium PCR Not detected (Not detect) Stl Sh Tox Pr E STEC PCR Not detected (Not detect) Stool E coli O157 PCR Not detected (Not detect) Stl Enterotoxigenic E PCR Not detected (Not detect) Stool EPEC (PCR) Not detected (Not detect) Stool EAEC (PCR) Not detected (Not detect) Stl E. histolytica PCR Not detected (Not detect) Stool Giardia Lamblia PCR Not detected (Not detect) Stool Salmonella PCR Not detected (Not detect) Stool Sapovirus (PCR) Not detected (Not detect) Stl P. shigelloides PCR Not detected (Not detect) Stl Shigella/EIEC PCR Not detected (Not detect) St Y.enterocolitica PCR Not detected (Not detect) Stool Vibrio (PCR) Not detected (Not detect) Stl Vibrio cholerae PCR Not detected (Not detect) Stl Norovirus GI/GII PCR Not detected (Not detect) Stl GI Panel (PCR) Com See below Chlamy pneumoniae PCR Not Detected (Not Detect) Adenovirus (PCR) Not Detected (Not Detect) B. pertussis DNA (PCR) Not Detected (Not Detect) B.parapertussis DNA PCR Not Detected (Not Detect) Coronavirus OC43 (PCR) Not Detected (Not Detect) Coronavirus HKU1 (PCR) Not Detected (Not Detect) Coronavirus 229E (PCR) Not Detected (Not Detect) Coronavirus NL63 (PCR) Not Detected (Not Detect) Human Metapneumovir PCR DETECTED A (Not Detect) Influenza A (H1) PCR Not Detected (Not Detect) Influ A (H1N1/09) PCR Not Detected (Not Detect) Influenza A (H3) PCR Not Detected (Not Detect) Influenza A Untype (PCR) Not Detected (Not Detect) Influenza Type B (PCR) Not Detected (Not Detect) M.pneumoniae DNA (PCR) Not Detected (Not Detect) Parainfluenza 1 (PCR) Not Detected (Not Detect) Parainfluenza 2 (PCR) Not Detected (Not Detect) Parainfluenza 3 (PCR) Not Detected (Not Detect) Parainfluenza 4 (PCR) Not Detected (Not Detect) RSV (PCR) Not Detected (Not Detect) Entero/Rhino (PCR) Not Detected (Not Detect) Exam - Constitutional Vitals: Temp Pulse Resp BP Pulse Ox 98.1 F 100 18 100/64 95 11/27/17 14:57 11/27/17 14:57 11/27/17 16:27 11/27/17 14:57 11/27/17 16:27 General appearance: no acute distress, no febrile - Respiratory Respiratory exam: Present: CTAB. Absent: wheezes Additional comments: Diminished breath sounds universally. - Cardiovascular Cardiovascular exam: Present: RRR, +S1, +S2. Absent: systolic murmur - GI/Abdominal GI/Abdominal exam: Present: normal bowel sounds, soft. Absent: tenderness - Extremities Exam Extremities exam: Present: normal inspection. Absent: joint swelling - VTE Documentation of Mechanical Device: Intermittent pneumatic compression device Consult Discharge Plan - Plan Referrals: Tripp Pena MD [Primary Care Provider] -
[2017-11-28] MEDS: Ipratropium/Albuterol Neb 3 ML IH SCH ×7 (00:31→23:41)
[2017-11-28 05:53] LABS: Basophils % 0.2 %; Mean Platelet Volume 11.1 fL (9.4-12.4)
[2017-11-28 05:55] LABS: Basophils # 0.1 K/mcL (0.0-0.2); Eosinophils # 0.3 K/mcL (0.0-0.6); Eosinophils % 1.2 %; Hematocrit 38.1 % (35.3-44.9); Hemoglobin 10.8 g/dL (11.5-15.4); Immature Granulocytes % 0.7 % (0-4); Lymphocytes # 1.3 K/mcL (0.6-4.6); Lymphocytes % 5.4 %; Mean Corpuscular HGB Conc 28.3 g/dL (31.6-35.5); Mean Corpuscular Hemoglobin 22.5 pg (28.0-33.3); Mean Corpuscular Volume 79.4 fL (83.0-100.0); Monocytes # 1.1 K/mcL (0.0-1.3); Monocytes % 4.6 %; Platelet Count 285 K/mcL (140-400); Red Cell Distribution Width 26.1 % (11.5-14.5); Segmented Neutrophils % 87.9 %
[2017-11-28 05:57] LABS: Neutrophils # 20.8 K/mcL (1.6-8.9)
[2017-11-28 06:26] LABS: BUN/Creatinine Ratio 24 (6-26); Blood Urea Nitrogen 7 mg/dL (6-20); Calcium 8.5 mg/dL (8.6-10.3); Carbon Dioxide 41 mEq/L (23-29); Chloride 94 mEq/L (98-107); Glucose 90 mg/dL (70-105); Osmolality,Calculated 286 (280-300); Sodium 139 mEq/L (136-145); eGFR For African Americans > 60 (> 60); eGFR For Non-African Americans > 60 (> 60)
[2017-11-28 06:30] LABS: Anisocytosis 2+ (Not Present); Hypochromasia Present (Not Present); Microcytosis Present (Not Present)
[2017-11-28 06:31] LABS: Large Platelets Present (Not Present); Platelet Clumps Few (Not Present); Poikilocytosis 1+ (Not Present); Reactive Lymphocytes Present (Not Present); Toxic Granulation Present (Not Present)
[2017-11-28] MEDS: Budesonide/Formoterol 160/4.5 MDI IH SCH ×2 (07:36→20:23)
--- NOTE | 2017-11-28 09:30 | Internal Med Progress Note ---
Addendum entered and electronically signed by Diana Bowman DO 11/28/17 14: 31: Assesment and plan (6) Sepsis Met 2 SIRS criteria on admission Likely d/t PNA and bacteremia Afebrile, BP stable, mildly tachycardic, white count continues to be elevated ID following, recommendations appreciated (7) Bacteremia Group B Strep as causative organism Peripheral BCx show no growth since 11/26/17 Rocephin day #3 Will follow ID recommendations Original Note: <Diana Bowman - Last Filed: 11/28/17 13:53> Date of Encounter: 11/28/17 Time of Encounter: 09:28 - Assessment and plan (1) Pneumonia Current Visit: Yes Status: Acute Assessment and plan: Patient's respiratory status stabilizing, transferred from ICU following extubation Patient has completed a 7 day course of IV levaquin Continue to monitor Infectious disease consulted and appreciate recommendations Tolerating 3L O2, at home requirement Afebrile, WBC remains elevated likely d/t both PNA and c.diff infection as above. - Continue Rocephin day #3 of 10 per ID recommendations Qualifiers: Pneumonia type: due to unspecified organism Laterality: bilateral Lung location: unspecified part of lung Qualified Code(s): J18.9 - Pneumonia, unspecified organism (2) COPD exacerbation Current Visit: Yes Status: Resolved Assessment and plan: Stable, no longer in exacerbation Diminished lung sounds on exam, faint wheezing appreciated Prednisone course completed - Will continue to monitor and continue duo nebs (3) Acute and chronic respiratory failure with hypercapnia Current Visit: Yes Status: Resolved Assessment and plan: Resolved, as above for COPD and PNA (4) Goals of care, counseling/discussion Current Visit: No Status: Acute Assessment and plan: See C. diff colitis plan (5) C. difficile colitis Current Visit: Yes Status: Acute Assessment and plan: Oral vancomycin day #6 of 14 WBC continues to be elevated, likely d/t having PNA in addition Symptoms improving, 1 soft stool recorded today - Back to SNF ([facility]) once symptoms have resolved - Time Spent With Patient Total time spent is greater than 50% in coordination of care (as documented) at patient's floor/unit and/or counseling patient: - Subjective Interval history: Patient seen and examined at bedside. Patient states she feels okay. States her SOB is at her baseline. Admits to cough, but improved and sputum is white. Denies CP, nausea, vomiting, urinary symptoms, abdominal pain, fevers, chills. She does not yet report a bowel movement this morning. Reports bowel movement last night was semisolid. - Constitutional Vitals: Temp Pulse Resp BP Pulse Ox 98.3 F 95 17 98/65 97 11/28/17 07:59 11/28/17 07:59 11/28/17 07:59 11/28/17 07:59 11/28/17 07:59 General appearance: Present: no acute distress Exam: General: No acute distress, resting comfortably in bed HEENT: head normocephalic/atraumatic, EOMI, PERRL, sclera anicteric Neck: Supple Cardio: RRR, no murmurs, +S1/S2 Pulm: faint wheezing upper lung [place], no rhonchi, no rales. poor airflow bilaterally Abdomen: soft, nontender, BS+, Extremities: No LE edema, no cyanosis, clubbing, Back: normal appearance on inspection Neuro: AAOx3, no focal deficit, no speech deficit, mentation intact, moves extremities spontaneously MSK: Strength 5/5 throughout, no visible deformities Skin: clean, dry, intact, no visible rashes Psych: Answers questions appropriately. Cooperative with exam Internal Medicine: Result - Labs CBC & Chem 7: 11/28/17 05:35 11/28/17 05:35 Labs: Short CBC 11/27/17 11/28/17 Range/Units 10:11 05:35 WBC 23.8 H 23.7 H (4.3-11.1) K/mcL Hgb 10.7 L 10.8 L (11.5-15.4) g/dL Hct 38.0 38.1 (35.3-44.9) % Plt Count 271 285 (140-400) K/mcL Neutrophils # 22.4 H 20.8 H (1.6-8.9) K/mcL BMP 11/27/17 11/28/17 08:01 05:35 Sodium 141 139 Potassium 4.0 4.0 Chloride 94 L 94 L Carbon Dioxide 43 H* 41 H* BUN 7 7 Creatinine 0.37 L 0.29 L Glucose 97 90 Calcium 9.0 8.5 L - ABG Interpretation ABG results: ABG ABG pH 7.33 pH Units (7.32-7.45) 11/23/17 13:32 ABG pCO2 104 mmHg (35-45) H* 11/23/17 13:32 ABG pO2 87 mmHg (85-104) 11/23/17 13:32 ABG O2 Saturation 95 % (95-98) 11/23/17 13:32 - VTE Documentation of Mechanical Device: Intermittent pneumatic compression device Consult Discharge Plan - Plan Referrals: Tripp Pena MD [Primary Care Provider] - <Jimmy Randall - Last Filed: 11/28/17 17:53> Date of Encounter: 11/28/17 - Assessment and plan (1) Acute and chronic respiratory failure with hypercapnia Current Visit: Yes Status: Resolved (2) C. difficile colitis Current Visit: Yes Status: Acute (3) Leukocytosis Current Visit: Yes Status: Acute Qualifiers: Leukocytosis type: other Qualified Code(s): D72.828 - Other elevated white blood cell count (4) Pneumonia Current Visit: Yes Status: Acute Qualifiers: Pneumonia type: due to unspecified organism Laterality: bilateral Lung location: unspecified part of lung Qualified Code(s): J18.9 - Pneumonia, unspecified organism (5) COPD exacerbation Current Visit: Yes Status: Resolved (6) Bacteremia Current Visit: Yes Status: Acute (7) CAD (coronary artery disease) Current Visit: No Status: Chronic Qualifiers: Coronary Disease-Associated Artery/Lesion type: [place] artery [place] vs. transplanted heart: [place] heart Associated angina: without angina Qualified Code(s): I25.10 - Atherosclerotic heart disease of [place] coronary artery without angina pectoris (8) Hypertension Current Visit: No Status: Chronic Qualifiers: Hypertension type: essential hypertension Qualified Code(s): I10 - Essential (primary) hypertension (9) Afib Current Visit: No Status: Chronic Qualifiers: Atrial fibrillation type: chronic Qualified Code(s): I48.2 - Chronic atrial fibrillation (10) Tobacco abuse Current Visit: No Status: Chronic (11) Goals of care, counseling/discussion Current Visit: No Status: Acute - Time Spent With Patient Total time spent is greater than 50% in coordination of care (as documented) at patient's floor/unit and/or counseling patient: - Constitutional Vitals: Temp Pulse Resp BP Pulse Ox 98.4 F 102 18 105/67 93 11/28/17 14:41 11/28/17 14:41 11/28/17 16:10 11/28/17 14:41 11/28/17 16:10 Internal Medicine: Result - Labs CBC & Chem 7: 11/28/17 05:35 11/28/17 05:35 Labs: Short CBC 11/28/17 Range/Units 05:35 WBC 23.7 H (4.3-11.1) K/mcL Hgb 10.8 L (11.5-15.4) g/dL Hct 38.1 (35.3-44.9) % Plt Count 285 (140-400) K/mcL Neutrophils # 20.8 H (1.6-8.9) K/mcL BMP 11/28/17 05:35 Sodium 139 Potassium 4.0 Chloride 94 L Carbon Dioxide 41 H* BUN 7 Creatinine 0.29 L Glucose 90 Calcium 8.5 L - ABG Interpretation ABG results: ABG ABG pH 7.33 pH Units (7.32-7.45) 11/23/17 13:32 ABG pCO2 104 mmHg (35-45) H* 11/23/17 13:32 ABG pO2 87 mmHg (85-104) 11/23/17 13:32 ABG O2 Saturation 95 % (95-98) 11/23/17 13:32 - Attending Attestation I examined this patient and my medical decision-making was reviewed with the Resident Physician on 11/28/17. I agree with the documented findings, disposition and treatment plan as described except to the extent set forth below. Ms De Oliveira is currently admitted for c diff colitis following respiratory failure. She remains moderate to high risk due to potential for worsening clinical status. Ms De Oliveira feels OK. Denies abd pain or nausea. Appetite OK. Continues to have leukocytosis. No fever. Exam alert Comfortable Mucus membranes dry Heart distant Lungs clear Abd soft and nontender I/P 1. C diff 2. Leukocytosis Further diagnoses and plan as above
[2017-11-28] MEDS: Vancomycin Oral Soln 250 MG/5 ML UDC PO SCH ×4 (09:49→21:20)
--- NOTE | 2017-11-28 14:30 | Infectious Disease Progress No ---
Date of Encounter: 11/28/17 Time of Encounter: 14:28 - Assessment and Plan (1) Sepsis Current Visit: Yes Status: Acute The patient had two SIRS criteria on admission. Likely secondary to bacteremia and PNA. Improved. WBC remains elevated. Bandemia has resolved. Tachycardia resolved. The patient has remained afebrile. Blood cultures drawn in the ER at [facility] were positive 1/2 sets for GBS. Blood culture drawn here upon arrival is NGTD x 1 set. Lactic acid was normal. Patient continues to have persistent leukocytosis. I still am not sure why. Check peripheral smear. Qualifiers: Qualified Code(s): A40.1 - Sepsis due to streptococcus, group B (2) Bacteremia Current Visit: Yes Status: Acute Causative organism: GBS. Repeat cultures are negative so far. I am not even sure if this was a contaminant I am concerned though because she has leukocytosis Continue Rocephin for now: On discharge probably stop all antibiotics and observe. (3) Pneumonia Current Visit: Yes Status: Acute Causative organism meta-Pneumovirus and maybe group B strep CXR completed 11/18/17 showed RLL airspace disease, PNA vs. pleural effusion. Repeat chest x-ray on November 26 reviewed S. pneumo and Legionella UAT negative. Sputum culture not collected. Repeat CXR now. Start Rocephin 2 grams IV daily as above. Duration of treatment depends on the clinical picture. But likely 10 days Qualifiers: Qualified Code(s): J18.9 - Pneumonia, unspecified organism (4) C. difficile colitis Current Visit: Yes Status: Acute Likely secondary to recent antibiotic use. C. diff positive on 11/22/17. Continue contact/C. diff precautions per protocol. Currently on oral vancomycin 125 mg every 6 hours Continue current treatment through December 06 (5) Acute encephalopathy Current Visit: No Status: Resolved (6) Acute exacerbation of chronic obstructive airways disease Current Visit: No Status: Acute (7) Acute and chronic respiratory failure with hypercapnia Current Visit: Yes Status: Resolved (8) CAD (coronary artery disease) Current Visit: No Status: Chronic Qualifiers: Qualified Code(s): I25.10 - Atherosclerotic heart disease of [place] coronary artery without angina pectoris (9) Hypertension Current Visit: No Status: Chronic Qualifiers: Qualified Code(s): I10 - Essential (primary) hypertension (10) Afib Current Visit: No Status: Chronic Qualifiers: Qualified Code(s): I48.91 - Unspecified atrial fibrillation (11) Tobacco abuse Current Visit: No Status: Acute - Subjective Interval history: Patient seen and examined. Appears comfortable. Laying in bed. No acute distress. Patient denies any headache, no URI symptoms, states her breathing is at baseline and continues to require O2 nasal cannula, denies any abdominal pain no nausea or vomiting states she has not had a bowel movement today. No other complaints. I even asked nursing staff and they stated that she is doing better clinically. Infect Dis PN-Objective Data - Labs CBC & Chem 7: 11/28/17 05:35 11/28/17 05:35 Labs: Laboratory Results - last 24 hr 11/28/17 11/28/17 05:35 05:35 WBC 23.7 H RBC 4.80 Hgb 10.8 L Hct 38.1 MCV 79.4 L MCH 22.5 L MCHC 28.3 L RDW 26.1 H Plt Count 285 MPV 11.1 Immature Gran % 0.7 Seg Neutrophils % 87.9 Lymphocytes % 5.4 Monocytes % 4.6 Eosinophils % 1.2 Basophils % 0.2 Neutrophils # 20.8 H Lymphocytes # 1.3 Monocytes # 1.1 Eosinophils # 0.3 Basophils # 0.1 Reactive Lymphocytes Present A Toxic Granulation Present A Clumped Platelets Few A Large Platelets Present A Hypochromasia Present A Poikilocytosis 1+ A Anisocytosis 2+ A Microcytosis Present A Sodium 139 Potassium 4.0 Chloride 94 L Carbon Dioxide 41 H* BUN 7 Creatinine 0.29 L Est GFR ( Amer) > 60 Est GFR (Non-Af Amer) > 60 BUN/Creatinine Ratio 24 Glucose 90 Calculated Osmolality 286 Calcium 8.5 L Cultures: Cultures 11/26/17 14:28 Blood Culture - Preliminary Peripheral Venipuncture No growth. 11/26/17 14:28 Blood Culture - Preliminary Peripheral Venipuncture No growth. 11/18/17 12:41 Blood Culture - Final Peripheral Venipuncture No growth. 11/18/17 10:55 Sputum Culture - Final Sputum 11/18/17 15:28 Urine Culture - Final Urine,[place] No growth. 11/18/17 15:28 Legionella Antigen - Final Urine,[place] Streptococcus pneumoniae Antigen (M - Final Serology 11/22/17 11/22/17 11/18/17 Range/Units 15:50 15:50 10:55 Stl C. [place]et[place]ensis PCR Not detected (Not detect) Stool Rotavirus A PCR Not detected (Not detect) Stl Adenov F 40/41 PCR Not detected (Not detect) Stool Astrovirus (PCR) Not detected (Not detect) Stool Campylobacter PCR Not detected (Not detect) Stl C. diff Tox B Gene Positive (Negative) Stl C. diff Tox A/B PCR See reflex test A (Not detect) Stool Cryptosporidium PCR Not detected (Not detect) Stl Sh Tox Pr E STEC PCR Not detected (Not detect) Stool E coli O157 PCR Not detected (Not detect) Stl Enterotoxigenic E PCR Not detected (Not detect) Stool EPEC (PCR) Not detected (Not detect) Stool EAEC (PCR) Not detected (Not detect) Stl E. histolytica PCR Not detected (Not detect) Stool Giardia Lamblia PCR Not detected (Not detect) Stool Salmonella PCR Not detected (Not detect) Stool Sapovirus (PCR) Not detected (Not detect) Stl P. shigelloides PCR Not detected (Not detect) Stl Shigella/EIEC PCR Not detected (Not detect) St Y.enterocolitica PCR Not detected (Not detect) Stool Vibrio (PCR) Not detected (Not detect) Stl Vibrio cholerae PCR Not detected (Not detect) Stl Norovirus GI/GII PCR Not detected (Not detect) Stl GI Panel (PCR) Com See below Chlamy pneumoniae PCR Not Detected (Not Detect) Adenovirus (PCR) Not Detected (Not Detect) B. pertussis DNA (PCR) Not Detected (Not Detect) B.parapertussis DNA PCR Not Detected (Not Detect) Coronavirus OC43 (PCR) Not Detected (Not Detect) Coronavirus HKU1 (PCR) Not Detected (Not Detect) Coronavirus 229E (PCR) Not Detected (Not Detect) Coronavirus NL63 (PCR) Not Detected (Not Detect) Human Metapneumovir PCR DETECTED A (Not Detect) Influenza A (H1) PCR Not Detected (Not Detect) Influ A (H1N1/09) PCR Not Detected (Not Detect) Influenza A (H3) PCR Not Detected (Not Detect) Influenza A Untype (PCR) Not Detected (Not Detect) Influenza Type B (PCR) Not Detected (Not Detect) M.pneumoniae DNA (PCR) Not Detected (Not Detect) Parainfluenza 1 (PCR) Not Detected (Not Detect) Parainfluenza 2 (PCR) Not Detected (Not Detect) Parainfluenza 3 (PCR) Not Detected (Not Detect) Parainfluenza 4 (PCR) Not Detected (Not Detect) RSV (PCR) Not Detected (Not Detect) Entero/Rhino (PCR) Not Detected (Not Detect) Exam - Constitutional Vitals: Temp Pulse Resp BP Pulse Ox 97.7 F 102 18 110/68 94 11/28/17 10:30 11/28/17 10:30 11/28/17 11:03 11/28/17 10:30 11/28/17 11:03 General appearance: no acute distress, no febrile - ENT ENT exam: Present: mucous membranes moist Additional comments: No oral lesions - Respiratory Additional comments: Chest expanding symmetrically, air sounds audible both lung [place]. Some diffuse wheezing noted. - Cardiovascular Cardiovascular exam: Present: RRR, +S1, +S2. Absent: systolic murmur - GI/Abdominal GI/Abdominal exam: Present: normal bowel sounds, soft. Absent: tenderness - Extremities Exam Extremities exam: Present: normal inspection. Absent: pedal edema - VTE Documentation of Mechanical Device: Intermittent pneumatic compression device Consult Discharge Plan - Plan Referrals: Tripp Pena MD [Primary Care Provider] -
[2017-11-28] MEDS: cefTRIAXone 2,000 MG in Water for inj. (sterile) 20 ML 20 ML IVP SCH (15:13)
[2017-11-28] MEDS: *HR* Rivaroxaban 10 MG TABLET PO SCH (17:08)
[2017-11-29] MEDS: Ipratropium/Albuterol Neb 3 ML IH SCH ×6 (03:56→23:55)
[2017-11-29 06:36] LABS: Hemoglobin 10.7 g/dL (11.5-15.4); Mean Corpuscular Hemoglobin 22.3 pg (28.0-33.3); Mean Platelet Volume 11.2 fL (9.4-12.4); Segmented Neutrophils % 88.5 %
[2017-11-29 06:38] LABS: Basophils % 0.2 %; Eosinophils # 0.3 K/mcL (0.0-0.6); Eosinophils % 1.5 %; Hematocrit 38.1 % (35.3-44.9); Immature Granulocytes % 0.6 % (0-4); Lymphocytes % 4.6 %; Mean Corpuscular HGB Conc 28.1 g/dL (31.6-35.5); Mean Corpuscular Volume 79.4 fL (83.0-100.0); Monocytes % 4.6 %; Neutrophils # 19.3 K/mcL (1.6-8.9); Platelet Count 278 K/mcL (140-400); Red Cell Distribution Width 25.5 % (11.5-14.5)
[2017-11-29 06:50] LABS: BUN/Creatinine Ratio 33 (6-26); Blood Urea Nitrogen 9 mg/dL (6-20); Calcium 8.7 mg/dL (8.6-10.3); Carbon Dioxide 39 mEq/L (23-29); Chloride 94 mEq/L (98-107); Glucose 96 mg/dL (70-105); Osmolality,Calculated 285 (280-300); Potassium 4.2 mEq/L (3.5-5.1); Sodium 138 mEq/L (136-145); eGFR For African Americans > 60 (> 60); eGFR For Non-African Americans > 60 (> 60)
[2017-11-29] MEDS: Budesonide/Formoterol 160/4.5 MDI IH SCH ×2 (07:40→20:00)
--- NOTE | 2017-11-29 09:03 | Internal Med Progress Note ---
<Jimmy Randall - Last Filed: 11/29/17 17:36> Date of Encounter: 11/29/17 - Assessment and plan (1) C. difficile colitis Current Visit: Yes Status: Acute (2) Acute and chronic respiratory failure with hypercapnia Current Visit: Yes Status: Resolved (3) Leukocytosis Current Visit: Yes Status: Acute Qualifiers: Leukocytosis type: leukemoid reaction Qualified Code(s): D72.823 - Leukemoid reaction (4) Pneumonia Current Visit: Yes Status: Acute Qualifiers: Pneumonia type: due to unspecified organism Laterality: bilateral Lung location: unspecified part of lung Qualified Code(s): J18.9 - Pneumonia, unspecified organism (5) COPD exacerbation Current Visit: Yes Status: Resolved (6) Bacteremia Current Visit: Yes Status: Acute (7) CAD (coronary artery disease) Current Visit: No Status: Chronic Qualifiers: Coronary Disease-Associated Artery/Lesion type: [place] artery [place] vs. transplanted heart: [place] heart Associated angina: without angina Qualified Code(s): I25.10 - Atherosclerotic heart disease of [place] coronary artery without angina pectoris (8) Hypertension Current Visit: No Status: Chronic Qualifiers: Hypertension type: essential hypertension Qualified Code(s): I10 - Essential (primary) hypertension (9) Afib Current Visit: No Status: Chronic Qualifiers: Atrial fibrillation type: chronic Qualified Code(s): I48.2 - Chronic atrial fibrillation (10) Tobacco abuse Current Visit: No Status: Chronic (11) Goals of care, counseling/discussion Current Visit: No Status: Acute - Time Spent With Patient Total time spent is greater than 50% in coordination of care (as documented) at patient's floor/unit and/or counseling patient: - Constitutional Vitals: Temp Pulse Resp BP Pulse Ox 98.4 F 103 16 95/62 93 11/29/17 10:32 11/29/17 10:32 11/29/17 16:02 11/29/17 10:32 11/29/17 16:02 Internal Medicine: Result - Labs CBC & Chem 7: 11/29/17 06:13 11/29/17 06:13 Labs: Short CBC 11/29/17 Range/Units 06:13 WBC 21.8 H (4.3-11.1) K/mcL Hgb 10.7 L (11.5-15.4) g/dL Hct 38.1 (35.3-44.9) % Plt Count 278 (140-400) K/mcL Neutrophils # 19.3 H (1.6-8.9) K/mcL BMP 11/29/17 06:13 Sodium 138 Potassium 4.2 Chloride 94 L Carbon Dioxide 39 H BUN 9 Creatinine 0.27 L Glucose 96 Calcium 8.7 - ABG Interpretation ABG results: ABG ABG pH 7.33 pH Units (7.32-7.45) 11/23/17 13:32 ABG pCO2 104 mmHg (35-45) H* 11/23/17 13:32 ABG pO2 87 mmHg (85-104) 11/23/17 13:32 ABG O2 Saturation 95 % (95-98) 11/23/17 13:32 Consult Discharge Plan - Plan Referrals: Tripp Pena MD [Primary Care Provider] - - Attending Attestation I examined this patient and my medical decision-making was reviewed with the Resident Physician on 11/29/17. I agree with the documented findings, disposition and treatment plan as described except to the extent set forth below. Ms De Oliveira is currently admitted for respiratory failure and C diff. She remains moderate to high risk due to potential for worsening clinical status. Ms De Oliveira is feeling OK. Denies pain at this time. Eating OK. No diarrhea. Exam alert Comfortable Mucus membranes dry Heart reg No wheeze Abd nontender I/P 1. Resp failure 2. COPD 3. Leukocytosis Further diagnoses and plan as above. Peripheral smear done - leukomoid reaction. <Diana Bowman - Last Filed: 11/29/17 19:18> Date of Encounter: 11/29/17 Time of Encounter: 09:03 - Assessment and plan (1) C. difficile colitis Current Visit: Yes Status: Acute Assessment and plan: Clinically improved Oral vancomycin day #7 of 14 WBC continues to be elevated, likely d/t having PNA in addition 1 soft stool recorded, consistency normal per pt - Back to SNF ([facility]) once symptoms have resolved (2) Acute and chronic respiratory failure with hypercapnia Current Visit: Yes Status: Resolved Assessment and plan: Resolved, as above for COPD and PNA (3) Pneumonia Current Visit: Yes Status: Acute Assessment and plan: Patient's respiratory status improved Patient has completed a 7 day course of IV levaquin Tolerating 3L nasal cannula Continue to monitor ID recommendations appreciated - Continue Rocephin day #4 of 10 per ID recommendations Qualifiers: Pneumonia type: due to unspecified organism Laterality: bilateral Lung location: unspecified part of lung Qualified Code(s): J18.9 - Pneumonia, unspecified organism (4) Bacteremia Current Visit: Yes Status: Acute Assessment and plan: Group B strep (5) COPD exacerbation Current Visit: Yes Status: Resolved Assessment and plan: Stable, no longer in exacerbation Prednisone course completed - continue duo nebs (6) Leukocytosis Current Visit: Yes Status: Acute Assessment and plan: Persistently elevated white count with unclear etiology White count 21.8 today Pt has improved clinically and is back to her baseline ID following, recommendations appreciated - peripheral smear results pending Qualifiers: Leukocytosis type: leukemoid reaction Qualified Code(s): D72.823 - Leukemoid reaction (7) Afib Current Visit: Yes Status: Chronic Assessment and plan: Anticoagulated with xarelto Has been slightly tachycardic and soft blood pressures Qualifiers: Atrial fibrillation type: chronic Qualified Code(s): I48.2 - Chronic atrial fibrillation (8) CAD (coronary artery disease) Current Visit: Yes Status: Chronic Assessment and plan: Continue lipitor Qualifiers: Coronary Disease-Associated Artery/Lesion type: [place] artery [place] vs. transplanted heart: [place] heart Associated angina: without angina Qualified Code(s): I25.10 - Atherosclerotic heart disease of [place] coronary artery without angina pectoris (9) Hypertension Current Visit: No Status: Chronic Assessment and plan: Hx of HTN Has not been hypertensive this admission SBP range mid 90's to 110's DBP range 60 to 72 Qualifiers: Hypertension type: essential hypertension Qualified Code(s): I10 - Essential (primary) hypertension (10) Tobacco abuse Current Visit: Yes Status: Chronic - Time Spent With Patient Total time spent is greater than 50% in coordination of care (as documented) at patient's floor/unit and/or counseling patient: - Subjective Interval history: Patient seen and examined at bedside. Patient feels well today. States her SOB is unchanged from baseline. Cough with sputum production unchanged from yesterday. Denies CP, nausea, vomiting, urinary symptoms, abdominal pain, fevers , chills. Reports bowel movements have been "medium" consistency. - Constitutional Vitals: Temp Pulse Resp BP Pulse Ox 98.2 F 102 16 104/66 94 11/29/17 07:13 11/29/17 07:13 11/29/17 07:40 11/29/17 07:13 11/29/17 07:40 General appearance: Present: no acute distress Exam: Exam: General: No acute distress, resting comfortably in bed HEENT: head normocephalic/atraumatic, EOMI, PERRL, sclera anicteric Neck: Supple Cardio: tachycardia, no murmurs, +S1/S2 Pulm: normal respiratory effort, no rhonchi, no rales. poor airflow bilaterally Abdomen: soft, nontender, BS+ Extremities: No LE edema, no cyanosis, clubbing, Back: normal appearance on inspection Neuro: AAOx3, no focal deficit, no speech deficit, mentation intact, moves extremities spontaneously MSK: Strength 5/5 throughout, no visible deformities Skin: clean, dry, intact, no visible rashes, small area of erythema at sacrum but no open lesions and has foam dressing over it Psych: Answers questions appropriately. Cooperative with exam Internal Medicine: Result - Labs CBC & Chem 7: 11/29/17 06:13 11/29/17 06:13 Labs: Short CBC 11/29/17 Range/Units 06:13 WBC 21.8 H (4.3-11.1) K/mcL Hgb 10.7 L (11.5-15.4) g/dL Hct 38.1 (35.3-44.9) % Plt Count 278 (140-400) K/mcL BMP 11/29/17 06:13 Sodium 138 Potassium 4.2 Chloride 94 L Carbon Dioxide 39 H BUN 9 Creatinine 0.27 L Glucose 96 Calcium 8.7 - ABG Interpretation ABG results: ABG ABG pH 7.33 pH Units (7.32-7.45) 11/23/17 13:32 ABG pCO2 104 mmHg (35-45) H* 11/23/17 13:32 ABG pO2 87 mmHg (85-104) 11/23/17 13:32 ABG O2 Saturation 95 % (95-98) 11/23/17 13:32 - VTE Documentation of Mechanical Device: Intermittent pneumatic compression device
[2017-11-29 09:39] LABS: Anisocytosis 1+ (Not Present); Platelet Estimate Normal (Normal)
[2017-11-29 09:40] LABS: Hypochromasia Present (Not Present)
--- NOTE | 2017-11-29 10:02 | Infectious Disease Progress No ---
Date of Encounter: 11/29/17 Time of Encounter: 10:00 - Assessment and Plan (1) Sepsis Current Visit: Yes Status: Acute The patient had two SIRS criteria on admission. Likely secondary to bacteremia and PNA. Improved. WBC remains elevated. Bandemia has resolved. Tachycardia resolved. The patient has remained afebrile. Blood cultures drawn in the ER at [facility] were positive 1/2 sets for GBS. Blood culture drawn here upon arrival is negative x 1 set. Additional blood cultures drawn 11/26/17 are NGTD x 2 sets. Patient continues to have persistent leukocytosis. Etiology remains unclear. Clinically, the patient appears to be back to baseline. Could be lag from steroids. Check peripheral smear.--> pending. Qualifiers: Sepsis type: Streptococcus group B Qualified Code(s): A40.1 - Sepsis due to streptococcus, group B (2) Bacteremia Current Visit: Yes Status: Acute Causative organism: GBS. True bacteremia vs. contaminant. Source likely PNA. Blood cultures drawn in the ER 11/18/17 1/2 sets was positive for GBS. Repeat blood cultures drawn here the same day is negative x 1 set. Additional blood cultures drawn 11/26/17 are NGTD x 2 sets. Initially, treated with Cefepime 11/18/-11/21, the de-esclated to Levaquin, which has intermediate susceptibility. Continue Rocephin 2 grams IV daily. Duration of treatment depends on the clinical picture. May consider stopping all antibiotics on discharge and observing, but will wait and see what the peripheral smear shows. creative services producer to assist with discharge planning. . (3) Pneumonia Current Visit: Yes Status: Acute Location: RLL. Causative organism likely Human Metapneumovirus and possible GBS given the patient's blood culture results. CXR completed 11/18/17 showed RLL airspace disease, PNA vs. pleural effusion. S. pneumo and Legionella UAT negative. Sputum culture not collected. Repeat CXR 11/23/17 showed a new mild left basilar atelectasis vs. pneumonia. Repeat CXR showed improved, but persistent LLL airspace disease. Continue Rocephin 2 grams IV daily as above. Duration of treatment depends on the clinical picture, but likely a total of 10 days. Qualifiers: Pneumonia type: due to unspecified organism Laterality: bilateral Lung location: unspecified part of lung Qualified Code(s): J18.9 - Pneumonia, unspecified organism (4) C. difficile colitis Current Visit: Yes Status: Acute Likely secondary to recent antibiotic use. C. diff positive on 11/22/17. Continue contact/C. diff precautions per protocol. Continue Vancomycin 125mg PO QID. Duration of treatment depends on the clinical picture, but recommend continuing current treatment through 12/06/17. (5) Acute encephalopathy Current Visit: No Status: Resolved Likely multifactorial: sepsis + hypercarbia. CT head negative. Resolved. (6) Acute exacerbation of chronic obstructive airways disease Current Visit: No Status: Acute (7) Acute and chronic respiratory failure with hypercapnia Current Visit: Yes Status: Resolved Likely secondary to PNA and AECOPD. Appears improved. Patient states she is unable to tolerate BiPAP at home. Management per the primary team. (8) CAD (coronary artery disease) Current Visit: Yes Status: Chronic Qualifiers: Coronary Disease-Associated Artery/Lesion type: [place] artery [place] vs. transplanted heart: [place] heart Associated angina: without angina Qualified Code(s): I25.10 - Atherosclerotic heart disease of [place] coronary artery without angina pectoris (9) Hypertension Current Visit: No Status: Chronic Qualifiers: Hypertension type: essential hypertension Qualified Code(s): I10 - Essential (primary) hypertension (10) Afib Current Visit: Yes Status: Chronic Qualifiers: Atrial fibrillation type: chronic Qualified Code(s): I48.2 - Chronic atrial fibrillation (11) Tobacco abuse Current Visit: Yes Status: Chronic - Subjective Interval history: Patient seen and examined. No acute events noted overnight. Patient states that overall she feels well and thinks her breathing is back to baseline. States she usually wears 4L of O2 per [place] at home and is currently on 2.5L here. Denies fevers, chills, or rigors. Denies headache, neck pain, or weakness. Denies congestion, earache, or sore throat. Denies chest pain. Reports persistent cough that is productive of thick white sputum that is chronic and dyspnea on exertion that is at baseline. Denies nausea, vomiting, or abdominal pain. States her stools are less frequent and more formed. States she went "a couple" of times yesterday. Reports urinary urgency, but otherwise denies urinary complaints. States her appetite is good. Denies oral thrush or new skin lesions. Complains of pain at her tailbone from lying in bed. Infect Dis PN-Objective Data - Labs CBC & Chem 7: 11/30/17 09:36 11/30/17 09:36 Labs: Laboratory Results - last 24 hr 11/28/17 11/29/17 11/29/17 19:13 06:13 06:13 WBC 21.8 H RBC 4.80 Hgb 10.7 L Hct 38.1 MCV 79.4 L MCH 22.3 L MCHC 28.1 L RDW 25.5 H Plt Count 278 MPV 11.2 Immature Gran % 0.6 Seg Neutrophils % 88.5 Lymphocytes % 4.6 Monocytes % 4.6 Eosinophils % 1.5 Basophils % 0.2 Neutrophils # 19.3 H Lymphocytes # 1.0 Monocytes # 1.0 Eosinophils # 0.3 Basophils # 0.0 Platelet Estimate Normal Hypochromasia Present A Anisocytosis 1+ A Smear Path Review See Below Sodium 138 Potassium 4.2 Chloride 94 L Carbon Dioxide 39 H BUN 9 Creatinine 0.27 L Est GFR ( Amer) > 60 Est GFR (Non-Af Amer) > 60 BUN/Creatinine Ratio 33 H Glucose 96 Calculated Osmolality 285 Calcium 8.7 Cultures: Cultures 11/26/17 14:28 Blood Culture - Preliminary Peripheral Venipuncture No growth. 11/26/17 14:28 Blood Culture - Preliminary Peripheral Venipuncture No growth. 11/18/17 12:41 Blood Culture - Final Peripheral Venipuncture No growth. 11/18/17 10:55 Sputum Culture - Final Sputum 11/18/17 15:28 Urine Culture - Final Urine,[place] No growth. 11/18/17 15:28 Legionella Antigen - Final Urine,[place] Streptococcus pneumoniae Antigen (M - Final Serology 11/22/17 11/22/17 11/18/17 Range/Units 15:50 15:50 10:55 Stl C. cayetanensis PCR Not detected (Not detect) Stool Rotavirus A PCR Not detected (Not detect) Stl Adenov F 40/41 PCR Not detected (Not detect) Stool Astrovirus (PCR) Not detected (Not detect) Stool Campylobacter PCR Not detected (Not detect) Stl C. diff Tox B Gene Positive (Negative) Stl C. diff Tox A/B PCR See reflex test A (Not detect) Stool Cryptosporidium PCR Not detected (Not detect) Stl Sh Tox Pr E STEC PCR Not detected (Not detect) Stool E coli O157 PCR Not detected (Not detect) Stl Enterotoxigenic E PCR Not detected (Not detect) Stool EPEC (PCR) Not detected (Not detect) Stool EAEC (PCR) Not detected (Not detect) Stl E. histolytica PCR Not detected (Not detect) Stool Giardia Lamblia PCR Not detected (Not detect) Stool Salmonella PCR Not detected (Not detect) Stool Sapovirus (PCR) Not detected (Not detect) Stl P. shigelloides PCR Not detected (Not detect) Stl Shigella/EIEC PCR Not detected (Not detect) St Y.enterocolitica PCR Not detected (Not detect) Stool Vibrio (PCR) Not detected (Not detect) Stl Vibrio cholerae PCR Not detected (Not detect) Stl Norovirus GI/GII PCR Not detected (Not detect) Stl GI Panel (PCR) Com See below Chlamy pneumoniae PCR Not Detected (Not Detect) Adenovirus (PCR) Not Detected (Not Detect) B. pertussis DNA (PCR) Not Detected (Not Detect) B.parapertussis DNA PCR Not Detected (Not Detect) Coronavirus OC43 (PCR) Not Detected (Not Detect) Coronavirus HKU1 (PCR) Not Detected (Not Detect) Coronavirus 229E (PCR) Not Detected (Not Detect) Coronavirus NL63 (PCR) Not Detected (Not Detect) Human Metapneumovir PCR DETECTED A (Not Detect) Influenza A (H1) PCR Not Detected (Not Detect) Influ A (H1N1/09) PCR Not Detected (Not Detect) Influenza A (H3) PCR Not Detected (Not Detect) Influenza A Untype (PCR) Not Detected (Not Detect) Influenza Type B (PCR) Not Detected (Not Detect) M.pneumoniae DNA (PCR) Not Detected (Not Detect) Parainfluenza 1 (PCR) Not Detected (Not Detect) Parainfluenza 2 (PCR) Not Detected (Not Detect) Parainfluenza 3 (PCR) Not Detected (Not Detect) Parainfluenza 4 (PCR) Not Detected (Not Detect) RSV (PCR) Not Detected (Not Detect) Entero/Rhino (PCR) Not Detected (Not Detect) Exam - Constitutional Vitals: Temp Pulse Resp BP Pulse Ox 98.2 F 102 16 104/66 94 05/03/18 07:13 11/29/17 07:13 11/29/17 07:40 11/29/17 07:13 11/29/17 07:40 General appearance: cooperative, no acute distress, thin - Head Head exam: Present: atraumatic, normal inspection, normocephalic - Eye Eye exam: Present: EOMI, normal appearance, PERRL Pupils: Present: normal accommodation - ENT ENT exam: Present: mucous membranes moist - Neck Neck exam: Present: normal inspection - Respiratory Respiratory exam: Present: decreased breath sounds. Absent: rales, respiratory distress, rhonchi, wheezes - Cardiovascular Cardiovascular exam: Present: RRR, +S1, +S2 - GI/Abdominal GI/Abdominal exam: Present: normal bowel sounds, soft. Absent: distended, tenderness - Extremities Exam Extremities exam: Present: normal inspection. Absent: joint swelling, pedal edema, tenderness - Back Exam Back exam: Absent: paraspinal tenderness, vertebral tenderness Additional comments: Non-blanchable area noted to the coccyx without open sore. - Neurological Exam Neurological exam: Present: alert, oriented X3, no focal deficits - Psychiatric Psychiatric exam: Present: normal affect, normal mood - Skin Skin exam: Present: dry, intact, normal color, warm - VTE Documentation of Mechanical Device: Intermittent pneumatic compression device Consult Discharge Plan - Plan Referrals: Tripp Pena MD [Primary Care Provider] - - Attending Attestation I examined this patient and my medical decision-making was reviewed with the Resident Physician. I agree with the documented findings, disposition and treatment plan as described except to the extent set forth below.
[2017-11-29] MEDS: Vancomycin Oral Soln 250 MG/5 ML UDC PO SCH ×4 (10:59→21:24)
[2017-11-29] MEDS: *HR* Rivaroxaban 10 MG TABLET PO SCH (17:35)
[2017-11-29] MEDS: cefTRIAXone 2,000 MG in Water for inj. (sterile) 20 ML 20 ML IVP SCH (17:35)
[2017-11-30] MEDS: Ipratropium/Albuterol Neb 3 ML IH SCH ×3 (04:14→11:07)
[2017-11-30] MEDS: Budesonide/Formoterol 160/4.5 MDI IH SCH (07:31)
[2017-11-30] MEDS: Vancomycin Oral Soln 250 MG/5 ML UDC PO SCH ×2 (08:19→11:36)
--- NOTE | 2017-11-30 09:45 | Infectious Disease Progress No ---
Date of Encounter: 11/30/17 Time of Encounter: 09:43 - Assessment and Plan (1) Sepsis Current Visit: Yes Status: Acute The patient had two SIRS criteria on admission. Likely secondary to bacteremia and PNA. Improved. WBC remains elevated. Bandemia has resolved. Tachycardia resolved. The patient has remained afebrile. Blood cultures drawn in the ER at [facility] were positive 1/2 sets for GBS. Blood culture drawn here upon arrival is negative x 1 set. Additional blood cultures drawn 11/26/17 are negative x 2 sets. Patient continues to have persistent leukocytosis. Etiology remains unclear. Clinically, the patient appears to be back to baseline. Could be lag from steroids. Peripheral smear showed relative/absolute neutrophilia with Dohle bodies and toxic granules. Qualifiers: Sepsis type: Streptococcus group B Qualified Code(s): A40.1 - Sepsis due to streptococcus, group B (2) Bacteremia Current Visit: Yes Status: Acute Causative organism: GBS. True bacteremia vs. contaminant. Source likely PNA. Blood cultures drawn in the ER 11/18/17 1/2 sets was positive for GBS. Repeat blood cultures drawn here the same day is negative x 1 set. Additional blood cultures drawn 11/26/17 are negative x 2 sets. Initially, treated with Cefepime 11/18/-11/21, then de-esclated to Levaquin, which has intermediate susceptibility. Given the clinical picture, this is likely a contaminant. Discontinue Rocephin and observe. Since the patient has C. diff, will avoid further antibiotics. If the patient clinically worsens, consider re-starting, but recommend stopping and observing for now. . (3) Pneumonia Current Visit: Yes Status: Acute Location: RLL. Causative organism likely Human Metapneumovirus and possible GBS given the patient's blood culture results. CXR completed 11/18/17 showed RLL airspace disease, PNA vs. pleural effusion. S. pneumo and Legionella UAT negative. Sputum culture not collected. Repeat CXR 11/23/17 showed a new mild left basilar atelectasis vs. pneumonia. Repeat CXR 11/26/17 showed improved, but persistent LLL airspace disease. Has completed 10 days of IV antibiotics. Recommend stopping antibiotics and observing. Qualifiers: Pneumonia type: due to unspecified organism Laterality: bilateral Lung location: unspecified part of lung Qualified Code(s): J18.9 - Pneumonia, unspecified organism (4) C. difficile colitis Current Visit: Yes Status: Acute Likely secondary to recent antibiotic use. C. diff positive on 11/22/17. Continue contact/C. diff precautions per protocol. Continue Vancomycin 125mg PO QID. Duration of treatment depends on the clinical picture, but recommend continuing current treatment through 12/06/17. (5) Acute encephalopathy Current Visit: No Status: Resolved Likely multifactorial: sepsis + hypercarbia. CT head negative. Resolved. (6) Acute exacerbation of chronic obstructive airways disease Current Visit: No Status: Acute (7) Acute and chronic respiratory failure with hypercapnia Current Visit: Yes Status: Resolved Likely secondary to PNA and AECOPD. Appears improved. Patient states she is unable to tolerate BiPAP at home. Management per the primary team. (8) CAD (coronary artery disease) Current Visit: Yes Status: Chronic Qualifiers: Coronary Disease-Associated Artery/Lesion type: [place] artery [place] vs. transplanted heart: [place] heart Associated angina: without angina Qualified Code(s): I25.10 - Atherosclerotic heart disease of [place] coronary artery without angina pectoris (9) Hypertension Current Visit: No Status: Chronic Qualifiers: Hypertension type: essential hypertension Qualified Code(s): I10 - Essential (primary) hypertension (10) Afib Current Visit: Yes Status: Chronic Qualifiers: Atrial fibrillation type: chronic Qualified Code(s): I48.2 - Chronic atrial fibrillation (11) Tobacco abuse Current Visit: Yes Status: Chronic - Subjective Interval history: Patient seen and examined. No acute events noted overnight. Patient states that overall she feels well and thinks her breathing is back to baseline. Denies fevers, chills, or rigors. Denies headache, neck pain, or weakness. Denies congestion, earache, or sore throat. Denies chest pain. Reports persistent cough that is productive of thick white sputum that is chronic and dyspnea on exertion that is at baseline. Denies nausea, vomiting, or abdominal pain. States her stools are less frequent and more formed. States she two times yesterday. Denies urinary complaints. States her appetite is good. Denies oral thrush or new skin lesions. Infect Dis PN-Objective Data - Labs CBC & Chem 7: 11/30/17 09:36 11/30/17 09:36 Cultures: Cultures 11/26/17 14:28 Blood Culture - Preliminary Peripheral Venipuncture No growth. 11/26/17 14:28 Blood Culture - Preliminary Peripheral Venipuncture No growth. 11/18/17 12:41 Blood Culture - Final Peripheral Venipuncture No growth. 11/18/17 10:55 Sputum Culture - Final Sputum 11/18/17 15:28 Urine Culture - Final Urine,[place] No growth. 11/18/17 15:28 Legionella Antigen - Final Urine,[place] Streptococcus pneumoniae Antigen (M - Final Serology 11/22/17 11/22/17 11/18/17 Range/Units 15:50 15:50 10:55 Stl C. cayetanensis PCR Not detected (Not detect) Stool Rotavirus A PCR Not detected (Not detect) Stl Adenov F 40/41 PCR Not detected (Not detect) Stool Astrovirus (PCR) Not detected (Not detect) Stool Campylobacter PCR Not detected (Not detect) Stl C. diff Tox B Gene Positive (Negative) Stl C. diff Tox A/B PCR See reflex test A (Not detect) Stool Cryptosporidium PCR Not detected (Not detect) Stl Sh Tox Pr E STEC PCR Not detected (Not detect) Stool E coli O157 PCR Not detected (Not detect) Stl Enterotoxigenic E PCR Not detected (Not detect) Stool EPEC (PCR) Not detected (Not detect) Stool EAEC (PCR) Not detected (Not detect) Stl E. histolytica PCR Not detected (Not detect) Stool Giardia Lamblia PCR Not detected (Not detect) Stool Salmonella PCR Not detected (Not detect) Stool Sapovirus (PCR) Not detected (Not detect) Stl P. shigelloides PCR Not detected (Not detect) Stl Shigella/EIEC PCR Not detected (Not detect) St Y.enterocolitica PCR Not detected (Not detect) Stool Vibrio (PCR) Not detected (Not detect) Stl Vibrio cholerae PCR Not detected (Not detect) Stl Norovirus GI/GII PCR Not detected (Not detect) Stl GI Panel (PCR) Com See below Chlamy pneumoniae PCR Not Detected (Not Detect) Adenovirus (PCR) Not Detected (Not Detect) B. pertussis DNA (PCR) Not Detected (Not Detect) B.parapertussis DNA PCR Not Detected (Not Detect) Coronavirus OC43 (PCR) Not Detected (Not Detect) Coronavirus HKU1 (PCR) Not Detected (Not Detect) Coronavirus 229E (PCR) Not Detected (Not Detect) Coronavirus NL63 (PCR) Not Detected (Not Detect) Human Metapneumovir PCR DETECTED A (Not Detect) Influenza A (H1) PCR Not Detected (Not Detect) Influ A (H1N1/09) PCR Not Detected (Not Detect) Influenza A (H3) PCR Not Detected (Not Detect) Influenza A Untype (PCR) Not Detected (Not Detect) Influenza Type B (PCR) Not Detected (Not Detect) M.pneumoniae DNA (PCR) Not Detected (Not Detect) Parainfluenza 1 (PCR) Not Detected (Not Detect) Parainfluenza 2 (PCR) Not Detected (Not Detect) Parainfluenza 3 (PCR) Not Detected (Not Detect) Parainfluenza 4 (PCR) Not Detected (Not Detect) RSV (PCR) Not Detected (Not Detect) Entero/Rhino (PCR) Not Detected (Not Detect) Exam - Constitutional Vitals: Temp Pulse Resp BP Pulse Ox 98.2 F 94 16 90/63 96 11/30/17 07:23 11/30/17 07:23 11/30/17 07:33 11/30/17 07:23 11/30/17 07:33 General appearance: cooperative, no acute distress, thin - Head Head exam: Present: atraumatic, normal inspection, normocephalic - Eye Eye exam: Present: EOMI, normal appearance, PERRL Pupils: Present: normal accommodation - ENT ENT exam: Present: mucous membranes moist - Neck Neck exam: Present: normal inspection - Respiratory Respiratory exam: Present: CTAB. Absent: rales, respiratory distress, rhonchi, wheezes - Cardiovascular Cardiovascular exam: Present: RRR, +S1, +S2 - GI/Abdominal GI/Abdominal exam: Present: normal bowel sounds, soft. Absent: distended, tenderness - Extremities Exam Extremities exam: Present: normal inspection. Absent: joint swelling, pedal edema, tenderness - Neurological Exam Neurological exam: Present: alert, oriented X3, no focal deficits - Psychiatric Psychiatric exam: Present: normal affect - Skin Skin exam: Present: dry, intact, normal color, warm - VTE Documentation of Mechanical Device: Intermittent pneumatic compression device Consult Discharge Plan - Plan Referrals: Tripp Pena MD [Primary Care Provider] - - Attending Attestation I examined this patient and my medical decision-making was reviewed with the Resident Physician. I agree with the documented findings, disposition and treatment plan as described except to the extent set forth below.
[2017-11-30 10:04] LABS: Immature Granulocytes % 0.6 % (0-4); Mean Corpuscular HGB Conc 28.7 g/dL (31.6-35.5); Mean Corpuscular Hemoglobin 22.6 pg (28.0-33.3); Mean Corpuscular Volume 78.8 fL (83.0-100.0)
[2017-11-30 10:05] LABS: Basophils % 0.1 %; Eosinophils # 0.3 K/mcL (0.0-0.6); Eosinophils % 1.6 %; Hematocrit 33.8 % (35.3-44.9); Hemoglobin 9.7 g/dL (11.5-15.4); Lymphocytes # 0.8 K/mcL (0.6-4.6); Mean Platelet Volume 10.8 fL (9.4-12.4); Monocytes # 0.9 K/mcL (0.0-1.3); Monocytes % 4.5 %; Neutrophils # 17.8 K/mcL (1.6-8.9); Platelet Count 253 K/mcL (140-400); Red Blood Count 4.29 M/mcL (3.82-4.97); Red Cell Distribution Width 25.5 % (11.5-14.5); Segmented Neutrophils % 89.2 %
[2017-11-30 10:27] LABS: Anisocytosis 2+ (Not Present); Hypochromasia Present (Not Present); Microcytosis Present (Not Present); Platelet Estimate Normal (Normal)
[2017-11-30 10:31] LABS: BUN/Creatinine Ratio 34 (6-26); Blood Urea Nitrogen 10 mg/dL (6-20); Calcium 8.6 mg/dL (8.6-10.3); Carbon Dioxide 40 mEq/L (23-29); Chloride 92 mEq/L (98-107); Glucose 105 mg/dL (70-105); Osmolality,Calculated 279 (280-300); Potassium 3.9 mEq/L (3.5-5.1); Sodium 135 mEq/L (136-145); eGFR For African Americans > 60 (> 60); eGFR For Non-African Americans > 60 (> 60)
[2017-11-30 10:42] VITALS: BP 107/70
--- NOTE | 2017-11-30 13:52 | Discharge Summary ---
<Jimmy Randall - Last Filed: 11/30/17 15:30> Orders not resulted at time of discharge: Pending orders 11/26/17 14:28 Culture,Blood [] Stat Culture,Blood,Additional [] Stat Date of Encounter: 11/30/17 - Discharge Diagnosis (1) Acute and chronic respiratory failure with hypercapnia Priority: Primary Status: Resolved (2) COPD exacerbation Priority: Primary Status: Resolved (3) C. difficile colitis Priority: Secondary Status: Resolved (4) CAD (coronary artery disease) Priority: Secondary Status: Chronic Qualifiers: Coronary Disease-Associated Artery/Lesion type: [place] artery [place] vs. transplanted heart: king salmon heart Associated angina: without angina Qualified Code(s): I25.10 - Atherosclerotic heart disease of [place] coronary artery without angina pectoris (5) Hypertension Priority: Secondary Status: Chronic Qualifiers: Hypertension type: essential hypertension Qualified Code(s): I10 - Essential (primary) hypertension (6) Afib Priority: Secondary Status: Chronic Qualifiers: Atrial fibrillation type: chronic Qualified Code(s): I48.2 - Chronic atrial fibrillation (7) Tobacco abuse Priority: Secondary Status: Chronic (8) Pneumonia Priority: Secondary Status: Resolved Qualifiers: Pneumonia type: due to unspecified organism Laterality: bilateral Lung location: unspecified part of lung Qualified Code(s): J18.9 - Pneumonia, unspecified organism (9) Bacteremia Priority: Secondary Status: Resolved (10) Leukocytosis Priority: Secondary Status: Acute Qualifiers: Leukocytosis type: leukemoid reaction Qualified Code(s): D72.823 - Leukemoid reaction Hospital course: Ms. De Oliveira is a 57 year old female - Time Spent with Patient Total time spent providing and/or coordinating discharge services: 39min - Discharge Medications Prescriptions: Vancomycin Oral Soln [Firvanq] 125 mg PO QID #20 [facility] Home Medications: Albuterol Sulfate [Ventolin Hfa] 1 puff IH Q6H PRN 06/19/17 [History] Atorvastatin [Lipitor] 80 mg PO HS 06/19/17 [History] Fluticasone/Vilanterol [Breo Ellipta 100-25 Mcg INH] 1 puff IH DAILY 06/19/17 [ History] Guaifenesin [Mucinex] 600 mg PO BID 06/19/17 [History] Hyoscyamine SL [Levsin Sl] 0.125 mg SL Q2H PRN 06/19/17 [History] Promethazine HCl 25 mg PO Q6H PRN 06/19/17 [History] Rivaroxaban [Xarelto] 20 mg PO DAILY 06/19/17 [History] Acetaminophen [Tylenol 650mg SUPP] 650 mg RC Q4H PRN 06/20/17 [History] Oxycodone HCl [Oxaydo] 5 mg PO Q6H PRN #20 tablet.orl 06/26/17 [Rx] Dextran 70/Hypromellose/Pf [Artificial Tears Drops] 1 drop OP BID PRN 11/18/17 [ History] Ibuprofen [Motrin] 400 mg PO Q6HR PRN 11/18/17 [History] Ipratropium/Albuterol Neb [Duoneb] 3 ml IH QID PRN 11/18/17 [History] predniSONE [PredniSONE] 10 mg PO DAILY 11/18/17 [History] Vancomycin Oral Soln [Firvanq] 125 mg PO QID #20 [facility] 11/30/17 [Rx] Allergies/Adverse Reactions: 3 Allergy/AdvReac Type Severity Reaction Status Date / Time codeine Allergy Hives Verified 06/20/17 08:23 Date of admission: 11/18/17 11:19 Primary care physician: Tripp Pena MD Consults: 11/18/17 12:51 Consult to Nutrition [CONS] Routine Comment: Consulting Provider: NUTRITION Reason for Dietary Consult: MST Score Consult to Historical Site Guide [CONS] Routine Reason for SW Consult: from ECF 11/19/17 13:33 Consult to Palliative Care [CONS] Routine Comment: Consulting Provider: Palliative Care [place] Reason for Consult: Reevaluate code status Time Notified: 13:33 Call Completed: Yes 11/20/17 08:21 Consult to Physical Therapy [CONS] Stat Comment: Evaluate, develop and implement POC Reason for Consult: Eval for ECF Does patient have active BEDREST order?: No Is patient medically & hemodynamically stable?: Yes 11/22/17 19:02 Consult to Infectious Diseases [CONS] Routine Consulting Provider: Infectious Disease [place] Reason for Consult: leukocytosis Call Completed: Yes - Constitutional Vitals: Temp Pulse Resp BP Pulse Ox 98.9 F 93 16 107/70 97 11/30/17 10:40 11/30/17 10:40 11/30/17 11:08 11/30/17 10:40 11/30/17 11:08 - Patient Status Disposition: Transfer SNF Condition: Good - Ambulatory Orders Ambulatory Orders: Complete Blood Count [HEME] Time Frame: 12/01/17, Facility: [facility], Location: Lab Complete Blood Count [HEME] Time Frame: 12/03/17, Facility: [facility], Location: Lab - Discharge Instructions Follow Up With: Tripp Pena MD [Primary Care Provider] - - Attending Attestation I examined this patient and my medical decision-making was reviewed with the Resident Physician on 11/30/17. I agree with the documented findings, disposition and treatment plan as described except to the extent set forth below. Ms De Oliveira has been admitted for acute respiratory failure. She was intubated in ICU and ultimately extubated and transferred to [facility] floor. Developed c diff colitis. Placed on PO Vancomycin. She gradually improved but continued to have leukocytosis. One blood cx with group B strep. She was seen by ID service and repeat blood cx negative. At this time she is afebrile and tolerating PO diet. She has no further diarrhea or abd pain. She has had very slow improvement in WBC. She will be discharged to [facility] for further care. Exam Alert Comfortable Mucus membranes dry Heart reg No wheeze Abd soft Plan D/C to ECF today. Follow WBC and symptoms. <Diana Bowman - Last Filed: 11/30/17 21:42> Orders not resulted at time of discharge: Pending orders 11/26/17 14:28 Culture,Blood [BC] Stat Culture,Blood,Additional [BC] Stat Date of Encounter: 11/30/17 Time of Encounter: 13:43 - Discharge Diagnosis (1) C. difficile colitis Priority: Secondary Status: Resolved (2) Acute and chronic respiratory failure with hypercapnia Priority: Primary Status: Resolved (3) Pneumonia Priority: Secondary Status: Resolved Qualifiers: Pneumonia type: due to unspecified organism Laterality: bilateral Lung location: unspecified part of lung Qualified Code(s): J18.9 - Pneumonia, unspecified organism (4) Bacteremia Priority: Secondary Status: Resolved (5) COPD exacerbation Priority: Primary Status: Resolved (6) Leukocytosis Priority: Secondary Status: Acute Qualifiers: Leukocytosis type: leukemoid reaction Qualified Code(s): D72.823 - Leukemoid reaction (7) Afib Priority: Secondary Status: Chronic Qualifiers: Atrial fibrillation type: chronic Qualified Code(s): I48.2 - Chronic atrial fibrillation (8) CAD (coronary artery disease) Priority: Secondary Status: Chronic Qualifiers: Coronary Disease-Associated Artery/Lesion type: [place] artery [place] vs. transplanted heart: [place] heart Associated angina: without angina Qualified Code(s): I25.10 - Atherosclerotic heart disease of [place] coronary artery without angina pectoris (9) Hypertension Priority: Secondary Status: Chronic Qualifiers: Hypertension type: essential hypertension Qualified Code(s): I10 - Essential (primary) hypertension (10) Tobacco abuse Priority: Secondary Status: Chronic Hospital course: Ms. De Oliveira is a 57 year old female with a PMHx of COPD, AFib, CAD, GI bleed, anemia, cognitive communication defect presented to ED from nursing facility for altered mental status and reported severe COPD exacerbation. She was admitted to ICU on arrival from [place] ED and placed on BiPAP. Vitals at time of presentation were significant for HR 112, 87% on 4L of O2. Labs significant for WBC of 16.8, H/H of 6.8/28, ABG showing Respiratory acidosis, bicarb >45, BNP 175. Her respiratory function continued to decline on BiPAP and she was ultimately intubated on 11/18/17. Chest Xray suggestive of PNA. She was treated with cefepime, vancomycin, azithromycin as well as solumedrol while in the ICU. Respiratory infectious panel positive for human metapneumovirus. She was successfully weaned from ventilator and transferred to medical floor. During stay she did develop diarrhea and tested positive for c.difficile colitis. She was treated with flagyl and oral vancomycin. Her symptoms have since improved and she will be discharged to SNF with oral vancomycin. Infectious disease was consulted during admission. Her lab results did improve, aside from a persistently elevated WBC. Her vitals and symptoms did improve and she was back on her home O2 requirement of 3L O2. She will be discharged to SNF in stable medical condition and will follow up with ID as outpatient. - Time Spent with Patient Total time spent providing and/or coordinating discharge services: Date of admission: 11/18/17 11:19 Primary care physician: Tripp Pena MD Consults: 11/18/17 12:51 Consult to Nutrition [CONS] Routine Comment: Consulting Provider: NUTRITION Reason for Dietary Consult: MST Score Consult to Historical Site Guide [CONS] Routine Reason for SW Consult: from ECF 11/19/17 13:33 Consult to Palliative Care [CONS] Routine Comment: Consulting Provider: Palliative Care [place] Reason for Consult: Reevaluate code status Time Notified: 13:33 Call Completed: Yes 11/20/17 08:21 Consult to Physical Therapy [CONS] Stat Comment: Evaluate, develop and implement POC Reason for Consult: Eval for ECF Does patient have active BEDREST order?: No Is patient medically & hemodynamically stable?: Yes 11/22/17 19:02 Consult to Infectious Diseases [CONS] Routine Consulting Provider: Infectious Disease [place] Reason for Consult: leukocytosis Call Completed: Yes Discharging clinician: Diana Bowman Anticipated date of discharge: 11/30/17 - Constitutional Vitals: Temp Pulse Resp BP Pulse Ox 98.9 F 93 16 107/70 97 11/30/17 10:40 11/30/17 10:40 11/30/17 11:08 11/30/17 10:40 11/30/17 11:08 General appearance: Present: no acute distress Exam: General: No acute distress, resting comfortably in bed HEENT: head normocephalic/atraumatic, EOMI, PERRL, sclera anicteric Neck: Supple Cardio: tachycardia, no murmurs, +S1/S2 Pulm: normal respiratory effort, no rhonchi, no rales. poor airflow bilaterally Abdomen: soft, nontender, BS+ Extremities: No LE edema, no cyanosis, clubbing, Neuro: AAOx3, no focal deficit, no speech deficit, mentation intact, moves extremities spontaneously MSK: Strength 5/5 throughout, no visible deformities Psych: Answers questions appropriately. Cooperative with exam - Patient Status Overall status at discharge: patient is progressing back to baseline - VTE Documentation of Mechanical Device: Intermittent pneumatic compression device
--- NOTE | 2017-11-30 14:43 | Physician Discharge Referral ---
ExtendedCare Referral Info Transfer To: [facility] Provider in Charge after Transfer: PCP Institutional Level of Care: Skilled - Diagnosis (1) C. difficile colitis Priority: Secondary Status: Acute (2) Acute and chronic respiratory failure with hypercapnia Priority: Primary Status: Resolved (3) Pneumonia Priority: Secondary Status: Acute (4) Bacteremia Priority: Secondary Status: Acute (5) COPD exacerbation Priority: Secondary Status: Resolved (6) Leukocytosis Priority: Secondary Status: Acute (7) Afib Priority: Secondary Status: Chronic (8) CAD (coronary artery disease) Priority: Secondary Status: Chronic (9) Hypertension Priority: Secondary Status: Chronic (10) Tobacco abuse Priority: Secondary Status: Chronic - Transfer Medications Prescriptions: Vancomycin Oral Soln [Firvanq] 125 mg PO QID #20 [facility] Home Medications: Albuterol Sulfate [Ventolin Hfa] 1 puff IH Q6H PRN 06/19/17 [History] Atorvastatin [Lipitor] 80 mg PO HS 06/19/17 [History] Fluticasone/Vilanterol [Breo Ellipta 100-25 Mcg INH] 1 puff IH DAILY 06/19/17 [ History] Guaifenesin [Mucinex] 600 mg PO BID 06/19/17 [History] Hyoscyamine SL [Levsin Sl] 0.125 mg SL Q2H PRN 06/19/17 [History] Promethazine HCl 25 mg PO Q6H PRN 06/19/17 [History] Rivaroxaban [Xarelto] 20 mg PO DAILY 06/19/17 [History] Acetaminophen [Tylenol 650mg SUPP] 650 mg RC Q4H PRN 06/20/17 [History] Oxycodone HCl [Oxaydo] 5 mg PO Q6H PRN #20 tablet.orl 06/26/17 [Rx] Dextran 70/Hypromellose/Pf [Artificial Tears Drops] 1 drop OP BID PRN 11/18/17 [ History] Ibuprofen [Motrin] 400 mg PO Q6HR PRN 11/18/17 [History] Ipratropium/Albuterol Neb [Duoneb] 3 ml IH QID PRN 11/18/17 [History] predniSONE [PredniSONE] 10 mg PO DAILY 11/18/17 [History] Vancomycin Oral Soln [Firvanq] 125 mg PO QID #20 [facility] 11/30/17 [Rx] Allergies/Adverse Reactions: 3 Allergy/AdvReac Type Severity Reaction Status Date / Time codeine Allergy Hives Verified 06/20/17 08:23 - Respiratory Orders Oxygen / L per min (3L) Smoking Cessation: Smoking cessation has been advised. For more information, call the [place] Tobacco Quit Line at 3-037-DHTD-NOW. - Ancillary Orders May use pressure relief devices daily prn, May consult with Dentist, Manager Laboratory, Operator Vacuum PRN - Advance Directives Code Status: Full Code - Mobility Orders Chair, Ambulate - Rehabiliation Orders Rehab Potential: Fair Rehab Orders: ROM Exercises, Evaluation for Physical Therapy, Evaluation for Occupational Therapy - Treatments Skin tear care topically daily PRN per policy, May check for fecal impaction rectally daily PRN - Diet Orders Regular CERTIFICATION: I certify that the transfer of the above named patient to an Extended Care Facility is necessary for the continuing treatment of the diagnosis listed. The above information is true and accurate reflection of patient's current condition. Confidential - Redisclosure prohibited without a patient's written consent.
== END 2017-11-30 16:23 | DRG 720 ==
LOC: SUATTDRO 11:19 → ICNU 11:19 → 3ANU 11-20 10:06
PROVIDERS: ADMIT Internal Medicine Hospice and Palliative Medicine; ATTEND Internal Medicine